=== PATIENT | female | born 1940 | race Caucasian/White ===

== ENCOUNTER 2018-03-18 11:59 | Inpatient (IN) | payer OTHER, SELFPAY ==
[2018-03-18 12:07] VITALS: BP 179/89; PULSE 86; RESP 21; TEMP 36.9; O2SAT 98; BMI 36.8
--- NOTE | 2018-03-18 12:38 | DI.RAD.S_ITS ---
PROCEDURE: XR KNEE RT 3V INDICATIONS: fall TECHNIQUE: 3 views of the knee were acquired. COMPARISON: [facility], XR KNEE ARTHRITIC SERIES , 01/22/2018, 8:28. [facility], XR KNEE ARTHRITIC SERIES , 02/25/2018, 8:23. FINDINGS: Bones: Previously seen patellar fracture now demonstrates increased, severe displacement, measuring roughly 25 mm craniocaudal. No suspicious bony lesions. Right knee arthroplasty. Soft tissues: No joint effusion. No suspicious soft tissue calcifications. IMPRESSION: 1. Increased displacement of patellar fracture as described above. 2. Knee arthroplasty. Dictated by: Cristian Hartman M.D. on 03/18/2018 at 13:07 Approved by: Cristian Hartman M.D. on 03/18/2018 at 13:08
[2018-03-18 13:00] VITALS: BP 159/111; PULSE 82; RESP 16; O2SAT 100
[2018-03-18 14:30] VITALS: BP 143/69; PULSE 80; O2SAT 99
--- NOTE | 2018-03-18 14:34 | ED_ITS ---
HPI - Extremity Injury (Lower) <Christal Fierro PA-C - Last Filed: 03/18/18 21:59> General Chief Complaint: Extremity Injury, Lower Stated Complaint: Fall, dislocated R knee Time Seen by Provider: 03/18/18 14:33 Source: EMS Mode of arrival: EMS Limitations: no limitations History of Present Illness HPI Narrative: This 77-year-old female who has a history of R. patellar fx last November returns due to fall today. She got her foot caught on the metal edge of a cement step and fell onto the sidewalk. She states she actually fell onto her left elbow and bumped her left hip, both of which feel fine, but the impact rolled her onto her right knee, which she had on the sidewalk. She was unable to get up due to pain in the knee and EMS was called. She states that she did not hit her head, no LOC, no neck pain. She denies any other injury, states she knew exactly what had happened at the time, now concerned about her previous fracture. Related Data Home Medications Medication Instructions Recorded Confirmed No Known Home Medications 03/18/18 03/18/18 Allergies Allergy/AdvReac Type Severity Reaction Status Date / Time Sulfa (Sulfonamide AdvReac Nausea Verified 03/18/18 12:12 Antibiotics) Review of Systems <Christal Fierro PA-C - Last Filed: 03/18/18 21:59> Review of Systems All systems reviewed & are unremarkable except as noted in HPI and below Exam <Christal Fierro PA-C - Last Filed: 03/18/18 21:59> Narrative Exam Narrative: GENERAL APPEARANCE: Patient sitting comfortably, in no distress. LUNGS: Clear to auscultation bilaterally. HEART: Rate and rhythm regular without murmur, normal S1 and S2, no S3 or S4. DERMATOLOGIC: Ecchymoses over the right patella, faint ecchymoses and very superficial abrasions over the left elbow. MUSCULOSKELETAL: No tenderness to palpation over the left hip. No tenderness over the left elbow or forearm, full range of motion. There is right knee effusion, tender throughout the patella, unable to fully extend and can flex to less than 45? secondary to tenderness. EXTREMITIES: No cyanosis or edema NEUROVASCULAR: Left lower extremity pedal pulses 2+, sensation grossly intact Initial Vital Signs Initial Vital Signs: Vital Signs Temperature 98.5 F 03/18/18 12:07 Pulse Rate 86 03/18/18 12:07 Respiratory Rate 21 03/18/18 12:07 Blood Pressure 179/89 H 03/18/18 12:07 Pulse Oximetry 98 03/18/18 12:07 <Rosalee Burch DO - Last Filed: 03/19/18 08:20> Initial Vital Signs Initial Vital Signs: Vital Signs Temperature 98.5 F 03/18/18 12:07 Pulse Rate 86 03/18/18 12:07 Respiratory Rate 21 03/18/18 12:07 Blood Pressure 179/89 H 03/18/18 12:07 Pulse Oximetry 98 03/18/18 12:07 Course <Christal Fierro PA-C - Last Filed: 03/18/18 21:59> Additional Information: I have spoken with patient's Orthopod, Dr. Bellamy, who reviewed xrays and plans repair for tomorrow. Patient will be admitted. Orders Ordered: Vancomycin HCl/Dextrose (Vancomycin) 1,000 mg in 200 mls @ 200 mls/hr IV NOW ONE Stop: 03/19/18 14:57 Lactated Ringer's (Lactated Ringers) 1,000 mls @ 75 mls/hr IV CONT WALI Morphine Sulfate (Morphine) 2 mg IV Q2HR PRN PRN Reason: Pain, Moderate (4-6) Last Admin: 03/19/18 07:48 Dose: 2 mg Admin: 03/19/18 04:44 Dose: 2 mg Admin: 03/19/18 01:00 Dose: 2 mg Admin: 03/18/18 21:58 Dose: 2 mg Admin: 03/18/18 20:19 Dose: 2 mg Morphine Sulfate (Morphine) 4 mg IV Q2HR PRN PRN Reason: Pain, Severe (7-10) Sodium Chloride (Normal Saline 0.9% Flush) 10 ml IV PRN PRN PRN Reason: Flush Sodium Chloride (Normal Saline 0.9% Flush) 10 ml IV BID WALI Last Admin: 03/19/18 07:49 Dose: 10 ml Admin: 03/18/18 20:19 Dose: 10 ml Discontinued Medications Morphine Sulfate (Morphine) 1 mg IV Q2HR PRN PRN Reason: Pain, Moderate (4-6) Vital Signs - 8 hr 03/19/18 00:35 03/19/18 05:30 Temperature 98.2 F 97.9 F Pulse Rate 93 H 93 H Respiratory Rate 18 18 Blood Pressure 126/58 L 130/64 Pulse Oximetry 100 99 <Rosalee Burch DO - Last Filed: 03/19/18 08:20> Orders Ordered: Vancomycin HCl/Dextrose (Vancomycin) 1,000 mg in 200 mls @ 200 mls/hr IV NOW ONE Stop: 03/19/18 14:57 Lactated Ringer's (Lactated Ringers) 1,000 mls @ 75 mls/hr IV CONT WALI Morphine Sulfate (Morphine) 2 mg IV Q2HR PRN PRN Reason: Pain, Moderate (4-6) Last Admin: 03/19/18 07:48 Dose: 2 mg Admin: 03/19/18 04:44 Dose: 2 mg Admin: 03/19/18 01:00 Dose: 2 mg Admin: 03/18/18 21:58 Dose: 2 mg Admin: 03/18/18 20:19 Dose: 2 mg Morphine Sulfate (Morphine) 4 mg IV Q2HR PRN PRN Reason: Pain, Severe (7-10) Sodium Chloride (Normal Saline 0.9% Flush) 10 ml IV PRN PRN PRN Reason: Flush Sodium Chloride (Normal Saline 0.9% Flush) 10 ml IV BID WALI Last Admin: 03/19/18 07:49 Dose: 10 ml Admin: 03/18/18 20:19 Dose: 10 ml Discontinued Medications Morphine Sulfate (Morphine) 1 mg IV Q2HR PRN PRN Reason: Pain, Moderate (4-6) Vital Signs - 8 hr 03/19/18 00:35 03/19/18 05:30 Temperature 98.2 F 97.9 F Pulse Rate 93 H 93 H Respiratory Rate 18 18 Blood Pressure 126/58 L 130/64 Pulse Oximetry 100 99 MDM - Extremity Injury (Lower) <Christal Fierro PA-C - Last Filed: 03/18/18 21:59> Lab Data Result diagrams: 03/18/18 16:08 03/18/18 16:08 Lab Results 03/18/18 03/18/18 03/18/18 Range/Units 16:08 16:08 Unknown WBC 6.4 (4.5-11.0) X10^3/uL RBC 4.25 (4.0-5.2) X10^6/uL Hgb 12.1 (12.0-16.0) g/dL Hct 36.3 (36-46) % MCV 85.4 (80-100) fL MCH 28.6 (26-34) PG MCHC 33.4 (30-36) % RDW 14.5 (11.6-14.8) % Plt Count 267 (150-400) X10^3/uL Neut % (Auto) 70.6 (50-75) % Lymph % (Auto) 16.3 L (25-40) % [place] % (Auto) 8.9 (3-14) % Eos % (Auto) 3.2 (2-4) % Baso % (Auto) 1.0 (0-2) % Neut # (Auto) 4500 (4414-7699) /uL PT 10.6 (10.1-12.7) SECONDS INR 0.9 (0.9-1.3) APTT 35 (26.4-36.2) SECONDS Sodium 140 (137-145) mmol/L Potassium 4.2 (3.4-5.1) mmol/L Chloride 105 (98-107) mmol/L Carbon Dioxide 28 (22-32) mmol/L BUN 24 H (7-17) mg/dL Creatinine 1.00 (0.52-1.04) mg/dL Estimated GFR 53.8 L (>60) mL/min BUN/Creatinine Ratio 24.0 H (6-22) Glucose 90 (80-110) mg/dL Calcium 9.4 (8.4-10.2) mg/dL Labs pending Imaging Data knee: Radiologist's impression: [address] [address] XRay Report Signed Patient: Catrachita Bellamy MR#: [id number] : 1940 Acct:[id number] Age/Sex: 77 / F Date of Service: 03/18/18 Loc: ED Accession Number: [id number] Procedure: XR knee RT 3V Ordering Provider: Rosalee Burch D.O. PROCEDURE: XR KNEE RT 3V INDICATIONS: fall TECHNIQUE: 3 views of the knee were acquired. COMPARISON: [facility] [place], CR, XR KNEE ARTHRITIC SERIES BI, 01/22/2018, 8:28. [facility] [place], CR, XR KNEE ARTHRITIC SERIES BI, 02/25/2018, 8:23. FINDINGS: Bones: Previously seen patellar fracture now demonstrates increased, severe displacement, measuring roughly 25 mm craniocaudal. No suspicious bony lesions. Right knee arthroplasty. Soft tissues: No joint effusion. No suspicious soft tissue calcifications. IMPRESSION: 1. Increased displacement of patellar fracture as described above. 2. Knee arthroplasty. Dictated by: Cristian Hartman M.D. on 03/18/2018 at 13:07 Approved by: Cristian Hartman M.D. on 03/18/2018 at 13:08 ECG Data Attestation: I personally reviewed and interpreted this ECG as follows: (Normal sinus rhythm, rate 82) Prior ECG tracings: not available for review <Rosalee Burch, DO - Last Filed: 03/19/18 08:20> Lab Data Lab Results 03/18/18 03/18/18 03/18/18 Range/Units 16:08 16:08 Unknown WBC 6.4 (4.5-11.0) X10^3/uL RBC 4.25 (4.0-5.2) X10^6/uL Hgb 12.1 (12.0-16.0) g/dL Hct 36.3 (36-46) % MCV 85.4 (80-100) fL MCH 28.6 (26-34) PG MCHC 33.4 (30-36) % RDW 14.5 (11.6-14.8) % Plt Count 267 (150-400) X10^3/uL Neut % (Auto) 70.6 (50-75) % Lymph % (Auto) 16.3 L (25-40) % [place] % (Auto) 8.9 (3-14) % Eos % (Auto) 3.2 (2-4) % Baso % (Auto) 1.0 (0-2) % Neut # (Auto) 4500 (0029-6861) /uL PT 10.6 (10.1-12.7) SECONDS INR 0.9 (0.9-1.3) APTT 35 (26.4-36.2) SECONDS Sodium 140 (137-145) mmol/L Potassium 4.2 (3.4-5.1) mmol/L Chloride 105 (98-107) mmol/L Carbon Dioxide 28 (22-32) mmol/L BUN 24 H (7-17) mg/dL Creatinine 1.00 (0.52-1.04) mg/dL Estimated GFR 53.8 L (>60) mL/min BUN/Creatinine Ratio 24.0 H (6-22) Glucose 90 (80-110) mg/dL Calcium 9.4 (8.4-10.2) mg/dL Discharge Plan Departure Patient Disposition: Admitted As Inpatient Clinical Impression: Patellar fracture Discharge Date/Time: 03/18/18 17:04 Interventions: ED Discharge Assessment Last Done: 03/18/18 17:04 Admit Date/Time: 03/18/18 15:58 Admit Provider: Doris Bellamy <Rosalee Burch DO - Last Filed: 03/19/18 08:20> Cosign ED Attending Cosignature Attestation: I was immediately available in the department for consultation. This documentation has been reviewed and I agree with assessment and plan. Supervised by Rosalee Burch DO
[2018-03-18 16:12] LABS: INR 0.9 (0.9-1.3); Prothrombin Time 10.6 SECONDS (10.1-12.7)
[2018-03-18 16:14] LABS: PTT Partial Thromboplastin Tim 35 SECONDS (26.4-36.2)
[2018-03-18 16:16] LABS: Add Manual Diff / Slide Review NO; Eosinophils Percent Auto 3.2 % (2-4); Hematocrit 36.3 % (36-46); Hemoglobin 12.1 g/dL (12.0-16.0); Lymphocytes Percent Auto 16.3 % (25-40); Mean Corpuscular HGB Conc 33.4 % (30-36); Mean Corpuscular Hemoglobin 28.6 PG (26-34); Mean Corpuscular Volume 85.4 fL (80-100); Monocytes Percent Auto 8.9 % (3-14); Neutrophils Absolute Auto 4500 /uL (1500-7000); Neutrophils Percent Auto 70.6 % (50-75); Platelet Count 267 X10^3/uL (150-400); Red Blood Cell Count 4.25 X10^6/uL (4.0-5.2); Red Cell Distribution Width 14.5 % (11.6-14.8); White Blood Cell Count 6.4 X10^3/uL (4.5-11.0)
[2018-03-18 16:29] LABS: Blood Urea Nitrogen 24 mg/dL (7-17); Calcium 9.4 mg/dL (8.4-10.2); Carbon Dioxide 28 mmol/L (22-32); Chloride 105 mmol/L (98-107); Estimated Glomerular Filt Rate 53.8 mL/min (>60); Glucose 90 mg/dL (80-110); HEMOLYSIS < 15 (0-50); Potassium 4.2 mmol/L (3.4-5.1); Sodium 140 mmol/L (137-145)
[2018-03-18 16:30] VITALS: BP 162/77; PULSE 87; O2SAT 99
[2018-03-18 17:10] VITALS: BP 146/76; PULSE 83; RESP 18; TEMP 36.7; O2SAT 99
[2018-03-18 17:20] VITALS: BMI 36.8
--- NOTE | 2018-03-18 19:42 | PM.HP.1 ---
History of Present Illness Date Patient Seen: 03/18/18 Time Patient Seen: 18:01 Chief complaint: Fall, dislocated R knee Narrative: Natalie is a pleasant 77-year-old female with a history of a right total knee arthroplasty in 2008. She was doing reasonably well until October of this year when she fell and landed on her right knee and then had increased right knee pain and a popping sensation. X-rays showed evidence of minor probable patella fracture without disruption of her patellar component. She was treated conservatively and went on to have radiographic evidence of a probable union of her right patella. Her pain markedly decreased and she had resumed her activities including volunteering at the local [employer]. She was coming out of the middle school today when she caught her foot and fell directly on her right leg and noted the acute onset of fairly severe right knee pain. She had difficulty with weight-bearing and ongoing pain. She came to [facility] for evaluation and was noted to have a displaced right patella fracture. Patient History Medical History Hammer toes, bilateral (Acute) Bilateral primary osteoarthritis of knee (Chronic) Surgical History Status post bilateral knee replacements (Resolved) Status post hysterectomy (Resolved) Family & Social History Family History: Reviewed 03/18/18 by Doris Bellamy MD Social History: household members family Prior Living Arrangements Mobile home Safety & Behavioral: Feels Safe in Current Yes Environment Been Physically Hurt or No Threatened By a Person Suicidal Ideation Description None Tobacco & Substance use: Smoking Status Never smoker alcohol intake never alcohol intake frequency 0-2 drinks per day Substance Use Type does not use Meds Home Medications Medication Instructions Recorded Confirmed Type No Known Home Medications 03/18/18 03/18/18 History Allergies Allergy/AdvReac Type Severity Reaction Status Date / Time Sulfa (Sulfonamide AdvReac Nausea Verified 03/18/18 12:12 Antibiotics) Review of Systems Review of Systems She denies fevers or chills, she notes that she is trying to be fairly physically active and does not have severe balance problems although she does have a history of multiple falls. She lives independently and is mobile. She did not have any chest pain dizziness or shortness of breath prior to her fall. Exam Vital Signs (past 8 hours): - 03/18/18 12:07 03/18/18 13:00 03/18/18 14:30 Temperature 98.5 F Pulse Rate 86 82 80 Respiratory Rate 21 16 Blood Pressure 179/89 H Blood Pressure [Left Arm] 159/111 H 143/69 H Pulse Oximetry 98 100 99 03/18/18 16:30 03/18/18 17:10 Temperature 98.0 F Pulse Rate 87 83 Respiratory Rate 18 Blood Pressure 146/76 H Blood Pressure [Left Arm] 162/77 H Pulse Oximetry 99 99 Oxygen Delivery Method Room Air Narrative Exam Narrative: HEENT is benign, neck is supple, cor regular rate and rhythm, lungs clear, abdomen benign, right lower extremity is remarkable for well-healed midline incision over the knee she has an obvious extensor lag her range of motion is 30? with pain with any attempted additional flexion, her skin is intact, she is neurologically intact distally and is able to fire toe flexors and extensors Objective Labs Result Diagrams: 03/18/18 16:08 03/18/18 16:08 Labs: Laboratory Results - last 24 hr 03/18/18 03/18/18 03/18/18 16:08 16:08 Unknown WBC 6.4 RBC 4.25 Hgb 12.1 Hct 36.3 MCV 85.4 MCH 28.6 MCHC 33.4 RDW 14.5 Plt Count 267 Neut % (Auto) 70.6 Lymph % (Auto) 16.3 L [place] % (Auto) 8.9 Eos % (Auto) 3.2 Baso % (Auto) 1.0 Neut # (Auto) 4500 PT 10.6 INR 0.9 APTT 35 Sodium 140 Potassium 4.2 Chloride 105 Carbon Dioxide 28 BUN 24 H Creatinine 1.00 Estimated GFR 53.8 L BUN/Creatinine Ratio 24.0 H Glucose 90 Calcium 9.4 Assessment & Plan Plan: Assessment/Plan Narrative: Variance x-rays show a displaced right patella fracture which is transverse. She has a patellar component which is difficult to visualize on the plain x-rays but is likely loose. She has a history of a prior patella injury with a fall back in October. I have recommended right patella repair with probable revision of her right patellar component with a trabecular metal augmentation patellar component. I explained to her that her for patellar fracture is too comminuted and is not reconstructible we may need to do a patellectomy. I think it is unlikely I can fix her with a simple open reduction internal fixation but will be prepared to fix her extensor mechanism with open reduction internal fixation if indicated. Risks benefits complications and concerns regarding long-term extensor function loss and persistent disability after this injury were discussed in detail. She will likely require bracing postoperatively in order to protect the repair. Medical complications including but not limited to bleeding, anesthetic complications, infection or persistent problems with her knee arthroplasty were also discussed in detail. She understands the severity of the injury and is anxious to proceed with surgery. Quality VTE Deep Vein Thrombosis/Pulmonary Embolism Present on Admission: No
[2018-03-18] MEDS: MORPHINE 2 MG/ML INJ IV ×2 (20:19→21:58)
[2018-03-18] MEDS: SODIUM CHLORIDE 0.9% FLUSH 10 ML IV (20:19)
[2018-03-18 20:37] VITALS: BP 117/58; PULSE 97; RESP 16; TEMP 36.8; O2SAT 100
--- NOTE | 2018-03-18 22:53 | PC.NURSE ---
choco 03/18 849: pt arrived from ED via stretcher stated pain to be controlled at rest without pain medications, VSS on RA, CMS intact. Later in shift pain stated to be untolerable and pt requesting something for pain. MD contacted as no holding orders were entered for patient. call or contact centre operator MD approved some prn analgesics to which were administered per order with no stated relief. MD contacted again (this time through pager and not call service as call service kept this staff member on hold for over 30mins) and received larger doses of prn pain medications to better control pain. Pain finally under control with PRN medications, NPO after midnight for anticipated surgery.
[2018-03-19] VITALS (14 sets, daily range): BP systolic 101–157; BP diastolic 56–80; PULSE 79–101; RESP 10–18; TEMP 36.5–37.4; O2SAT 95–100; BMI 36.8
--- NOTE | 2018-03-19 | DI.RAD.S_ITS ---
PROCEDURE: XR KNEE RT 1TO2V INDICATIONS: PATELLA REPLACEMENT TECHNIQUE: 2 postoperative view(s) of the knee acquired. COMPARISON: [facility], CR, XR KNEE RT 3V, 03/18/2018, 12:45. FINDINGS: Bones: Patient is status post artificial patellar replacement. Hardware components are in expected positions. Visualized bony structures are intact. Soft tissues: Overlying postoperative changes are noted. IMPRESSION: Postoperative changes both. Dictated by: Claudia Mcdonald M.D. on 03/19/2018 at 19:23 Approved by: Claudia Mcdonald M.D. on 03/19/2018 at 19:24
[2018-03-19] MEDS: MORPHINE 2 MG/ML INJ IV ×4 (01:00→11:09)
[2018-03-19] MEDS: SODIUM CHLORIDE 0.9% FLUSH 10 ML IV (07:49)
--- NOTE | 2018-03-19 08:12 | PM.PN.1 ---
Subjective Date Patient Seen: 03/19/18 Time Patient Seen: 08:12 Interval history: Natalie is a pleasant 77-year-old female with a history of a right total knee arthroplasty in 2008. She was doing reasonably well until October of this year when she fell and landed on her right knee and then had increased right knee pain and a popping sensation. X-rays showed evidence of minor probable patella fracture without disruption of her patellar component. She was treated conservatively and went on to have radiographic evidence of a probable union of her right patella. Her pain markedly decreased and she had resumed her activities. She had caught her foot and fell directly on her right leg yesterday, and noted the acute onset of fairly severe right knee pain. She had difficulty with weight-bearing and ongoing pain. She was evaluated by Dr. Bellamy and will have surgery this afternoon. She has been NPO last night. Exam Vital Signs (past 8 hours): - 03/19/18 00:35 03/19/18 05:30 Temperature 98.2 F 97.9 F Pulse Rate 93 H 93 H Respiratory Rate 18 18 Blood Pressure 126/58 L 130/64 Pulse Oximetry 100 99 Oxygen Delivery Method Room Air Oxygen Flow Rate 0 Narrative Exam Narrative: Patient lying in bed in NAD. She is alert and oriented X3. Calves are soft, compressible, and nontender bilaterally. No open wounds or lesions on right leg. Objective Labs Result Diagrams: 03/18/18 16:08 03/18/18 16:08 Labs: Laboratory Results - last 24 hr 03/18/18 03/18/18 03/18/18 16:08 16:08 Unknown WBC 6.4 RBC 4.25 Hgb 12.1 Hct 36.3 MCV 85.4 MCH 28.6 MCHC 33.4 RDW 14.5 Plt Count 267 Neut % (Auto) 70.6 Lymph % (Auto) 16.3 L [place] % (Auto) 8.9 Eos % (Auto) 3.2 Baso % (Auto) 1.0 Neut # (Auto) 4500 PT 10.6 INR 0.9 APTT 35 Sodium 140 Potassium 4.2 Chloride 105 Carbon Dioxide 28 BUN 24 H Creatinine 1.00 Estimated GFR 53.8 L BUN/Creatinine Ratio 24.0 H Glucose 90 Calcium 9.4 Assessment & Plan (1) Patellar fracture: Problem details: She will have surgery today to fix her extensor mechanism with open reduction internal fixation. Continue NPO status. She will need a ROM brace after surgery. Qualifiers: Encounter type: initial encounter Fracture alignment: displaced Fracture healing: Fracture morphology: unspecified fracture morphology Fracture type: closed Laterality: right Open fracture type: Qualified Code(s): S82.001A - Unspecified fracture of right patella, initial encounter for closed fracture Current visit: Yes Status: Acute Quality VTE Deep Vein Thrombosis/Pulmonary Embolism Present on Admission: No
[2018-03-19] MEDS: LACTATED RINGERS 1,000 ML 75 ML IV (08:26)
--- NOTE | 2018-03-19 08:45 | CM.DANOTE ---
DCP:Case received, EMR reviewed and met with patient. Introduced self and role. DCP template completed with information currently available. Patient is a 77 year old female who admitted yesterday afternoon to the care of the hospitalist team. PCP: Dr. Carrera. [place] [facility] [place] came to hospital due to increased knee pain after falling. Patient is noted to have a displaced right patella fracture. Patient has had a fracture of this knee before. Met with patient briefly. She is to be having surgery today at approximately 1400. She stated that she lives with her sister Deanne, in [place]. Stated that she uses a cane, but also has a walker and crutches at home. P: DCP to continue to follow. Patient most likely will be working with physical therapy after surgery. Will continue to offer resources that patient may need, if this includes home health as well. Odessa Lynn RN/Ccna
--- NOTE | 2018-03-19 09:06 | PC.NURSE ---
Addendum entered by Jaimie Powell R.N. 03/19/18 13:45: pt to OR Original Note: pt alert and oriented. right leg up on pillow with ice bag. knee cap swollen and bruised. leg repositioned. clear liquid breakfast than NPO. Morphine 2mg IV given with minimal pain relief. IVF started. room air sat 100%
--- NOTE | 2018-03-19 11:40 | PT.IPTN ---
Current Diagnoses Unspecified fracture of right patella, initial encounter for closed fracture (03/18/18) Surgery Performed Operation Date: 03/19/18 14:30 <No data on this case meets the specified criteria> Physical Therapy Treatment Note M3 PT-IP Subjective Start: 03/19/18 11:04 Freq: NEEDED Status: Active Protocol: Document 03/19/18 11:15 HH (Rec: 03/19/18 11:40 HH [id number]) Subjective Physical Therapy Visit Type Type Treatment Note Visit Start Time 11:15 Visit Stop Time 11:30 Total Visit Minutes 15 Notes Surgeon requested measurement for new hinged knee brace for post op. Pt is given a size XL brace mid thigh 20' top of patella 18' tib plateau 14' mid key 13'
[2018-03-19] MEDS: VANCOMYCIN 1,000 MG/200 ML FROZ.PIGGY 200 MG IV (13:55)
--- NOTE | 2018-03-19 14:08 | SUR.HOLD ---
RIGHT KNEE IS SWOLLEN AND ELEVATED ON PILLOW, 2 + PEDAL PULSE (DP) PALPATED.
[2018-03-19] MEDS: fentaNYL 100 MCG/2 ML INJ 50 MCG IV ×2 (14:56→15:01)
[2018-03-19] MEDS: MIDAZOLAM 2 MG/2 ML VIAL IV ×2 (14:56→15:00)
--- NOTE | 2018-03-19 15:23 | SUR.HOLD ---
Femoral block done under ultrasound guidance by Dr. Kimani Araiza between 1453 and 1505. Patient medicated with Fentanyl and Midazolam for comfort/sedation and tolerated the procedure well.
--- NOTE | 2018-03-19 16:12 | SUR.OPER ---
Supine on padded OR bed, head on pillow, arms secured on padded arm boards at <90 degrees abduction, legs uncrossed, safety belt at thigh, tape over blanket over lower legs.
[2018-03-19] MEDS: BUPIVACAINE 0.25% W/ EPI VIAL 50 ML INJ (16:23)
[2018-03-19] MEDS: BUPIVACAINE LIPOSOME 266 MG/20 ML VIAL INJ (16:24)
[2018-03-19] MEDS: LACTATED RINGERS 1,000 ML 42 ML IV (16:55)
--- NOTE | 2018-03-19 18:43 | PM.OP.1 ---
Operative Date/Time/Diagnoses Date of procedure: 03/19/18 Time of procedure: 18:43 Pre-op diagnosis: Markedly displaced right patella fracture, history of right total knee arthroplasty, failed patellar component Post-op diagnosis: same Procedure & Clinicians Procedure: right knee open reduction internal fixation of the patella, revision patellar component right total knee arthroplasty Same procedure as scheduled: Yes Indications: This is a 77-year-old female who is about 10 years status post a right total knee arthroplasty. She fell in October and landed on her right patella did have a problem which looked like a nondisplaced fracture which subsequently appeared to be healing reasonably well. She then fell again 2 days ago and noted severe right knee pain and had a grossly displaced right patella fracture. There did appear to be probable evidence of patellar component loosening. Surgeon: Doris Bellamy Carton Forming Machine Operator: Desmond Davis Anesthesia Type: General and Peripheral nerve block Operative Notes Findings: Grossly displaced right patella fracture, evidence of loosening of the right patellar component, no evidence of injury to the femoral or tibial component or significant polyethylene wear. Adequate but soft bone. Closure Type: primary Specimen(s): none sent Implants & Drains: 1 CC osteocel, Radha size medium 19.5 mm thickness tantalum patellar augmentation component Estimated Blood Loss (mL): 100 Blood products transfused: none Tourniquet time (min): 135 Procedure in detail: Patient was brought to the operating room. A preoperative femoral nerve block was done for pain control. She underwent induction of anesthesia. Her right lower extremity prepped draped standard sterile fashion. High thigh tourniquet was applied and elevated to 250 mm of mercury. Patient's previous midline incision was made dissection was carried out through skin and subcutaneous tissues. Previous suture line was identified and a medial parapatellar arthrotomy was performed. There was a fracture of the patella with gross displacement. There was a large hematoma which was carefully evacuated. There is moderate tearing of the retinaculum both medially and laterally. The patella was meticulously mobilized. The component was noted to be loose. It did have some residual stability. Oscillating saw was used to removed the patellar component. The patellar pegs were then carefully removed. Bony cement was removed from the undersurface of the patella. The residual patella was noted to be 12 mm. One of the parts of the fracture extended into 1 of the peg holes. The bone was meticulously mobilized. Used a combination of clamps in addition to sewing the patella back together with FiberWire to reduce the fracture. The fracture edge was meticulously mobilized cleaned and reduced in order to allow potential for bony healing. There was some bone loss and 1 cc of osteocel was ultimately packed around the patellar fracture size and previous peg holes. A Reamer was then used to ream the patella in preparation for the tantalum patellar component. Small amount of bone was carefully removed in order to thin the residual patellar shell to allow implantation of the component. Multiple fiber wires were placed through the underlying bone sewing the metal base Coats plate into the bone both the superior fragment as well as the inferior pole fragment which was held reduced. Drill holes were placed through the residual bone in order to attach the FiberWire to the component and further reduce the fracture. Once the base plate had been completely stabilized trial reduction was done showed acceptable tracking of the patella without overstuffing of the joint. I placed her through a gentle range of motion but did not do hyperflexion because of the fracture. The polyethylene component was then cemented into place without difficulty. Free cement was carefully cleared. The component stability was once again checked. Knee was meticulously irrigated with normal saline. Pulse lavage was used. Additional sutures were used to provide additional stability to the fracture for the open reduction and fixation. The retinaculum was closed in order to additionally support the repair with interrupted FiberWire. The medial parapatellar arthrotomy was closed with Vicryl and supplemented with a few nonabsorbable sutures. Exparel and Marcaine were injected. The wound was closed with running maryan stitches and skin wiley. Heather dressing was placed. Complications: none Condition: stable Disposition: PACU Plan for aftercare: Weightbearing as tolerated right lower extremity, knee brace range of motion 0-30 degrees, radio time salesperson brace use for at least 6 weeks postoperatively. Home when safe.
[2018-03-19] MEDS: LACTATED RINGERS 1,000 ML 125 ML IV ×2 (20:01→23:51)
[2018-03-19] MEDS: OXYCODONE IR 5 MG TABLET PO ×2 (20:03→23:49)
[2018-03-19] MEDS: ACETAMINOPHEN 325 MG TABLET 975 MG PO (20:03)
[2018-03-19] MEDS: DOCUSATE 100 MG CAPSULE PO (20:04)
[2018-03-19] MEDS: ASPIRIN EC 81 MG TABLET PO (20:04)
--- NOTE | 2018-03-19 20:48 | PC.NURSE ---
Returned to room from PACu @ 1925. Alert/oriented. IVF infusing via pump as per orders into left hand w/o incidense. Paolo wrap to right knee CDI, brace in place. Call light w/in reach, bed alarm on for pt safety. Stable post op course. Continue w/plan of care.
[2018-03-20] MEDS: CEFAZOLIN 2 GM/100 ML FROZ.PIGGY IV ×2 (02:01→09:40)
[2018-03-20] MEDS: OXYCODONE IR 5 MG TABLET PO ×3 (02:57→08:34)
[2018-03-20 04:49] VITALS: BP 120/61; PULSE 87; RESP 15; TEMP 36.9; O2SAT 95
[2018-03-20 05:48] LABS: Hematocrit 30.6 % (36-46); Hemoglobin 10.5 g/dL (12.0-16.0)
--- NOTE | 2018-03-20 07:55 | PM.PNPO.1 ---
Subjective Date Patient Seen: 03/20/18 Time Patient Seen: 07:55 Interval history: Hospital day 2, postop day 1 following right patellar fracture ORIF. She has not been out of bed since surgery. Having moderate pain. Oxycodone 5 mg lasting only about 2-3 hours. Does have a knee brace in place. She was having some numbness and tingling to her lower leg. This straps for the thigh part of the brace or loosen and this seemed to help her symptoms. Exam Vital Signs (past 8 hours): - 03/20/18 04:49 Temperature 98.4 F Pulse Rate 87 Respiratory Rate 15 Blood Pressure 120/61 Pulse Oximetry 95 Oxygen Delivery Method Room Air Oxygen Flow Rate 0 Narrative Exam Narrative: Alert, in no acute distress lying in bed. The right leg. Paolo wrap and jose francisco dressing in place with good vacuum. Mild swelling to knee and lower leg. Good pulses and sensation to feet. Alesia knee brace in place. Hemovac in place with decreased drainage. Objective Labs Result Diagrams: 03/20/18 05:25 03/18/18 16:08 Labs: Laboratory Results - last 24 hr 03/20/18 05:25 Hgb 10.5 L Hct 30.6 L Assessment & Plan Post-op Postoperative Procedures Operation Date: 03/19/18 14:30 Actual Procedures Side Surgeon p ORIF Patella fx w/Patella replacement component Right Doris Evelin Bellamy MD Will increase oxycodone 5 mg 2 tablets q.3h for more severe pain. Patient will work with physical therapy today. Anticipate DC Hemovac if drainage decreased. Patient does have help at home. Will consider discharge home later today if stable or possibly tomorrow. Quality VTE Deep Vein Thrombosis/Pulmonary Embolism Present on Admission: No
[2018-03-20 07:58] VITALS: BP 139/74; PULSE 97; RESP 18; TEMP 37.3; O2SAT 100
--- NOTE | 2018-03-20 08:03 | PC.NURSE ---
Patient did well with percolone when given Q 3. Did have increase in pain when over the 3 hr timeframe. Brace intact, vazquez wrap intact, picco drain intact.
[2018-03-20] MEDS: ACETAMINOPHEN 325 MG TABLET 975 MG PO ×3 (08:34→21:26)
[2018-03-20] MEDS: ASPIRIN EC 81 MG TABLET PO ×2 (08:35→21:26)
[2018-03-20] MEDS: DOCUSATE 100 MG CAPSULE PO ×2 (08:35→21:26)
[2018-03-20] MEDS: OXYCODONE IR 5 MG TABLET 10 MG PO ×4 (11:07→21:27)
--- NOTE | 2018-03-20 11:23 | PT.IIE ---
Current Diagnoses Unspecified fracture of right patella, initial encounter for closed fracture (03/18/18) Surgery Performed Operation Date: 03/19/18 14:30 Actual Procedures p ORIF Patella fx w/Patella replacement component(Right) - Doris Bellamy MD Surgical History (Last Reviewed 03/18/18 @ 19:48 by Doris Bellamy MD) Status post bilateral knee replacements (Resolved) Status post hysterectomy (Resolved) Medical History (Last Reviewed 03/18/18 @ 19:48 by Doris Bellamy MD) Hammer toes, bilateral (Acute) Bilateral primary osteoarthritis of knee (Chronic) Physical Therapy Inpatient Evaluation/Re-Eval M1 PT/OT-IP Prior Functional Status Start: 03/19/18 11:04 Freq: NEEDED Status: Active Protocol: Document 03/20/18 10:15 (Rec: 03/20/18 11:23 [email or web address]) Medical Review Prior Functional Status Medical History Reviewed Yes Communication No deficits noted Mobility and Gait Pt is an independent amubulator at home and community with a SPC as needed . Pt also has 4ww and crutches but have not used for years. Activities of Daily Living and IADL's Pt is independent for all ADLs and IADLs with a SPC as needed. Social History Household Members family Living Arrangements Mobile home Number of Floors (Floors) One Floor Number of Stairs To Enter/Railing? 5 STAIRS with B handrailsTO GET INto THE HOUSE Home Environment Standard Height Toilet Walk in Shower Tub/Shower Tub/Shower Doors Home Equipment Four Wheel Walker Straight Cane Crutches Manual Wheelchair Shower Seat with Backrest Grab Bars Near Toilet Grab Bars In Shower Employment Status Retired Additional Social History Comment Pt lives with his sister in a mobile home with 5 MARY. Pt's home has 2 bedroom, one with a bath tub and grab bar in the tub and next to the tolilet, the other one has a walk in shower with shower chair and grab bars. Pt also has a 4WW, SPC, WC and crutches from previous surgeries at home but pt does not need to use it prior this surgery. Pt's sister is PRN RN who usually works 1-2 times a week who will be able to be pt's primary CG if needed. Pt's daughter also lives close by who will also be able to assist pt if needed. Pt's PMH includes B TKA and multiple falls. M2 PT-IP Current Condition Start: 03/19/18 11:04 Freq: NEEDED Status: Active Protocol: Document 03/20/18 10:15 (Rec: 03/20/18 11:23 [email or web address]) Physical Therapy Current Condition Current Condition Evaluation Date 03/20/18 Treatment Diagnosis ORIF R patella fx, difficulty in walking, generalized muscle weakness Onset Date 03/19/18 Precautions Brace Pt is given a hinge knee brace yesterday. Other Precautions MD's prescription : signal timer with brace for 6 weeks; knee flexion lock at 0-30 degrees Weight Bearing Status Weight Bearing Status Weight Bear as Tolerated M3 PT-IP Subjective Start: 03/19/18 11:04 Freq: NEEDED Status: Active Protocol: Document 03/20/18 10:15 HH (Rec: 03/20/18 11:23 [email or web address]) Subjective Physical Therapy Visit Type Type Initial Evaluation Visit Start Time 10:15 Visit Stop Time 10:45 Total Visit Minutes 30 Notes Pt agreeable to mobilize with PT. RN reports pt has not been getting OOB and c/o pain 7/10 Number of MANAGER MINING Visits 0 Physical Therapy Visit Comments Patient Comments Pt reports she has numbness and tingling at the bottom of her right foot since surgery. c/o pain 7-8/10 Patient Goals to return home to live with his sister to amb with front wheeled walker as tolerated Therapy Pain Assessment Pain When Pain Assessed During Mobility Pain Present Pain Present Pain Reported Location Right Knee Intensity 7 Scale Used Numeric (1 - 10) Description Aching Acute Pain Management Techniques Apply Cold Timing of Activity with Medications M4 PT-IP Mobility and Gait Start: 03/19/18 11:04 Freq: NEEDED Status: Active Protocol: Document 03/20/18 10:15 HH (Rec: 03/20/18 11:23 [email or web address]) PT-Bed Mobility Assessment Rolling Level of Assist Minimal Assistance 1 Person Assistance Supine to Sit Supine to Sit Moderate Assistance 1 Person Assistance Head of Bed Elevated Bedrails Sit to Supine Sit to Supine Moderate Assistance 1 Person Assistance Head of Bed Elevated Bedrails Scooting Scooting to Edge of Bed Moderate Assistance Scooting Up and Down in Bed Moderate Assistance PT-Transfer Assessment Sit to and From Stand Sit to and from Stand Moderate Assistance 2 Person Assistance Use of Upper Extremities Equipment Transfer Assistive Device Bed Rail Gait Belt Front Wheeled Walker Orthotic/Prosthetic Devices or Brace: Yes Transfers Transfer Destination Bed Chair Transfer Technique Stand Pivot Transfer Ability Level of Assist Moderate Assistance 2 Person Assistance Comments Mobility Comments supine BP 136/88 HR 90 post transfer 150/88 HR 92 Pt requires overall mod A x 1 pa for bed mobility and mod A x 2 pa for transfer activities . Pt requires max cues to use stagger stance for sit to stand and stand to sit to prevent excessive knee flexion . Pt also needs max cue for lateral weight during scooting EOB. Pt performed stand pivot transfer from EOB to bedside chair with step to pattern and excessive lean towards L LE. Pt requested to sit due to give out sensation. pt also appears SOB and fatigue. Pt was then instructed to place her hand on armrest to safely transfer back to chair. Chair in reclined position. call light within reach Gait Assessment Comments Gait Comments did not attempt due to fatigue Stair Climbing Assessment Comments Stair Climbing Comments did not attempt due to fatigue PT-Balance Assessment Sitting Balance and Reactions Static Sitting Balance Ability Good Dynamic Sitting Balance Ability Good Standing Balance and Reactions Static Standing Balance Ability Fair Dynamic Standing Balance Ability Poor M5 PT-IP Objective Assessments Start: 03/19/18 11:04 Freq: NEEDED Status: Active Protocol: Document 03/20/18 10:15 (Rec: 03/20/18 11:23 [email or web address]) Orientation Orientation/Cognition Level of Alertness Alert Orientation Name Age Birthday Month Date Year Day of Week Place Situation Language Function Ability No Deficits Noted Safety Awareness Understands Safety Issues Memory Description No Deficits Noted Gross Range of Motion Upper Extremity ROM Assessment Within Functional Limits Lower Extremity ROM Assessment Right Impaired Impairments to knee flexion 30 degrees Strength Upper Extremity Strength Assessment Within Functional Limits Lower Extremity Strength Assessment Right Impaired Comments Strength Comments 2/5 knee flexion and extension Coordination Assessment Gross Coordination Gross Coordination WNL Sensation Assessment Sensation Gross Sensation Right LE Impaired Light Touch Impaired Proprioception (Position) Impaired Sensation Description Numbness Tingling Comments Sensation Comments at bottom of the right foot M6 PT-IP Treatment Start: 03/19/18 11:04 Freq: NEEDED Status: Active Protocol: Document 03/20/18 10:15 (Rec: 03/20/18 11:23 [email or web address]) Physical Therapy Treatment Exercises Exercises Ankle Pumps Gluteal Sets Quad Sets Heel Slides Straight Leg Raises Education Education Provided Precautions Weight Bearing Status Post-Op Packet Safety M7 PT-IP Assessment and Plan Start: 03/19/18 11:04 Freq: NEEDED Status: Active Protocol: Document 03/20/18 10:15 HH (Rec: 03/20/18 11:23 [email or web address]) PT Summary Assessment and Plan Potential Rehabilitation Potential Good Status of Condition at Evaluation Evolving Summary Impairments Pain ROM Strength Balance Sensation Bed Mobility Transfers Gait Activity Tolerance Assessment Summary Pt is a pleasant 77 yo female s/p ORIF for R patella fx s/p GLF. Pt presents significant difficulty in walking and generalized muscle weakness. Pt requires mod A x 2 for overall mobility and c/o her knee is giving out after standing for 2 minutes. Pt requires max cues for hand placements on walker and chair during transfer and foot placement during sit <---> to prevent excessive knee flexion . Recommended nursing staff to use BSC with stand pivot transfer with 2pa mod A. In my professional opinion, Recommend d/c to SNF at this point due to her extensive needs for assistance for overall functional mobility unless Pt is able to reach her rehab goals prior to d/c to home who also has 5 MARY to her mobile home. Goals Bed Mobility Goal Independent Transfer Goal Independent Gait Goal Independent Gait Distance 30 Other Goals stair climbing x 10 steps with B rails Days to Meet Goals 10 Frequency of Treatment Frequency Of Treatment Twice a Day Treatment Plan Physical Therapy Treatment Plan Bed Mobility Training Transfer Training Gait Training Therapeutic Exercise Balance Retraining Post Op Education Discharge Planning Hot or Cold Pack Other Recommendations and Next Treatment education on stagger stance Focus for STS scooting in bed transfer and gait training as tolerated with 2 person Recommendations To Nursing Amount of Assist Needed 2 Person Assist Discharge Recommendations PT Discharge Recommendations SNF Rehab Other Discharge Recommendations Recommend d/c to SNF at this point due to her extensive needs for assistance for overall functional mobility unless Pt is able to reach her rehab goals prior to d/c to home who also has 5 MARY to her mobile home.
[2018-03-20 11:57] VITALS: BP 140/65; PULSE 93; RESP 18; TEMP 36.7; O2SAT 99
--- NOTE | 2018-03-20 12:38 | PT.IPTN ---
Current Diagnoses Unspecified fracture of right patella, initial encounter for closed fracture (03/18/18) Surgery Performed Operation Date: 03/19/18 14:30 Actual Procedures p ORIF Patella fx w/Patella replacement component(Right) - Doris Bellamy MD Physical Therapy Treatment Note M2 PT-IP Current Condition Start: 03/19/18 11:04 Freq: NEEDED Status: Active Protocol: Document 03/20/18 10:15 HH (Rec: 03/20/18 11:23 [email or web address]) Physical Therapy Current Condition Current Condition Evaluation Date 03/20/18 Treatment Diagnosis ORIF R patella fx, difficulty in walking, generalized muscle weakness Onset Date 03/19/18 Precautions Brace Pt is given a hinge knee brace yesterday. Other Precautions MD's prescription : manager maritime with brace for 6 weeks; knee flexion lock at 0-30 degrees Weight Bearing Status Weight Bearing Status Weight Bear as Tolerated M3 PT-IP Subjective Start: 03/19/18 11:04 Freq: NEEDED Status: Active Protocol: Document 03/20/18 11:45 HH (Rec: 03/20/18 12:38 [email or web address]) Subjective Physical Therapy Visit Type Type Treatment Note Visit Start Time 11:45 Visit Stop Time 12:05 Total Visit Minutes 20 Notes Pt requested to use commode for toileting. Number of RADIATION CONTROL TECHNICIAN Visits 0 Physical Therapy Visit Comments Patient Comments Pt states her pain went down a little bit and numbness and tingling at the bottom of the right foot start to go away. Therapy Pain Assessment Pain When Pain Assessed During Mobility Pain Present Pain Present Pain Reported Location Right Knee Intensity 5 Scale Used Numeric (1 - 10) Description Aching Acute Pain Management Techniques Apply Cold Modification of Treatment Re-positioning Timing of Activity with Medications M4 PT-IP Mobility and Gait Start: 03/19/18 11:04 Freq: NEEDED Status: Active Protocol: Document 03/20/18 11:45 HH (Rec: 03/20/18 12:38 [email or web address]) PT-Bed Mobility Assessment Scooting Scooting to Edge of Bed Minimal Assistance Scooting Up and Down in Bed Minimal Assistance PT-Transfer Assessment Sit to and From Stand Sit to and from Stand Moderate Assistance 2 Person Assistance Equipment Transfer Assistive Device Gait Belt Front Wheeled Walker Orthotic/Prosthetic Devices or Brace: Yes Transfers Transfer Destination Chair Bedside Commode Transfer Technique Stand Step Pivot Transfer Ability Level of Assist Moderate Assistance 2 Person Assistance Comments Mobility Comments Pt was seen on her bedside chair and requested to use BSC for toileting. Pt performed sit to stand with mod A x 2pa and FWW. Pt began to understand to use stagger stance for sit <----> stand to avoid excessive stress on patella. Pt then performed stand step pivot transfer to BSC and able to demonstrates a safe stand to sit with one hand reach back for armrest. Gait Assessment Gait Gait Assistance Required: Moderate Assistance 2 Person Assist Distance (Feet) 2 Able to Maintain Weight Bearing Status Yes During Gait Assistive Devices Assistive Device Gait Belt Front Wheeled Walker Orthotic/Prosthetic Devices or Brace: Yes Gait Deviations General Gait Pattern Antalgic Decreased Stride Length Decreased Feet Clearance Step-to Gait Factors Limiting Gait Function Factors Limiting Gait Function Decreased Activity Tolerance Decreased Strength Limited Range of Motion Pain Poor Balance Poor Safety Awareness Comments Gait Comments Pt amb side steps from bedside chair to BSC and back to chair after toileting. Pt demonstrates increased weight bearing and step to antalgic gait due to pain and fear of give out episode. However, pt states her numbness and tingling went away during mobility and feel more stable compaerd to the first PT session an hour ago. PT-Balance Assessment Sitting Balance and Reactions Static Sitting Balance Ability Good Dynamic Sitting Balance Ability Good Standing Balance and Reactions Static Standing Balance Ability Fair Dynamic Standing Balance Ability Poor M5 PT-IP Objective Assessments Start: 03/19/18 11:04 Freq: NEEDED Status: Active Protocol: Document 03/20/18 10:15 (Rec: 03/20/18 11:23 [email or web address]) Orientation Orientation/Cognition Level of Alertness Alert Orientation Name Age Birthday Month Date Year Day of Week Place Situation Language Function Ability No Deficits Noted Safety Awareness Understands Safety Issues Memory Description No Deficits Noted Gross Range of Motion Upper Extremity ROM Assessment Within Functional Limits Lower Extremity ROM Assessment Right Impaired Impairments to knee flexion 30 degrees Strength Upper Extremity Strength Assessment Within Functional Limits Lower Extremity Strength Assessment Right Impaired Comments Strength Comments 2/5 knee flexion and extension Coordination Assessment Gross Coordination Gross Coordination WNL Sensation Assessment Sensation Gross Sensation Right LE Impaired Light Touch Impaired Proprioception (Position) Impaired Sensation Description Numbness Tingling Comments Sensation Comments at bottom of the right foot M6 PT-IP Treatment Start: 03/19/18 11:04 Freq: NEEDED Status: Active Protocol: Document 03/20/18 11:45 HH (Rec: 03/20/18 12:38 [email or web address]) Physical Therapy Treatment Exercises Exercises Ankle Pumps Gluteal Sets Quad Sets Heel Slides Straight Leg Raises Education Education Provided Precautions Weight Bearing Status Post-Op Packet Safety M7 PT-IP Assessment and Plan Start: 03/19/18 11:04 Freq: NEEDED Status: Active Protocol: Document 03/20/18 11:45 HH (Rec: 03/20/18 12:38 [email or web address]) PT Summary Assessment and Plan Summary Assessment Summary Pt presents slight improvement compared to first PT session early this morning. Pt is able to increase weight bearing on R LE and used stagger stance during sit <---> stand activities to avoid excessive stress on patellafemoral joint . Cont recommend to have 2pa for mobility with walker. Goals Bed Mobility Goal Contact Guard Assistance Transfer Goal Contact Guard Assistance Front Wheeled Walker Gait Goal Contact Guard Assistance Front Wheel Walker Gait Distance 50 Other Goals steps x 10 B rails Days to Meet Goals 5 Frequency of Treatment Frequency Of Treatment Twice a Day Treatment Plan Other Recommendations and Next Treatment bed mob, transfer, gait Focus training as amaris Recommendations To Nursing Amount of Assist Needed 2 Person Assist Discharge Recommendations PT Discharge Recommendations Home with 24/7 Assist Home Health SNF Rehab Other Discharge Recommendations Home with 24/7 and would be an ideal option for her depends on her rehab progress.
[2018-03-20 15:32] VITALS: BP 126/71; PULSE 90; RESP 18; TEMP 37.3; O2SAT 99
[2018-03-20 21:30] VITALS: BP 146/68; PULSE 92; RESP 18; TEMP 37.3; O2SAT 99
[2018-03-21 00:07] VITALS: BP 129/62; PULSE 89; RESP 16; TEMP 37.1; O2SAT 95
[2018-03-21] MEDS: OXYCODONE IR 5 MG TABLET 10 MG PO ×4 (00:42→12:21)
[2018-03-21 06:08] VITALS: BP 124/65; PULSE 83; RESP 16; TEMP 36.9; O2SAT 100
[2018-03-21 08:00] VITALS: BP 135/65; PULSE 88; RESP 18; TEMP 37.3; O2SAT 97
[2018-03-21] MEDS: ACETAMINOPHEN 325 MG TABLET 975 MG PO (08:06)
[2018-03-21] MEDS: ASPIRIN EC 81 MG TABLET PO (08:06)
[2018-03-21] MEDS: DOCUSATE 100 MG CAPSULE PO (08:06)
--- NOTE | 2018-03-21 08:06 | PM.DS.1 ---
History of Present Illness Date Patient Seen: 03/21/18 Time Patient Seen: 08:07 Chief complaint: Fall, dislocated R knee Narrative: Hospital day 3, postop day 2 following right patellar fracture ORIF by Dr. Bellmay. Patient remained stable postoperatively. Pain is improving with oxycodone 10 mg. Patient did work with PT yesterday and able to do transfers and some ambulation. Right knee brace at 0-30 degrees. Discharge Providers Date of admission: 03/19/18 19:26 Primary care physician: Pati Carrera DO Consults: 03/19/18 19:26 Consult to Discharge Planning Routine Comment: Consult to Physical Therapy Evaluate & Treat Comment: Physician Instructions: time cycle operator brace, 0-30, WBAT, no right LE strengthe Consult to Respiratory Therapy Evaluate & Treat Comment: Physician Instructions: Evaluate and treat Discharge provider: Slim Herring PA-C Discharge Date: 03/21/18 Summary Discharge Diagnosis: Status post right patellar fracture ORIF, periprosthetic Hospital Course: Patient brought to hospital on 10/27/2018 for above-noted surgery. Remained stable postoperatively. Initially had some difficulty with pain control but gradually improved. She is able to ambulate with brace on. Patient ready for discharge home on postop day 2. Status at Discharge Cognitive/behavioral status at discharge: Alert oriented no acute distress. Functional status at discharge: uses cane/walker Overall status at discharge: patient is progressing back to baseline Time Spent with Patient Less than 30 minutes Exam Vital Signs (past 8 hours): - 03/21/18 00:07 03/21/18 06:08 Temperature 98.8 F 98.4 F Pulse Rate 89 83 Respiratory Rate 16 16 Blood Pressure 129/62 124/65 Pulse Oximetry 95 100 Oxygen Delivery Method Room Air Oxygen Flow Rate 0 Narrative Exam Narrative: Right leg. Knee brace in place. Paolo wrap and jose francisco dressing in place without drainage or inflammation. No calf pain or swelling. Pulses symmetrical. Objective Labs Result Diagrams: 03/20/18 05:25 03/18/18 16:08 Discharge Plan Discharge Plan Discharge Problem: Patellar fracture Patient Disposition: Home Discharge comment: Patient will be discharged home after cleared by PT. She will wear hinged knee brace 0-30 degrees continuously but may take it off for bathing with keeping her leg straight. Discharge Med Rec/Prescriptions Prescriptions: New acetaminophen 325 mg Tablet 975 mg PO TID Qty: 30 RF: 0 aspirin 81 mg Tablet,Delayed Release (Dr/Ec) 81 mg PO BID Qty: 60 RF: 0 docusate sodium 100 mg Capsule 100 mg PO BID Qty: 30 RF: 0 oxycodone 5 mg Tablet 10 mg PO Q3HR PRN (Reason: Pain, Severe (7-10)) Qty: 40 RF: 0 Provider Discharge Instructions Diet: Diet as Tolerated Activity: Ambulate as tolerated with a knee brace on continuously except to take it off for bathing. Cold/Heat Therapy: Cold pack to knee as needed. Skin/Wound/Dressing Care Report to your healthcare provider any signs of infection, such as:: chills, fever, night sweats, increased pain, unusual drainage and unusual redness Dressing: Keep jose francisco dressing in place until office visit. Discharge Data Primary Care Provider: Pati Carrera Attending Provider: Doris Bellamy Admit Date/Time: 03/19/18 19:26 Quality VTE Deep Vein Thrombosis/Pulmonary Embolism Present on Admission: No
--- NOTE | 2018-03-21 09:30 | PT.IPTN ---
Current Diagnoses Unspecified fracture of right patella, initial encounter for closed fracture (03/19/18) Surgery Performed Operation Date: 03/19/18 14:30 Actual Procedures p ORIF Patella fx w/Patella replacement component(Right) - Doris Bellamy MD Physical Therapy Treatment Note M2 PT-IP Current Condition Start: 03/19/18 11:04 Freq: NEEDED Status: Active Protocol: Document 03/20/18 10:15 HH (Rec: 03/20/18 11:23 [email or web address]) Physical Therapy Current Condition Current Condition Evaluation Date 03/20/18 Treatment Diagnosis ORIF R patella fx, difficulty in walking, generalized muscle weakness Onset Date 03/19/18 Precautions Brace Pt is given a hinge knee brace yesterday. 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 Therapy Pain Assessment Pain When Pain Assessed During Mobility Pain Present Pain Present Pain Reported M4 PT-IP Mobility and Gait Start: 03/19/18 11:04 Freq: NEEDED Status: Active Protocol: Document 03/21/18 09:30 GGD (Rec: 03/21/18 11:49 GGD [email or web address]) PT-Bed Mobility Assessment Supine to Sit Supine to Sit Minimal Assistance 1 Person Assistance Scooting Scooting to Edge of Bed Minimal Assistance PT-Transfer Assessment Sit to and From Stand Sit to and from Stand Contact Guard Assistance Minimal Assistance 1 Person Assistance Use of Upper Extremities Equipment Transfer Assistive Device Gait Belt Front Wheeled Walker Orthotic/Prosthetic Devices or Brace: Yes Transfers Transfer Destination Chair Wheelchair Transfer Ability Level of Assist Contact Guard Assistance Use of Upper Extremities Comments Mobility Comments Pt needed min A for sit to stand from lower w/c, and CGA from higher bed. Min A with bed mobility for right LE support. Gait Assessment Gait Gait Assistance Required: Contact Guard Assist 1 Person Assist Distance (Feet) 25 Able to Maintain Weight Bearing Status Yes During Gait Assistive Devices Assistive Device Gait Belt Front Wheeled Walker Orthotic/Prosthetic Devices or Brace: Yes Gait Deviations General Gait Pattern Antalgic Decreased Stride Length Decreased Feet Clearance Step-to Gait Factors Limiting Gait Function Factors Limiting Gait Function Decreased Activity Tolerance Decreased Strength Limited Range of Motion Pain Poor Balance Poor Safety Awareness Stair Climbing Assessment Evaluation Level of Assist On Stairs Contact Guard Assistance Devices Stair Climbing Assistive Devices Left Railing Right Railing Technique/Endurance Stair Climbing Direction Ascend and Descend Stair Climbing Technique Step to Step Number of Steps Climbed 3 Query Text: Stair Climbing Set # Repetitions (reps) 1 M5 PT-IP Objective Assessments Start: 03/19/18 11:04 Freq: NEEDED Status: Active Protocol: Document 03/20/18 10:15 (Rec: 03/20/18 11:23 [email or web address]) Orientation Orientation/Cognition Level of Alertness Alert Orientation Name Age Birthday Month Date Year Day of Week Place Situation Language Function Ability No Deficits Noted Safety Awareness Understands Safety Issues Memory Description No Deficits Noted Gross Range of Motion Upper Extremity ROM Assessment Within Functional Limits Lower Extremity ROM Assessment Right Impaired Impairments to knee flexion 30 degrees Strength Upper Extremity Strength Assessment Within Functional Limits Lower Extremity Strength Assessment Right Impaired Comments Strength Comments 2/5 knee flexion and extension Coordination Assessment Gross Coordination Gross Coordination WNL Sensation Assessment Sensation Gross Sensation Right LE Impaired Light Touch Impaired Proprioception (Position) Impaired Sensation Description Numbness Tingling Comments Sensation Comments at bottom of the right foot M6 PT-IP Treatment Start: 03/19/18 11:04 Freq: NEEDED Status: Active Protocol: Document 03/21/18 09:30 GGD (Rec: 03/21/18 11:49 GGD [email or web address]) Physical Therapy Treatment Exercises Exercises Ankle Pumps Gluteal Sets Quad Sets M7 PT-IP Assessment and Plan Start: 03/19/18 11:04 Freq: NEEDED Status: Active Protocol: Document 03/21/18 09:30 GGD (Rec: 03/21/18 11:49 GGD [email or web address]) PT Summary Assessment and Plan Summary Assessment Summary Pt improving with mobility. She was able to progress gait. She was safe with stair mobility. She was slow moving with bed mobility, but only needed assist with right LE. Pt safe for home D/C when medically stable. Frequency of Treatment Frequency Of Treatment Twice a Day Treatment Plan Other Recommendations and Next Treatment bed mob, transfer, gait Focus training as amaris Recommendations To Nursing Amount of Assist Needed 1 Person Assist Discharge Recommendations PT Discharge Recommendations Home with Assistance Home Health
--- NOTE | 2018-03-21 11:47 | CM.DPC ---
Addendum entered by LEDA Carter 03/21/18 13:58: Call from [facility]: They are roughly 2-3 weeks out on HH/PT and are not able to accept patient. Faxed referral to [facility]. Original Note: Discharge Planning/Care Management Document 03/21/18 11:36 (Rec: 03/21/18 11:47 [email or web address]) Discharge Planning Assessment Assigned Form Worker ELDA Weaver Advance Directives? Yes History Provided By Patient Family Member Medical Record Prior Living Arrangements Mobile home Household Members family Type of transporation used prior to Drives own vehicle admit Independent with ADL's Yes Is patient alert and oriented? Yes Community Services used prior to Physical Therapy admission: DME Already Rented / Owned Wheelchair Cane Crutches Patient/Family Preference Home with Home Health Discharge Plan Home with Home Health Community Services Physical Therapy Transportation Arrangement Sister Referrals Initiated Home Health If patient plan is home with home health Yes : Has signed face to face form been completed? Comment Patient to discharge home today with HH/PT. Met with patient and sister: both in agreement to discharge home today with HH. Provided patient with Medicare choice list and patient selected [facility] since she had used them previously. Patient has no preference towards a secondary choice. F2F completed. Faxed HH/PT referral to [facility]. Sister to provide transportation home. Medicare Choice List Provided Yes SNF/HH Preference 1. [facility] 2. No preference Whiteboard Updated in Patient Room with Yes name and ext. # of Form Worker Review Status In Process
--- NOTE | 2018-03-21 13:16 | PC.NURSE ---
Day Shift-Pt states is ready for discharge to home. Pt's sister present to drive pt home and provide care as well. Right knee JESSIE dressing intact, vazquez wrap around. Knee brace on and pt aware to keep on except for when showering and to keep her knee straight. Reviewed discharge summary info from printed discharge packet. Follow up appointment made for Dr. Collins office in [place]. No further voiced concerns by pt or her sister. Reviewed medications, prescription, S/S of infection, mobility, JESSIE dressing care, diet, and when to call physician. Pt left unit at 1314 via wheelchair with INSIDE METER TESTER. Pt had all belongings. Pt left unit in no distress.
== END 2018-03-21 13:15 | disposition home health service (06) | DRG 464 ==
LOC: ED 15:44 → AC 03-19 06:40
PROVIDERS: Admitting Provider Orthopaedic Surgery; Emergency Provider Internal Medicine; Family Provider Orthopaedic Surgery; PCP Family Medicine; Visit Provider Orthopaedic Surgery
PROC: 0SRC0JZ Replacement of Right Knee Joint with Synthetic Substitute, Open Approach (ICD-10-PCS; CPT 27447; principal; 2018-03-19 14:30)
DX: S82.091A Other fracture of right patella, initial encounter for closed fracture (principal); T84.032A Mechanical loosening of internal right knee prosthetic joint, initial encounter; M97.11XA Periprosthetic fracture around internal prosthetic right knee joint, initial encounter; E66.9 Obesity, unspecified; Z68.36 Body mass index [BMI] 36.0-36.9, adult; W18.31XA Fall on same level due to stepping on an object, initial encounter; Y92.480 Sidewalk as the place of occurrence of the external cause
CPT/HCPCS: 36415; 36591; 64450; 73560; 73562; 80048; 85014; 85018; 85025; 85610; 85730; 93005; 97116; 97162; 97530; 99283; 99284; C1776; G0378; C9290; J0690; J2250; J2270; J2704; J3010; J3370

== ENCOUNTER 2018-04-02 21:15 | Inpatient (IN) | payer OTHER, SELFPAY ==
[2018-04-01 15:15] VITALS: BMI 36.2
[2018-04-02] VITALS (14 sets, daily range): BP systolic 121–150; BP diastolic 60–85; PULSE 80–107; RESP 13–24; TEMP 36.8–37.5; O2SAT 96–100; BMI 36.2
--- NOTE | 2018-04-02 | DI.RAD.S_ITS ---
PROCEDURE: XR KNEE RT 1TO2V INDICATIONS: POST OP TECHNIQUE: 2 view(s) of the knee acquired. COMPARISON: [facility], CR, XR KNEE RT 1TO2V, 04/02/2018, 17:05. [facility] [place], CR, XR KNEE 1 OR 2 VIEWS RIGHT, 04/01/2018, 8:44. FINDINGS: Bones: Patient is status post knee joint arthroplasty. The previously seen patellar fracture has been reduced. Hardware components are in expected positions. Visualized bony structures are intact. Soft tissues: Overlying postoperative changes are noted. IMPRESSION: Reduction of patellar fracture. Near the plastic. Dictated by: Cristian Hartman M.D. on 04/02/2018 at 20:11 Approved by: Cristian Hartman M.D. on 04/02/2018 at 20:12
--- NOTE | 2018-04-02 | DI.RAD.S_ITS ---
PROCEDURE: XR KNEE RT 1TO2V INDICATIONS: RIGHT PATELLAR ORIF TECHNIQUE: 2 intraoperative view(s) of the knee acquired. COMPARISON: [facility] [place], CR, XR KNEE 1 OR 2 VIEWS RIGHT, 04/01/2018, 8:44. FINDINGS: Bones: Patient is status post knee joint arthroplasty. Hardware components are in expected positions. Intraoperative imaging obtained during patellar ORIF. Soft tissues: Overlying postoperative changes are noted. IMPRESSION: Intraoperative imaging obtained during patellar ORIF. Dictated by: Cristian Hartman M.D. on 04/02/2018 at 19:49 Approved by: Cristian Hartman M.D. on 04/02/2018 at 19:49
[2018-04-02] MEDS: LACTATED RINGERS 1,000 ML 42 ML IV ×2 (15:30→18:48)
[2018-04-02] MEDS: VANCOMYCIN 1,000 MG/200 ML FROZ.PIGGY 200 MG IV (15:34)
[2018-04-02] MEDS: MIDAZOLAM 2 MG/2 ML VIAL IV (15:53)
--- NOTE | 2018-04-02 16:05 | PM.PREOP ---
Pre-operative Note Interval Note History & Physical reviewed/Exam performed by Physician: Yes Changes to H&P: No H&P completed within 30 days and has changed as indicated here:: right knee wound benign, x ray show patellar fragment is displaced
--- NOTE | 2018-04-02 16:09 | P.OP_ITS ---
Operative Date/Time/Diagnoses Date of procedure: 04/02/18 Time of procedure: 16:20 Pre-op diagnosis: failed patellar ORIF and patellar tendon tear Post-op diagnosis: same Procedure & Clinicians Procedure: Reconstruction right knee patella fracture and patellar tendon tear with repair and Achilles allograft Same procedure as scheduled: Yes Indications: This is an unfortunate 77-year-old female with a remote history of a right total knee arthroplasty was a history of multiple falls who initially sustained a crack in her right patella and subsequently fell and had a displaced right patellar fracture. She is status post a revision of her right knee patellar component and repair of her patellar fracture unfortunately she had failure of the repair. She is brought the operating room for secondary reconstruction with repair and allograft. Surgeon: Doris Bellamy [employer] Teacher'S Aide: Desmond Davis Anesthesia Type: General and Peripheral nerve block Operative Notes Findings: Patellar component appeared to be stable in the proximal fragment of patella, failure of the patellar tendon and the patella fracture through the inferior pole with patella Luna. Adequate reconstruction with suture anchors with fiber tape into the proximal tibia which were used as cerclage wires around the superior pole of the patella multiple sutures and an Achilles tendon autograft reconstruction Closure Type: primary Specimen(s): none sent Implants & Drains: Arthrex suture anchors, Achilles tendon allograft Estimated Blood Loss (mL): 100 Blood products transfused: none Tourniquet time (min): 120 Procedure in detail: The patient was brought to the operating room. Her right lower extremity was prepped and draped in standard sterile fashion. A time-out was performed and antibiotics were given. Patient's right lower extremity was prepped draped standard sterile fashion. High thigh tourniquet was applied and elevated for approximately 2 hr. Patient's midline incision was used. Dissection was carried out through skin and subcutaneous tissues. Previous surgical incision actually was quite well-healed. Sutures were removed. Medial lateral flaps were raised in order to give good visualization of the entire quadriceps mechanism patellar tendon and patella. Patella was carefully mobilized and drawn distally. I did consider excising the bony fragment off of the patellar tendon insertion but did not feel that it would improve the overall reconstruction to remove the bony fragment. I checked the patellar implant it appeared to be stable. The knee was meticulously irrigated with normal saline. Fluoroscopy was brought in for planning for suture anchor repair. We visualize the tibial component joint line and the cement mantle in order to allow insertion of a suture anchor. Multiple sutures were passed through the patellar tendon and the bony fragment inferiorly and then for the FiberWire was used to pull the bony fragment into the patella residual fragment and then sutures were also woven around the top of the patella. Fragment was thin and I did not think it was appropriate to attempt to put a Beath needle through the patella as it was felt that it would likely destabilize the patellar component. Clamp was used to reduce the patellar fracture. A suture anchor with a total of 4 fiber tapes was placed in the proximal lateral tibia. The tapes were then carefully wall then 2 with the tapes were woven around the patella as a cerclage wire in order to allow the patella to be pole distally and take tension off of the patellar tendon repair. Sec tape was woven through the patellar tendon and into the patella around the top of the patella and then back down through the patellar tendon and a 3rd tape was woven through the patellar tendon and more into the medial tissues along the medial aspect of the patella in order to adequately secure the vastus medialis. Multiple sutures of FiberWire and Vicryl used to repair the retinaculum both medially and laterally. Fluoroscopy was used to confirm the reduction of the fragment. Patellar heights was carefully checked. Next a 2nd suture anchor was placed in the medial proximal medial tibia incorporating the 4 FiberWire tapes. The additional FiberWire stitches were then used to secure an Achilles tendon allograft. The soft tissue from the Achilles tendon allograft was used it was meticulously. Sewn as a sleeve over the patellar tendon repaired to the retinaculum both medially and laterally carefully tensioned and then repaired to the proximal quad in order to provide additional mechanical support. Multiple of fairly extensive stitches were used. The sutures were also that had been placed previously through the patellar fragment and around the patella were meticulously tied. Fluoroscopy showed acceptable positioning of the fragment and normal patellar height. The edge of the allograft was carefully trimmed. The knee was meticulously irrigated with normal saline. Pulse lavage was used. Patient's knee was held in extension. Wound was closed with maryan stitches interrupted Vicryl and skin wiley. A jose francisco dressing was placed. Wound was dressed sterilely. Patient was held in extension and a locked brace was applied Complications: none Condition: stable Disposition: Acute Care Plan for aftercare: case checker brace use, locked at 0 degrees. Partial weight- bearing right lower extremity, home when safe. Full-time walker use. She has problems with instability and a history of multiple falls I anticipate she will require a 2 day stay to adequately mobilize and become safe for hopefully eventually was discharged to home. Would also recommend antibiotics for at least 24 hr postoperatively
--- NOTE | 2018-04-02 16:23 | SUR.PREOP ---
Block start time [1556] . Monitoring initiated and maintained throughout procedure. Oxygen and medications given per anesthesiologist instructions. Patient remained stable throughout procedure, no adverse reactions noted. Block end time [1602 ].
[2018-04-02] MEDS: CEFAZOLIN 2 GM/100 ML FROZ.PIGGY IV ×2 (16:26→23:36)
--- NOTE | 2018-04-02 16:38 | SUR.OPER ---
Supine on padded OR bed, head on pillow, arms secured on padded arm boards at <90 degrees abduction, legs uncrossed, safety belt at abdomen, tape over blanket over left lower leg. Right leg under control of surgeon
[2018-04-02] MEDS: BUPIVACAINE 0.5% W/ EPI (PF) VIAL 30 ML INJ (18:21)
--- NOTE | 2018-04-02 19:42 | PM.PROC.1 ---
Procedures Date/Time Date of procedure: 04/02/18 Time of procedure: 16:02 Nerve Block Time out performed: Yes Local anesthetic used: lidocaine 1% (w/ epi 5mL + 15mL 0.5pivacaine) Location of anesthetic used: femoral nerve Amount of anesthesia used (mL): 20 Nerve blocks: femoral Procedure successful: Yes Patient tolerated procedure: well Complications: none Additional comments: Femoral nerve block for post operative pain management. R/B discussed. Site marked. Consent verified/signed. Standard ASA monitors. NC O2. Chloroprep. Sterile technique. Femoral A/V/N identified Right inguinal crease with US. Lidocaine skin wheal. 100mm x 21g Pajunk needle advanced with in-plane US guidance. Negative aspiration. LA injected lateral to femoral artery. Negative aspiration throughout. No pain, no paresthesia with injection. VSS. Tolerated well. To OR.
[2018-04-02] MEDS: HYDROMORPHONE 2 MG INJ 0.5 MG IV (19:45)
--- NOTE | 2018-04-02 19:45 | P.PCN_ITS ---
Procedures Date/Time Date of procedure: 04/02/18 Time of procedure: 16:02 Nerve Block Time out performed: Yes Local anesthetic used: lidocaine 1% (w/ epi 5mL + 15mL 0.5 opivacaine) Location of anesthetic used: femoral nerve Amount of anesthesia used (mL): 20 Nerve blocks: femoral Procedure successful: Yes Patient tolerated procedure: well Complications: none Additional comments: Femoral nerve block for post operative pain management. R/ B discussed. Site marked. Consent verified/signed. Standard ASA monitors. NC O2. Chloroprep. Sterile technique. Femoral A/V/N identified Right inguinal crease with US. Lidocaine skin wheal. 100mm x 21g Pajunk needle advanced with in-plane US guidance. Negative aspiration. LA injected lateral to femoral artery. Negative aspiration throughout. No pain, no paresthesia with injection. VSS. Tolerated well. To OR.
[2018-04-02] MEDS: HYDROMORPHONE 2 MG INJ 0.25 MG IV (20:05)
[2018-04-02] MEDS: LACTATED RINGERS 1,000 ML 125 ML IV (21:42)
--- NOTE | 2018-04-02 21:42 | PC.NURSE ---
Pt arrived at 2039 from PACU. Drowsy, but arouses easily. SpO2 97% 2L, on continuous pulse for noc. IVF started as per orders. Brace on right leg intact, pulses ++. JESSIE dsg CDI, Pt oriented to room and call system. Call light w/in reach, bed alarm on for pt safety. Continnue w/plan of care.
[2018-04-02] MEDS: ACETAMINOPHEN 325 MG TABLET 975 MG PO (21:55)
[2018-04-02] MEDS: ASPIRIN EC 81 MG TABLET PO (21:55)
[2018-04-02] MEDS: OXYCODONE IR 5 MG TABLET 10 MG PO (21:56)
[2018-04-03] VITALS (8 sets, daily range): BP systolic 112–154; BP diastolic 55–72; PULSE 84–100; RESP 16–18; TEMP 36.7–37.1; O2SAT 98–100
[2018-04-03] MEDS: OXYCODONE IR 5 MG TABLET 10 MG PO ×3 (03:36→10:03)
[2018-04-03] MEDS: ACETAMINOPHEN 325 MG TABLET 975 MG PO (05:58)
[2018-04-03] MEDS: LACTATED RINGERS 1,000 ML 125 ML IV (06:08)
[2018-04-03 06:49] LABS: Hematocrit 29.6 % (36-46); Hemoglobin 10.2 g/dL (12.0-16.0); Mean Corpuscular HGB Conc 34.4 % (30-36); Mean Corpuscular Hemoglobin 29.2 PG (26-34); Mean Corpuscular Volume 84.9 fL (80-100); Platelet Count 451 X10^3/uL (150-400); Red Blood Cell Count 3.49 X10^6/uL (4.0-5.2); Red Cell Distribution Width 14.5 % (11.6-14.8); White Blood Cell Count 9.2 X10^3/uL (4.5-11.0)
--- NOTE | 2018-04-03 08:22 | P.PN_ITS ---
Subjective Date Patient Seen: 04/03/18 Time Patient Seen: 08:18 Interval history: Hospital day 2, postop day 1 following right patellar fracture and patellar tendon repair by Dr. Bellamy. Patient has been resting in bed. She has hinged knee brace on full-time locked at 0? extension. She may do partial weight-bearing on the right leg using a walker full-time. She does have a jose francisco dressing to the right knee. Taking oxycodone 10 mg for pain. She has not had any physical therapy yet. Exam Vital Signs (past 8 hours): - 04/03/18 01:15 04/03/18 05:18 04/03/18 06:16 Temperature 98.4 F 98.0 F Pulse Rate 94 H 84 Respiratory Rate 16 16 Blood Pressure 115/62 126/62 Pulse Oximetry 99 100 100 Oxygen Delivery Method Nasal Cannula Oxygen Flow Rate 0.5 Narrative Exam Narrative: Alert, oriented no acute distress resting in bed. Right leg. Paolo wrap and jose francisco dressing to right knee dry without drainage or inflammation. Knee brace in place locked at 0? extension. Good pulses and sensation to distal leg. Mild edema noted. Objective Labs Result Diagrams: 04/03/18 06:30 Labs: Laboratory Results - last 24 hr 04/03/18 06:30 WBC 9.2 RBC 3.49 L Hgb 10.2 L Hct 29.6 L MCV 84.9 MCH 29.2 MCHC 34.4 RDW 14.5 Plt Count 451 H Assessment & Plan Post-op Postoperative Procedures Operation Date: 04/02/18 16:15 Actual Procedures Side Surgeon p Repair,tendon,patellar fracture,2ndry w/reconstruction using achilles tendon allograft Right Doris A MD Dr. Josesito Bellamy saw patient her this morning. She wants to continue her on another day of [facility]. Will add Vistaril to help with pain and muscle spasms. Patient will work with physical therapy. Anticipate discharge home tomorrow if she is stable.
[2018-04-03] MEDS: CEFAZOLIN 2 GM/100 ML FROZ.PIGGY IV ×2 (08:25→17:03)
[2018-04-03] MEDS: ASPIRIN EC 81 MG TABLET PO ×2 (08:26→21:20)
[2018-04-03] MEDS: hydrOXYzine pamoate 25 MG CAPSULE PO ×2 (08:26→13:47)
[2018-04-03] MEDS: POLYETHYLENE GLYCOL 3350 17 GM POWD.PACK PO (08:26)
[2018-04-03] MEDS: DOCUSATE 100 MG CAPSULE PO ×2 (08:26→21:20)
--- NOTE | 2018-04-03 08:33 | CM.IDA ---
Addendum entered by ELDA Daniel 04/03/18 15:27: According to PT Brianna, pt has HH and would like this resumed. Met w/pt to confirm; she has [facility] and would like to continue w/them upon DC here. LM w/Michelle at [facility] confirming pt here, likely DC home Saturday, need resume orders or new ? Following closely. MAKAYLA Original Note: Addendum entered by ELDA Daniel 04/03/18 09:33: Met w/pt this morning, introduced role. Pt expects to DC home w/no barriers. Pt understands SW team will follow closely in case any DC needs or concerns arise. MAKAYLA Original Note: Discharge Planning/Care Management CM Discharge Assessment Start: 04/03/18 08:15 Freq: Status: Active Protocol: Document 04/03/18 08:15 MAKAYLA (Rec: 04/03/18 08:33 MAKAYLA [id number]) Discharge Planning Assessment Assigned Manager Enterprise ELDA Jamison DPOA/Assigned Designee Name sister Fischer Contact Information [phone] Advance Directives? Yes: polst History Provided By Patient Medical Record Has Patient been admitted in last 30 Yes days? Comment March 19-2018, total right knee by Dr Bellamy Prior Living Arrangements Mobile home Household Members family Type of transporation used prior to Drives own vehicle admit Independent with ADL's Yes Is patient alert and oriented? Yes DME Already Rented / Owned Wheelchair Cane Crutches Patient/Family Preference Home with Home Health Comment Pt DC home w/sister and [facility] on Mar 21. There is a possibility pt will require PT again to assist until pt can make it into outpt appts. Discharge Plan Likely Home with Home Health, PT Pending Transportation Arrangement Sister Referrals Initiated Home Health Review Status In Process
--- NOTE | 2018-04-03 11:07 | PT.IIE ---
Current Diagnoses Displaced transverse fracture of right patella, subsequent encounter for closed fracture with delayed healing (04/02/18) Surgery Performed Operation Date: 04/02/18 16:15 Actual Procedures p Repair,tendon,patellar fracture,2ndry w/reconstruction using achilles tendon allograft(Right) - Doris Bellamy MD Surgical History (Last Reviewed 03/18/18 @ 19:48 by Doris Bellamy MD) Status post bilateral knee replacements (Resolved) Status post hysterectomy (Resolved) Medical History (Last Reviewed 03/18/18 @ 19:48 by Doris Bellamy MD) Hammer toes, bilateral (Acute) Bilateral primary osteoarthritis of knee (Chronic) Physical Therapy Inpatient Evaluation/Re-Eval M1 PT/OT-IP Prior Functional Status Start: 04/03/18 12:05 Freq: NEEDED Status: Active Protocol: Document 04/03/18 11:07 AB (Rec: 04/03/18 12:32 AB [id number]) Medical Review Prior Functional Status Medical History Reviewed Yes Communication able to make needs known Mobility and Gait pt stated that she is modified independent with all mobilities and ambulation using SPC Social History Household Members family Number of Floors (Floors) One Floor Number of Stairs To Enter/Railing? 5 steps to enter with bilateral rails Home Environment Standard Height Toilet Walk in Shower Home Equipment Four Wheel Walker Straight Cane Crutches Raised Toilet Seat w/Armrests Shower Seat with Backrest Hand Held Shower Grab Bars In Shower Employment Status Retired Additional Social History Comment pt lives with her sister has homehealth PT at home M2 PT-IP Current Condition Start: 04/03/18 12:05 Freq: NEEDED Status: Active Protocol: Document 04/03/18 11:07 AB (Rec: 04/03/18 12:32 AB [id number]) Physical Therapy Current Condition Current Condition Evaluation Date 04/03/18 Treatment Diagnosis R knee patellar recontruction and patellar tendon tear repair; diff in walk Onset Date 04/02/18 Precautions Brace R knee hinge brace lock in extension Weight Bearing Status Weight Bearing Status Partial Weight Bearing Allowed Weight Bearing Amount (enter % RLE 50% PWB or #) (%) M3 PT-IP Subjective Start: 04/03/18 12:05 Freq: NEEDED Status: Active Protocol: Document 04/03/18 11:07 AB (Rec: 04/03/18 12:32 AB [id number]) Subjective Physical Therapy Visit Type Type Initial Evaluation Visit Start Time 11:07 Visit Stop Time 12:00 Total Visit Minutes 53 Number of RATE AND COST ANALYST Visits 0 Physical Therapy Visit Comments Patient Comments pt agreeable to get up Therapy Pain Assessment Pain When Pain Assessed At Rest Pain Present Pain Present Pain Reported Location Right Knee Intensity 8 Scale Used Numeric (1 - 10) Pain Management Techniques Apply Cold Re-positioning Timing of Activity with Medications M4 PT-IP Mobility and Gait Start: 04/03/18 12:05 Freq: NEEDED Status: Active Protocol: Document 04/03/18 11:07 AB (Rec: 04/03/18 12:32 AB [id number]) PT-Bed Mobility Assessment Supine to Sit Supine to Sit Moderate Assistance Bedrails Sit to Supine Sit to Supine Maximum Assistance PT-Transfer Assessment Sit to and From Stand Sit to and from Stand Maximum Assistance 1 Person Assistance Use of Upper Extremities Equipment Transfer Assistive Device Gait Belt Front Wheeled Walker Orthotic/Prosthetic Devices or Brace: Yes Transfers Transfer Destination Chair Transfer Technique Stand Step Pivot Transfer Ability Level of Assist Moderate Assistance Maximum Assistance 1 Person Assistance Use of Upper Extremities Comments Mobility Comments pt required mod A for supine to sit and has to use bedrail/ chair to assist. pt required max A for sit to stand from the bed. able to maintain weight bearing restriction of 50% PWB RLE. pt completed pivot transfer to the chair max A and max cues using FWW. completed sit to stand from the chair max A and max cues. completed ~ 3-4 small steps forward and then backwards max A using FWW and max cues. attempted to use bilateral crutches due to pt stating that she prefers the crutches and has used crutches prior to recent surgery. pt unable to take steps with crutches and now prefers the FWW. pt agreed to stay up on chair. call light and table placed within reach. Gait Assessment Gait Gait Assistance Required: Maximum Assistance 1 Person Assist Distance (Feet) 2 Assistive Devices Assistive Device Gait Belt Front Wheeled Walker Orthotic/Prosthetic Devices or Brace: Yes Gait Deviations General Gait Pattern Decreased Stride Length Decreased Feet Clearance Step-to Gait Factors Limiting Gait Function Factors Limiting Gait Function Decreased Activity Tolerance Decreased Strength Limited Range of Motion Pain Poor Balance PT-Balance Assessment Sitting Balance and Reactions Static Sitting Balance Ability Good Dynamic Sitting Balance Ability Good Standing Balance and Reactions Static Standing Balance Ability Poor Dynamic Standing Balance Ability Poor Device Used FWW M5 PT-IP Objective Assessments Start: 04/03/18 12:05 Freq: NEEDED Status: Active Protocol: Document 04/03/18 11:07 AB (Rec: 04/03/18 12:32 AB [id number]) Orientation Orientation/Cognition Level of Alertness Alert Orientation Name Age Birthday Month Date Year Day of Week Place Situation Safety Awareness Understands Safety Issues Memory Description No Deficits Noted Gross Range of Motion Lower Extremity ROM Assessment Right Impaired Impairments R knee lock in extension with hinge knee brace Strength Lower Extremity Strength Assessment Right Impaired Comments Strength Comments RLE 3-/5 Sensation Assessment Sensation Gross Sensation WNL Muscle Tone Muscle Tone WNL Yes M6 PT-IP Treatment Start: 04/03/18 12:05 Freq: NEEDED Status: Active Protocol: Document 04/03/18 11:07 AB (Rec: 04/03/18 12:32 AB [id number]) Physical Therapy Treatment Education Education Provided Precautions Weight Bearing Status Safety Other Treatments Other Treatment Performed informed pt regarding equipement needs: FWW, w/c, shower chair M7 PT-IP Assessment and Plan Start: 04/03/18 12:05 Freq: NEEDED Status: Active Protocol: Document 04/03/18 11:07 AB (Rec: 04/03/18 12:32 AB [id number]) PT Summary Assessment and Plan Potential Rehabilitation Potential Fair Status of Condition at Evaluation Evolving Summary Impairments Pain ROM Strength Balance Coordination Bed Mobility Transfers Gait Activity Tolerance Assessment Summary pt requiriing max A and max cues with mobility and was only able to take ~ 3-4 steps using FWW. pt is PWB of 50% on RLE with knee brace on at 0 deg flexion. recommending SNF rehab at this time but pt does not want to go to one. stated that she has people that can assist her. informed pt regarding concerns with going into the house with 5 steps to enter. pt stated that she has 2-3 people that can help her and even pick her up into the house. will continue to assess to determine safest d/c plan for pt. Goals Bed Mobility Goal Standby Assistance Transfer Goal Standby Assistance Front Wheeled Walker Gait Goal Standby Assistance Front Wheel Walker Gait Distance 50 Other Goals up/down 5 steps bilateral rails mod A Days to Meet Goals 5 Frequency of Treatment Frequency Of Treatment Twice a Day Treatment Plan Physical Therapy Treatment Plan Bed Mobility Training Transfer Training Gait Training Therapeutic Exercise Balance Retraining Post Op Education Discharge Planning Hot or Cold Pack Neuromuscular Re-ed Coordination Retraining Manual Therapy Recommendations To Nursing Amount of Assist Needed 2 Person Assist Discharge Recommendations PT Discharge Recommendations SNF Rehab Equipment Needed for Home Before FWW, w/c Discharge
[2018-04-03] MEDS: HYDROMORPHONE 2 MG TABLET PO (11:27)
--- NOTE | 2018-04-03 13:45 | PT.IPTN ---
Current Diagnoses Displaced transverse fracture of right patella, subsequent encounter for closed fracture with delayed healing (04/02/18) Surgery Performed Operation Date: 04/02/18 16:15 Actual Procedures p Repair,tendon,patellar fracture,2ndry w/reconstruction using achilles tendon allograft(Right) - Doris Bellamy MD Physical Therapy Treatment Note M2 PT-IP Current Condition Start: 04/03/18 12:05 Freq: NEEDED Status: Active Protocol: Document 04/03/18 11:07 AB (Rec: 04/03/18 12:32 AB [id number]) Physical Therapy Current Condition Current Condition Evaluation Date 04/03/18 Treatment Diagnosis R knee patellar recontruction and patellar tendon tear repair; diff in walk Onset Date 04/02/18 Precautions Brace R knee hinge brace lock in extension Weight Bearing Status Weight Bearing Status Partial Weight Bearing Allowed Weight Bearing Amount (enter % RLE 50% PWB or #) (%) M3 PT-IP Subjective Start: 04/03/18 12:05 Freq: NEEDED Status: Active Protocol: Document 04/03/18 13:45 GGD (Rec: 04/03/18 14:44 GGD [email or web address]) Subjective Physical Therapy Visit Type Type Treatment Note Visit Start Time 15:15 Visit Stop Time 15:45 Total Visit Minutes 30 Number of PROOFSHEET CORRECTOR Visits 1 Physical Therapy Visit Comments Patient Comments Pt states she hopes to go home tomorrow. Therapy Pain Assessment Pain When Pain Assessed At Rest Pain Present Pain Present Pain Reported Location Right Knee Intensity 6 Scale Used Numeric (1 - 10) M4 PT-IP Mobility and Gait Start: 04/03/18 12:05 Freq: NEEDED Status: Active Protocol: Document 04/03/18 13:45 GGD (Rec: 04/03/18 14:44 GGD [id number]) PT-Bed Mobility Assessment Sit to Supine Sit to Supine Contact Guard Assistance Scooting Scooting to Edge of Bed Contact Guard Assistance PT-Transfer Assessment Sit to and From Stand Sit to and from Stand Moderate Assistance 1 Person Assistance Use of Upper Extremities Equipment Transfer Assistive Device Gait Belt Front Wheeled Walker Orthotic/Prosthetic Devices or Brace: Yes Transfers Transfer Destination Bed Bedside Commode Transfer Technique Stand Step Pivot Transfer Ability Level of Assist Moderate Assistance Use of Upper Extremities Comments Mobility Comments Pt needed mod a for sit to stand. She was able to to maintain 50% PWB on RLE with transfers. She used leg parts order and stock clerk for bed mobility., M5 PT-IP Objective Assessments Start: 04/03/18 12:05 Freq: NEEDED Status: Active Protocol: Document 04/03/18 11:07 AB (Rec: 04/03/18 12:32 AB [id number]) Orientation Orientation/Cognition Level of Alertness Alert Orientation Name Age Birthday Month Date Year Day of Week Place Situation Safety Awareness Understands Safety Issues Memory Description No Deficits Noted Gross Range of Motion Lower Extremity ROM Assessment Right Impaired Impairments R knee lock in extension with hinge knee brace Strength Lower Extremity Strength Assessment Right Impaired Comments Strength Comments RLE 3-/5 Sensation Assessment Sensation Gross Sensation WNL Muscle Tone Muscle Tone WNL Yes M6 PT-IP Treatment Start: 04/03/18 12:05 Freq: NEEDED Status: Active Protocol: Document 04/03/18 13:45 GGD (Rec: 04/03/18 14:44 GGD [id number]) Physical Therapy Treatment Education Education Provided Precautions Weight Bearing Status Safety M7 PT-IP Assessment and Plan Start: 04/03/18 12:05 Freq: NEEDED Status: Active Protocol: Document 04/03/18 13:45 GGD (Rec: 04/03/18 14:44 GGD [email or web address]) PT Summary Assessment and Plan Summary Assessment Summary Pt needed mod A for sit to stand. She was able to take small steps with PWB, but no functional gait. SHe did improve with bed mobility. Pt wants to go home, but does have 5 stairs to enter home. Treatment Plan Physical Therapy Treatment Plan Bed Mobility Training Transfer Training Gait Training Therapeutic Exercise Balance Retraining Post Op Education Discharge Planning Hot or Cold Pack Neuromuscular Re-ed Coordination Retraining Manual Therapy Other Recommendations and Next Treatment stair training if able. Focus Recommendations To Nursing Amount of Assist Needed 1 Person Assist Discharge Recommendations PT Discharge Recommendations SNF Rehab
[2018-04-03] MEDS: ACETAMINOPHEN 325 MG TABLET 650 MG PO (13:47)
[2018-04-03] MEDS: HYDROMORPHONE 4 MG TABLET PO ×2 (15:48→20:24)
[2018-04-03] MEDS: SODIUM CHLORIDE 0.9% FLUSH 10 ML IV (21:20)
[2018-04-03] MEDS: MAGNESIUM HYDROXIDE 30 ML UDC PO (21:20)
[2018-04-04 01:00] VITALS: BP 130/73; PULSE 91; RESP 18; TEMP 37.3; O2SAT 94
[2018-04-04] MEDS: HYDROMORPHONE 4 MG TABLET PO ×4 (01:02→14:45)
[2018-04-04] MEDS: ACETAMINOPHEN 325 MG TABLET 650 MG PO ×2 (01:03→05:49)
[2018-04-04] MEDS: CEFAZOLIN 2 GM/100 ML FROZ.PIGGY IV ×2 (01:03→09:19)
[2018-04-04] MEDS: hydrOXYzine pamoate 25 MG CAPSULE PO (03:14)
[2018-04-04 05:41] VITALS: BP 124/65; PULSE 87; RESP 18; TEMP 37.2; O2SAT 96
[2018-04-04 08:00] VITALS: BP 137/67; PULSE 86; RESP 16; TEMP 36.4; O2SAT 97
--- NOTE | 2018-04-04 09:15 | PM.DS.1 ---
History of Present Illness Date Patient Seen: 04/04/18 Time Patient Seen: 09:16 Chief complaint: [id number] Narrative: Hospital day 3, postop day 2 following right patella fracture ORIF and patellar tendon repair by Dr. Bellamy. Patient has remained stable postoperatively. Pain controlled with Dilaudid 2-4 mg. Has a knee brace locked at 0? extension. 50% weight-bearing to right leg. She has worked with PT and slowly progressing. Patient desiring to go home today. Discharge Providers Date of admission: 04/02/18 21:15 Primary care physician: Pati Carrera DO Consults: 04/02/18 21:05 Consult to Discharge Planning Routine Comment: Consult to Physical Therapy Evaluate & Treat Comment: AUTOMOBILE MECHANIC BRACE USE Physician Instructions: Evaluate and Treat Consult to Respiratory Therapy Evaluate & Treat Comment: Physician Instructions: Evaluate and treat 04/03/18 08:49 Consult to Physical Therapy Evaluate & Treat Comment: 50%WB right leg in brace with walker. Physician Instructions: Can take brace off for shower keeping leg straight Discharge provider: Slim Herring PA-C Discharge Date: 04/04/18 Summary Discharge Diagnosis: Status post right patella fracture ORIF, patellar tendon repair Hospital Course: Patient brought to hospital on 04/02/2018 for above noted surgery. She remained stable postoperatively. She was on IV Ancef for 2 days postop. Progress slow with the physical therapy doing 50% weight-bearing on the right leg. Hinged knee brace locked at 0?. Patient progressed well on postop day 2 and ready for discharge home. Status at Discharge Cognitive/behavioral status at discharge: Alert, oriented no acute distress. Functional status at discharge: uses cane/walker Overall status at discharge: patient is progressing back to baseline Time Spent with Patient Less than 30 minutes Exam Vital Signs (past 8 hours): - 04/04/18 05:41 Temperature 99.0 F Pulse Rate 87 Respiratory Rate 18 Blood Pressure 124/65 Pulse Oximetry 96 Oxygen Delivery Method Nasal Cannula Oxygen Flow Rate 0 Narrative Exam Narrative: Right leg. Paolo wrap and jose francisco dressing in place without drainage or inflammation. Hinged knee brace in position locked at 0?. No calf pain or swelling. Pulses symmetrical. Objective Labs Result Diagrams: 04/03/18 06:30 Discharge Plan Discharge Plan Patient Disposition: Home Discharge comment: Patient to leave a jose francisco dressing in place. Use knee brace continuously locked in 0 extension. 50% weight-bearing to right leg using walker at all times. Follow up in office in 10 days for dressing change and knee x-ray. 1. Postop total hip arthroplasty 2. Postoperative anemia In 10 days Discharge Med Rec/Prescriptions Prescriptions: New hydromorphone 4 mg Tablet 4 mg PO Q4HR PRN (Reason: Pain, Moderate (4-6)) Qty: 30 RF: 0 Continue acetaminophen 325 mg Tablet 975 mg PO TID Qty: 30 RF: 0 aspirin 81 mg Tablet,Delayed Release (Dr/Ec) 81 mg PO BID Qty: 60 RF: 0 docusate sodium 100 mg Capsule 100 mg PO BID Qty: 30 RF: 0 Discontinued oxycodone 5 mg Tablet 10 mg PO Q3HR PRN (Reason: Pain, Severe (7-10)) Qty: 40 RF: 0 Follow up/Referrals: Pati Carrera DO [Primary Care Provider] - Provider Discharge Instructions Diet: Diet as Tolerated Activity: Ambulate with 50% weight-bearing right leg using the brace museum exhibit technician and walker. Cold/Heat Therapy: Cold pack to knee as needed. Skin/Wound/Dressing Care Report to your healthcare provider any signs of infection, such as:: chills, fever, night sweats, increased pain, unusual drainage and unusual redness Dressing: Keep jose francisco dressing in place until postop visit Visit Report/Discharge Packet Instructions: DI for Constipation, DI for Patella Fracture, How to Use a Knee Immobilizer Discharge Data Primary Care Provider: Pati Carrera Attending Provider: Doris Bellamy Admit Date/Time: 04/02/18 21:15
[2018-04-04] MEDS: DOCUSATE 100 MG CAPSULE PO (09:20)
[2018-04-04] MEDS: SODIUM CHLORIDE 0.9% FLUSH 10 ML IV (09:20)
[2018-04-04] MEDS: ASPIRIN EC 81 MG TABLET PO (09:20)
[2018-04-04] MEDS: POLYETHYLENE GLYCOL 3350 17 GM POWD.PACK PO (09:20)
--- NOTE | 2018-04-04 09:20 | P.DS_ITS ---
History of Present Illness Date Patient Seen: 04/04/18 Time Patient Seen: 09:16 Chief complaint: [id number] Narrative: Hospital day 3, postop day 2 following right patella fracture ORIF and patellar tendon repair by Dr. Bellamy. Patient has remained stable postoperatively. Pain controlled with Dilaudid 2-4 mg. Has a knee brace locked at 0? extension. 50% weight-bearing to right leg. She has worked with PT and slowly progressing. Patient desiring to go home today. Discharge Providers Date of admission: 04/02/18 21:15 Primary care physician: Pati Carrera DO Consults: 04/02/18 21:05 Consult to Discharge Planning Routine Comment: Consult to Physical Therapy Evaluate & Treat Comment: ENGRAVER WOOD BRACE USE Physician Instructions: Evaluate and Treat Consult to Respiratory Therapy Evaluate & Treat Comment: Physician Instructions: Evaluate and treat 04/03/18 08:49 Consult to Physical Therapy Evaluate & Treat Comment: 50%WB right leg in brace with walker. Physician Instructions: Can take brace off for shower keeping leg straight Discharge provider: Slim Herring PA-C Discharge Date: 04/04/18 Summary Discharge Diagnosis: Status post right patella fracture ORIF, patellar tendon repair Hospital Course: Patient brought to hospital on 04/02/2018 for above noted surgery. She remained stable postoperatively. She was on IV Ancef for 2 days postop. Progress slow with the physical therapy doing 50% weight-bearing on the right leg. Hinged knee brace locked at 0?. Patient progressed well on postop day 2 and ready for discharge home. Status at Discharge Cognitive/behavioral status at discharge: Alert, oriented no acute distress. Functional status at discharge: uses cane/walker Overall status at discharge: patient is progressing back to baseline Time Spent with Patient Less than 30 minutes Exam Vital Signs (past 8 hours): - 04/04/18 05:41 Temperature 99.0 F Pulse Rate 87 Respiratory Rate 18 Blood Pressure 124/65 Pulse Oximetry 96 Oxygen Delivery Method Nasal Cannula Oxygen Flow Rate 0 Narrative Exam Narrative: Right leg. Paolo wrap and jose francisco dressing in place without drainage or inflammation. Hinged knee brace in position locked at 0?. No calf pain or swelling. Pulses symmetrical. Objective Labs Result Diagrams: 04/03/18 06:30 Discharge Plan Discharge Plan Patient Disposition: Home Discharge comment: Patient to leave a jose francisco dressing in place. Use knee brace continuously locked in 0 extension. 50% weight-bearing to right leg using walker at all times. Follow up in office in 10 days for dressing change and knee x-ray. 1. Postop total hip arthroplasty 2. Postoperative anemia In 10 days Discharge Med Rec/Prescriptions Prescriptions: New hydromorphone 4 mg Tablet 4 mg PO Q4HR PRN (Reason: Pain, Moderate (4-6)) Qty: 30 RF: 0 Continue acetaminophen 325 mg Tablet 975 mg PO TID Qty: 30 RF: 0 aspirin 81 mg Tablet,Delayed Release (Dr/Ec) 81 mg PO BID Qty: 60 RF: 0 docusate sodium 100 mg Capsule 100 mg PO BID Qty: 30 RF: 0 Discontinued oxycodone 5 mg Tablet 10 mg PO Q3HR PRN (Reason: Pain, Severe (7-10)) Qty: 40 RF: 0 Follow up/Referrals: Pati Carrera DO [Primary Care Provider] - Provider Discharge Instructions Diet: Diet as Tolerated Activity: Ambulate with 50% weight-bearing right leg using the brace time clock inspector and walker. Cold/Heat Therapy: Cold pack to knee as needed. Skin/Wound/Dressing Care Report to your healthcare provider any signs of infection, such as:: chills, fever, night sweats, increased pain, unusual drainage and unusual redness Dressing: Keep jose francisco dressing in place until postop visit Visit Report/Discharge Packet Instructions: DI for Constipation, DI for Patella Fracture, How to Use a Knee Immobilizer Discharge Data Primary Care Provider: Pati Carrera Attending Provider: Doris Bellamy Admit Date/Time: 04/02/18 21:15
--- NOTE | 2018-04-04 10:35 | CM.DPC ---
DCP Discharge Home Per Ortho PA and , pt medically stable to d/c home with Resume today. Per PT, some concerns about pt managing the 5 steps to enter the home safely but pt states she has some strong friends that can help assist her to get into the house. SW met bedside with pt and friend and explained role and pt confirmed that she is agreeable with d/c home today with [facility] and does not have concerns with getting in her home safely and has supports to get inside her house. She states that once inside she does not have plans to leave for a while and has supports to help her with groceries, etc.. Patient has transport home today. SW confirmed with [facility] that they are open to services with the pt and are requesting H&P, Resume Orders, and d/c summ faxed and they will continue working with the pt. [facility] faxed the requested documents to [facility] . Plan: Patient to d/c home via friend POV and friends to assist with stairs into the home and [facility] today. ELDA Molina
--- NOTE | 2018-04-04 12:09 | PT.IPTN ---
Current Diagnoses Displaced transverse fracture of right patella, subsequent encounter for closed fracture with delayed healing (04/02/18) Surgery Performed Operation Date: 04/02/18 16:15 Actual Procedures p Repair,tendon,patellar fracture,2ndry w/reconstruction using achilles tendon allograft(Right) - Doris Bellamy MD Physical Therapy Treatment Note M2 PT-IP Current Condition Start: 04/03/18 12:05 Freq: NEEDED Status: Active Protocol: Document 04/03/18 11:07 AB (Rec: 04/03/18 12:32 AB [id number]) Physical Therapy Current Condition Current Condition Evaluation Date 04/03/18 Treatment Diagnosis R knee patellar recontruction and patellar tendon tear repair; diff in walk Onset Date 04/02/18 Precautions Brace R knee hinge brace lock in extension Weight Bearing Status Weight Bearing Status Partial Weight Bearing Allowed Weight Bearing Amount (enter % RLE 50% PWB or #) (%) M3 PT-IP Subjective Start: 04/03/18 12:05 Freq: NEEDED Status: Active Protocol: Document 04/04/18 10:45 HH (Rec: 04/04/18 12:08 [email or web address]) Subjective Physical Therapy Visit Type Type Treatment Note Visit Start Time 10:45 Visit Stop Time 11:30 Total Visit Minutes 45 Number of TWO NEEDLE MACHINE OPERATOR Visits 0 Physical Therapy Visit Comments Patient Comments Im going home today. And my sister will be able to help me to get through those steps at the entrance. Therapy Pain Assessment Pain When Pain Assessed At Rest Pain Present Pain Present Pain Reported Location Right Knee Intensity 4 Scale Used Numeric (1 - 10) Pain Management Techniques Apply Cold Re-positioning Timing of Activity with Medications M4 PT-IP Mobility and Gait Start: 04/03/18 12:05 Freq: NEEDED Status: Active Protocol: Document 04/04/18 10:45 HH (Rec: 04/04/18 12:08 [email or web address]) PT-Bed Mobility Assessment Supine to Sit Supine to Sit Standby Assistance Bedrails Sit to Supine Sit to Supine Standby Assistance Scooting Scooting to Edge of Bed Standby Assistance PT-Transfer Assessment Sit to and From Stand Sit to and from Stand Standby Assistance Use of Upper Extremities Equipment Transfer Assistive Device Gait Belt Front Wheeled Walker Orthotic/Prosthetic Devices or Brace: Yes Transfers Transfer Destination Bed Bedside Commode Transfer Technique Stand Step Pivot Transfer Ability Level of Assist Standby Assistance Use of Upper Extremities Comments Mobility Comments Pt was able to perform supine to sit by lifting her R LE with the knee brace to EOB independently today. She was able to stand step pivot transfer to bedside commode and sit <> stand multiple times today with SBA. Pt did require min A to slide her R LE out during stand to sit due to her friction socks. Gait Assessment Gait Gait Assistance Required: Contact Guard Assist 1 Person Assist Distance (Feet) 10 Assistive Devices Assistive Device Gait Belt Front Wheeled Walker Orthotic/Prosthetic Devices or Brace: Yes Gait Deviations General Gait Pattern Decreased Stride Length Decreased Feet Clearance Step-to Gait Factors Limiting Gait Function Factors Limiting Gait Function Decreased Activity Tolerance Decreased Strength Limited Range of Motion Pain Poor Balance Comments Gait Comments pt showed good understanding of using forefoot WB and hopping for amb with FWW. Pt did not show LOB and acute distress but she did show SOB for every trials. Stair Climbing Assessment Evaluation Level of Assist On Stairs Contact Guard Assistance 1 Person Assistance Devices Stair Climbing Assistive Devices Left Railing Right Railing Technique/Endurance Stair Climbing Direction Ascend and Descend Stair Climbing Technique Step to Step Number of Steps Climbed 3 Query Text: Stair Climbing Set # Repetitions (reps) 2 Comments Stair Climbing Comments Pt showed good understanding with step to techniques using B UEs and WB on LLE primarily. She was able to maintain forefoot WB during ascending but tend to increase WB on R LE during descending. Pt states her sis and niece will be able to help unweight for stair climbing. PT-Balance Assessment Sitting Balance and Reactions Static Sitting Balance Ability Good Dynamic Sitting Balance Ability Good Standing Balance and Reactions Static Standing Balance Ability Fair Dynamic Standing Balance Ability Fair Device Used FWW M5 PT-IP Objective Assessments Start: 04/03/18 12:05 Freq: NEEDED Status: Active Protocol: Document 04/03/18 11:07 AB (Rec: 04/03/18 12:32 AB [id number]) Orientation Orientation/Cognition Level of Alertness Alert Orientation Name Age Birthday Month Date Year Day of Week Place Situation Safety Awareness Understands Safety Issues Memory Description No Deficits Noted Gross Range of Motion Lower Extremity ROM Assessment Right Impaired Impairments R knee lock in extension with hinge knee brace Strength Lower Extremity Strength Assessment Right Impaired Comments Strength Comments RLE 3-/5 Sensation Assessment Sensation Gross Sensation WNL Muscle Tone Muscle Tone WNL Yes M6 PT-IP Treatment Start: 04/03/18 12:05 Freq: NEEDED Status: Active Protocol: Document 04/03/18 13:45 GGD (Rec: 04/03/18 14:44 GGD [email or web address]) Physical Therapy Treatment Education Education Provided Precautions Weight Bearing Status Safety M7 PT-IP Assessment and Plan Start: 04/03/18 12:05 Freq: NEEDED Status: Active Protocol: Document 04/04/18 10:45 HH (Rec: 04/04/18 12:08 HH [email or web address]) PT Summary Assessment and Plan Summary Assessment Summary Pt demonstrates significant improvements today for overall mobility with SBA/CGA 1p. However, pt did need min A for stand to sit and stair climbing to unweight her R LE. Pt states her sister and niece will be available to assist her for stair climbing. Pt achieved rehab goals today and ready to d/c home and [facility]. Frequency of Treatment Frequency Of Treatment Discharge Recommendations To Nursing Amount of Assist Needed 1 Person Assist Discharge Recommendations PT Discharge Recommendations Home with Assistance Home Health
[2018-04-04 13:00] VITALS: BP 120/68; PULSE 94; RESP 16; TEMP 36.7; O2SAT 99
--- NOTE | 2018-04-04 15:42 | PC.NURSE ---
Discharge: Feels ready to d/c home. Reviewed instructions for JESSIE dressing. Seen by PT and given their final instructions. Seen by MD Bellamy and she also gave instructions. Pt sister is an RN and she will be staying with her for now. Has all her assistive devices and is following her restrictions as far as weight bearing goes. Rx given. D/c instructions reviewed and understood from the nursing perspective. Pt d/c home via auto w/sister.
== END 2018-04-04 14:30 | disposition home or self-care (01) | DRG 501 ==
PROVIDERS: Admitting Provider Orthopaedic Surgery; Family Provider Orthopaedic Surgery; PCP Family Medicine; Visit Provider Orthopaedic Surgery
PROC: 0QSD04Z Reposition Right Patella with Internal Fixation Device, Open Approach (ICD-10-PCS; principal; 2018-04-02 16:15)
DX: S82.001K Unspecified fracture of right patella, subsequent encounter for closed fracture with nonunion (principal); M96.89 Other intraoperative and postprocedural complications and disorders of the musculoskeletal system; Z96.653 Presence of artificial knee joint, bilateral; W19.XXXA Unspecified fall, initial encounter; S76.111D Strain of right quadriceps muscle, fascia and tendon, subsequent encounter
CPT/HCPCS: 36415; 73560; 76000; 85027; 97116; 97162; 97530; J0690; J1100; J1170; J2250; J2405; J2704; J3010; J3370

== ENCOUNTER → 2019-12-16 08:21 | Outpatient (CLI) | payer OTHER, SELFPAY ==
[2018-04-02 21:47] VITALS: BMI 36.2
[2019-12-17 09:21] LABS: COVID19 Sendout Not Detected (Not Detect)
== END ==
PROVIDERS: Family Provider Orthopaedic Surgery; PCP Family Medicine; Visit Provider Physician Assistant
DX: Z03.818 Encounter for observation for suspected exposure to other biological agents ruled out (principal)
CPT/HCPCS: 87635

== ENCOUNTER 2020-10-22 16:14 | Inpatient (IN) | payer OTHER, SELFPAY ==
[2018-04-02 21:47] VITALS: BMI 36.2
[2020-10-22] VITALS (16 sets, daily range): BP systolic 123–154; BP diastolic 71–91; PULSE 64–86; RESP 19–36; TEMP 35.5–36.8; O2SAT 77–95; BMI 31.9; BMI 33.0
--- NOTE | 2020-10-22 16:26 | DI.RAD.S_ITS ---
PROCEDURE: XR CHEST 1V INDICATIONS: shortness of breath TECHNIQUE: One view of the chest was acquired. COMPARISON: None. FINDINGS: Heart size, mediastinum and pulmonary vascular normal there is diffuse chronic interstitial changes present. Minimal patchy atelectasis and infiltrate noted at both lung bases. Pleural spaces clear. Osseous structures demineralized. IMPRESSION: Nonspecific patchy bibasilar pulmonary atelectasis and infiltrate. Underlying chronic interstitial changes. Osteopenia Approved by: Homer Alford M.D. on 10/22/2020 at 16:24
[2020-10-22 16:57] LABS: COVID19 -Nasal RAPID POSITIVE (Negative)
[2020-10-22 17:13] LABS: Add Manual Diff / Slide Review NO; Basophils Absolute Auto 0 /uL (0-100); Basophils Percent Auto 0.3 % (0-2); Eosinophils Absolute Auto 0 /uL (0-450); Hemoglobin 11.6 g/dL (12.0-16.0); Lymphocytes Absolute Auto 400 /uL (1100-4500); Lymphocytes Percent Auto 5.3 % (25-40); Mean Corpuscular Hemoglobin 28.3 PG (26-34); Mean Corpuscular Volume 83.1 fL (80-100); Monocytes Absolute Auto 300 /uL (0-900); Monocytes Percent Auto 4.1 % (3-14); Neutrophils Absolute Auto 7600 /uL (1500-7000); Neutrophils Percent Auto 90.3 % (50-75); Platelet Count 251 X10^3/uL (150-400); Red Cell Distribution Width 14.2 % (11.6-14.8); White Blood Cell Count 8.4 X10^3/uL (4.5-11.0)
[2020-10-22 17:29] LABS: Lactate (Lactic Acid) 1.1 mmol/L (0.7-2.1)
[2020-10-22 17:30] LABS: Alanine Aminotransferase 58 IU/L (<35); Albumin 3.6 g/dL (3.5-5.0); Albumin Globulin Ratio 1.1 (1.0-2.8); Alkaline Phosphatase 108 U/L (38-126); Aspartate Aminotransferase 87 IU/L (14-36); BUN Creatinine Ratio 19.4 (6-22); Bilirubin Total 0.9 mg/dL (0.2-1.3); Blood Urea Nitrogen 25 mg/dL (7-17); Carbon Dioxide 23 mmol/L (22-32); Chloride 98 mmol/L (98-107); Estimated Glomerular Filt Rate 39.8 mL/min (>60); Globulin 3.4 g/dL (1.7-4.1); Glucose 129 mg/dL (80-110); HEMOLYSIS < 15 (0-50); Potassium 3.7 mmol/L (3.4-5.1); Sodium 130 mmol/L (137-145)
--- NOTE | 2020-10-22 17:30 | PC.NURSE ---
Pt noted to be 82% on RA with exertion. Placed on 2L NC, sats now WNL. Provider aware.
--- NOTE | 2020-10-22 18:36 | ED.SOB ---
HPI - SOB/Dyspnea General Chief Complaint: Shortness of Breath/Dyspnea Stated Complaint: hard to breath, shallow breathing, cough, Time Seen by Provider: 10/22/20 17:00 Source: patient Mode of arrival: Family Vehicle Limitations: no limitations History of Present Illness HPI Narrative: Patient is an 80-year-old female who states that she has no past medical history presenting with COVID symptoms. She states that she was in congregation which is were she thinks she was exposed, she was not wearing a mask and someone there was diagnosed with COVID. She started having symptoms 10 days ago. She initially had head cold congestion but has progressed into difficulty breathing. She has never had fever. Today she is having increasing shortness of breath. She is hypoxic on room air which worsens with exertion. Resting on 1-2 L she overall appears comfortable. He denies any chest pain nausea vomiting diarrhea abdominal pain Related Data Home Medications Medication Instructions Recorded Confirmed acetaminophen 325 mg tablet 650 mg PO BEDTIME tab 05/06/19 ibuprofen 200 mg capsule 600 mg PO .AM cap 05/06/19 05/06/19 Allergies Allergy/AdvReac Type Severity Reaction Status Date / Time Sulfa (Sulfonamide AdvReac Nausea Verified 10/22/20 16:25 Antibiotics) Review of Systems Review of Systems Narrative: GENERAL: + body aches see HPI HEENT: Denies sinus pain, ear pain, sore throat, difficulty swallowing, neck pain RESPIRATORY: See HPI CARDIOVASCULAR: Denies chest pain, palpitations, orthopnea, edema GASTROINTESTINAL: Denies nausea, vomiting, abdominal pain, diarrhea, constipation, melena. : Denies dysuria, frequency, incontinence, hematuria, urinary retention, flank pain. MUSCULOSKELETAL: Denies weakness, joint pain, or bony pain SKIN: No rash, no erythema, no pruritus NEUROLOGIC: Denies weakness, dizziness, headache, numbness, change in speech, confusion PSYCHIATRIC: No concerning psychosocial issues. 12 point review of systems is negative except for those stated above and HPI Patient History Medical History Bilateral primary osteoarthritis of knee Establishing care with new doctor, encounter for Hammer toes, bilateral Intermittent diarrhea Restless leg syndrome Skin tag Wears glasses Surgical History Anesthesia Patellar fracture Status post bilateral knee replacements Status post hysterectomy (~1972) Family History Father Cancer Sister Diabetes mellitus Overweight Sister Diabetes mellitus Sister Arthritis Incontinence Other Family history non-contributory Social History household members: family Smoking Status: Never smoker alcohol intake: never Smoking Status: Never smoker alcohol intake frequency: 0-2 drinks per day Substance Use Type: does not use Exam Initial Vital Signs Initial Vital Signs: Vital Signs Temperature 95.9 F L 10/22/20 16:26 Pulse Rate 76 10/22/20 16:26 Respiratory Rate 32 H 10/22/20 16:26 Blood Pressure 133/73 10/22/20 16:26 Pulse Oximetry 90 L 10/22/20 16:26 GENERAL: Alert 80-year-old female and in no acute distress currently on 2 L of oxygen HEENT: Head atraumatic,EOMI, pupils reactive, face symmetric, moist mucous membranes CARDIOVASCULAR: Regular rate and rhythm without murmurs, rubs or gallops. RESPIRATORY: Crackles at bases right greater than left, speaks in full sentences without difficulty ABDOMEN: Soft, nontender. Normoactive bowel sounds all 4 quadrants. No guarding or rebound. EXTREMITIES: Normal range of motion, no clubbing or edema. Neurovascularly intact NEUROLOGICAL: Alert and oriented x4.Normal gait and speech. SKIN: Warm, dry, no laceration, no petechiae, no rashes or lesions. Course Orders Ordered: Acetaminophen (Acetaminophen 325 Mg Tablet) 650 mg PO Q6HR PRN PRN Reason: Fever/Mild Pain (1-3) Hydrocodone Bitart/Acetaminophen (Hydrocodone/Acet 5/325 Tablet) 2 tab PO Q4HR PRN PRN Reason: Pain, Severe (7-10) Al Hydrox/Mg Hydrox/Simethicone (Mag Hydrox/Alum/Simeth 30 Ml Udc) 30 ml PO Q6HR PRN PRN Reason: Dyspepsia Albuterol (Albuterol 2.5 Mg/3 Ml Neb (Adult)) 2.5 mg INH RTQ4HR PRN PRN Reason: Shortness Of Breath Dexamethasone (Dexamethasone 10 Mg/Ml Vial) 6 mg IV DAILY@2000 [facility] Heparin Sodium (Porcine) (Heparin 5,000 Unit/Ml Vial) 5,000 unit SUBCUT BID [facility] Last Admin: 10/22/20 21:20 Dose: 5,000 unit Documented by: CHIN Remdesivir 100 mg/ Sodium (Chloride) 250 mls @ 250 mls/hr IV Q24H [facility] Sodium Chloride (Normal Saline 0.9%) 1,000 mls @ 60 mls/hr IV CONT [facility] Stop: 10/23/20 09:00 Last Admin: 10/22/20 21:31 Dose: 60 mls/hr Documented by: Infusion: 10/22/20 21:31 Dose: 60 mls/hr Documented by: Admin: 10/22/20 21:21 Dose: 60 mls/hr Documented by: CHIN Lorazepam (Lorazepam 0.5 Mg Tablet) 0.5 mg PO Q4HR PRN PRN Reason: Anxiety Magnesium Hydroxide (Magnesium Hydroxide 30 Ml Udc) 30 ml PO DAILY PRN PRN Reason: Constipation Naloxone HCl (Naloxone 0.4 Mg/Ml Vial) 0.2 mg IV Q2MIN PRN PRN Reason: Opiate Reversal Ondansetron HCl (Ondansetron 4 Mg Odt) 4 mg PO Q8HR PRN PRN Reason: Nausea And Vomiting Sennosides (Sennosides 8.6 Mg Tablet) 17.2 mg PO BEDTIME [facility] Last Admin: 10/22/20 21:20 Dose: 17.2 mg Documented by: CHIN Discontinued Medications Albuterol (Albuterol Hfa Mdi 60 Puff/8 Gm Inhaler) 2 puff INH RTQ4HR PRN PRN Reason: Shortness Of Breath Dexamethasone (Dexamethasone 10 Mg/Ml Vial) 6 mg IV NOW ONE Stop: 10/22/20 18:36 Last Admin: 10/22/20 19:37 Dose: 6 mg Documented by: STACI Dexamethasone (Dexamethasone 10 Mg/Ml Vial) 6 mg PO DAILY [facility] Stop: 11/02/20 08:59 Remdesivir 200 mg/ Sodium (Chloride) 250 mls @ 250 mls/hr IV NOW ONE Stop: 10/22/20 18:36 Last Infusion: 10/22/20 20:51 Dose: 0 mls/hr Documented by: Admin: 10/22/20 19:38 Dose: 250 mls/hr Documented by: STACI Remdesivir 200 mg/ Sodium (Chloride) 250 mls @ 250 mls/hr IV NOW ONE Stop: 10/22/20 20:59 Last Admin: 10/22/20 20:05 Dose: Not Given Documented by: STACI Vital Signs Vital signs: Vital Signs - 8 hr 10/22/20 16:26 10/22/20 16:53 10/22/20 17:00 Temperature 95.9 F L Pulse Rate 76 74 69 Respiratory Rate 32 H 32 H 28 H Blood Pressure 133/73 123/71 Pulse Oximetry 90 L 92 90 L 10/22/20 17:18 10/22/20 17:20 10/22/20 17:30 Temperature Pulse Rate 69 67 Respiratory Rate 31 H 32 H Blood Pressure 154/91 H Pulse Oximetry 95 86 L 82 L 10/22/20 18:00 10/22/20 18:30 10/22/20 19:00 Temperature Pulse Rate 64 71 67 Respiratory Rate 26 H 33 H 24 Blood Pressure Pulse Oximetry 95 94 94 10/22/20 19:31 10/22/20 19:32 10/22/20 19:35 Temperature Pulse Rate 86 Respiratory Rate 36 H Blood Pressure Pulse Oximetry 77 L 78 L 92 MDM - SOB/Dyspnea Lab Data Result diagrams: 10/22/20 17:00 10/22/20 17:00 Labs: Lab Results 10/22/20 10/22/20 10/22/20 Range/Units 16:30 17:00 17:00 WBC 8.4 (4.5-11.0) X10^3/uL RBC 4.10 (4.0-5.2) X10^6/uL Hgb 11.6 L (12.0-16.0) g/dL Hct 34.0 L (36-46) % MCV 83.1 (80-100) fL MCH 28.3 (26-34) PG MCHC 34.0 (30-36) % RDW 14.2 (11.6-14.8) % Plt Count 251 (150-400) X10^3/uL Neut % (Auto) 90.3 H (50-75) % Lymph % (Auto) 5.3 L (25-40) % [place] % (Auto) 4.1 (3-14) % Eos % (Auto) 0.0 L (2-4) % Baso % (Auto) 0.3 (0-2) % Neut # (Auto) 7600 H (0518-2959) /uL Lymph # (Auto) 400 L (2125-8498) /uL [place] # (Auto) 300 (0-900) /uL Eos # (Auto) 0 (0-450) /uL Baso # (Auto) 0 (0-100) /uL Sodium 130 L (137-145) mmol/L Potassium 3.7 (3.4-5.1) mmol/L Chloride 98 (98-107) mmol/L Carbon Dioxide 23 (22-32) mmol/L BUN 25 H (7-17) mg/dL Creatinine 1.29 H (0.52-1.04) mg/dL Estimated GFR 39.8 L (>60) mL/min BUN/Creatinine Ratio 19.4 (6-22) Glucose 129 H (80-110) mg/dL Lactate (0.7-2.1) mmol/L Calcium 9.0 (8.4-10.2) mg/dL Magnesium (1.6-2.3) mg/dL Total Bilirubin 0.9 (0.2-1.3) mg/dL AST 87 H (14-36) IU/L ALT 58 H (<35) IU/L Alkaline Phosphatase 108 (38-126) U/L Troponin I (0.01-0.034) ng/mL C-Reactive Protein (<1.0) mg/dL Total Protein 7.0 (6.3-8.2) g/dL Albumin 3.6 (3.5-5.0) g/dL Globulin 3.4 (1.7-4.1) g/dL Albumin/Globulin Ratio 1.1 (1.0-2.8) SARS-CoV-2 (PCR) Positive H (Negative) 10/22/20 10/22/20 10/22/20 Range/Units 17:00 17:00 17:00 WBC (4.5-11.0) X10^3/uL RBC (4.0-5.2) X10^6/uL Hgb (12.0-16.0) g/dL Hct (36-46) % MCV (80-100) fL MCH (26-34) PG MCHC (30-36) % RDW (11.6-14.8) % Plt Count (150-400) X10^3/uL Neut % (Auto) (50-75) % Lymph % (Auto) (25-40) % [place] % (Auto) (3-14) % Eos % (Auto) (2-4) % Baso % (Auto) (0-2) % Neut # (Auto) (9224-9261) /uL Lymph # (Auto) (8303-4014) /uL [place] # (Auto) (0-900) /uL Eos # (Auto) (0-450) /uL Baso # (Auto) (0-100) /uL Sodium (137-145) mmol/L Potassium (3.4-5.1) mmol/L Chloride (98-107) mmol/L Carbon Dioxide (22-32) mmol/L BUN (7-17) mg/dL Creatinine (0.52-1.04) mg/dL Estimated GFR (>60) mL/min BUN/Creatinine Ratio (6-22) Glucose (80-110) mg/dL Lactate 1.1 (0.7-2.1) mmol/L Calcium (8.4-10.2) mg/dL Magnesium 2.3 (1.6-2.3) mg/dL Total Bilirubin (0.2-1.3) mg/dL AST (14-36) IU/L ALT (<35) IU/L Alkaline Phosphatase (38-126) U/L Troponin I (0.01-0.034) ng/mL C-Reactive Protein 20.2 H (<1.0) mg/dL Total Protein (6.3-8.2) g/dL Albumin (3.5-5.0) g/dL Globulin (1.7-4.1) g/dL Albumin/Globulin Ratio (1.0-2.8) SARS-CoV-2 (PCR) (Negative) 10/22/20 Range/Units 17:00 WBC (4.5-11.0) X10^3/uL RBC (4.0-5.2) X10^6/uL Hgb (12.0-16.0) g/dL Hct (36-46) % MCV (80-100) fL MCH (26-34) PG MCHC (30-36) % RDW (11.6-14.8) % Plt Count (150-400) X10^3/uL Neut % (Auto) (50-75) % Lymph % (Auto) (25-40) % [place] % (Auto) (3-14) % Eos % (Auto) (2-4) % Baso % (Auto) (0-2) % Neut # (Auto) (5447-1882) /uL Lymph # (Auto) (3504-5560) /uL [place] # (Auto) (0-900) /uL Eos # (Auto) (0-450) /uL Baso # (Auto) (0-100) /uL Sodium (137-145) mmol/L Potassium (3.4-5.1) mmol/L Chloride (98-107) mmol/L Carbon Dioxide (22-32) mmol/L BUN (7-17) mg/dL Creatinine (0.52-1.04) mg/dL Estimated GFR (>60) mL/min BUN/Creatinine Ratio (6-22) Glucose (80-110) mg/dL Lactate (0.7-2.1) mmol/L Calcium (8.4-10.2) mg/dL Magnesium (1.6-2.3) mg/dL Total Bilirubin (0.2-1.3) mg/dL AST (14-36) IU/L ALT (<35) IU/L Alkaline Phosphatase (38-126) U/L Troponin I < 0.012 (0.01-0.034) ng/mL C-Reactive Protein (<1.0) mg/dL Total Protein (6.3-8.2) g/dL Albumin (3.5-5.0) g/dL Globulin (1.7-4.1) g/dL Albumin/Globulin Ratio (1.0-2.8) SARS-CoV-2 (PCR) (Negative) Imaging Data Chest x-ray: Radiologist's Impression: PROCEDURE: XR CHEST 1V INDICATIONS: shortness of breath TECHNIQUE: One view of the chest was acquired. COMPARISON: None. FINDINGS: Heart size, mediastinum and pulmonary vascular normal there is diffuse chronic interstitial changes present. Minimal patchy atelectasis and infiltrate noted at both lung bases. Pleural spaces clear. Osseous structures demineralized. IMPRESSION: Nonspecific patchy bibasilar pulmonary atelectasis and infiltrate. Underlying chronic interstitial changes. Osteopenia Approved by: Homer Alford M.D. on 10/22/2020 at 16:24 MDM Narrative Medical decision making narrative: Patient is an unvaccinated COVID positive patient hypoxic requiring 1-2 L. She is given dexamethasone and rhythm does severe. She overall appears well on oxygen. She certainly has crackles bilaterally. She does not have any significant risk factors or comorbidities however due to need for oxygenation she will need admission to hospital. Discussed case with hospitalist Joann LEMOS who agrees to admission. Discharge Plan Departure Patient Disposition: Admitted As Inpatient Clinical Impression: COVID-19 Admit Date/Time: 10/22/20 19:41 Admit Provider: Joann Casas
[2020-10-22] MEDS: DEXAMETHASONE 10 MG/ML VIAL 6 MG IV (19:37)
[2020-10-22] MEDS: REMDESIVIR 200 MG in SODIUM CHLORIDE 0.9% 210 ML 250 ML IV (19:38)
--- NOTE | 2020-10-22 20:10 | PM.HP.1 ---
History of Present Illness History of Present Illness Date Patient Seen: 10/22/20 Time Patient Seen: 20:10 Chief complaint: hard to breath, shallow breathing, cough, Narrative: Patient is an 80-year-old female Catrachita Bellamy who presented to the ED today with 10 days of COVID symptoms. She states that she was [place] is were she thinks she was exposed she was not wearing a mask and someone there was diagnosed with COVID. She started having symptoms 10 days ago. She initially had a head cold, congestion, nasal drainage but has progressed into difficulty breathing. Patient denies chest pain, fever, body aches, chills, nausea, vomiting, abdominal pain, numbness, tingling, recent injury, illness, or trauma. Patient states that she has no medical history and takes no medications. Upon admit patient remains on O2 with states she has continued shortness of breath but improved from ED, no other complaints at this time. Patient's vitals were stable on admit with the exception of respiratory, temp 95.9?, BP 154/91, HR 67, slightly tachypneic RR 24, O2 saturation 78% on room air. Patient placed on O2, O2 saturation 93% on 2 L. Patient's CBC demonstrated mild anemia with no white count HGB 11.6, HCT 34, neutrophils 7600. Patient has mild hyponatremia Na 130, with LAURIE BUN 25, creatinine 1.29, GFR 39.8, glucose 129, lactate is negative, sofa score 3, creatinine clearance calculated 48. Patient's chest x-ray demonstrates nonspecific patchy bibasilar pulmonary atelectasis and infiltrates with underlying chronic interstitial changes. Patient admitted for acute respiratory failure with hypoxia due to COVID pneumonia, sepsis with LAURIE and mild hyponatremia. Patient History Medical History Bilateral primary osteoarthritis of knee Establishing care with new doctor, encounter for Hammer toes, bilateral Intermittent diarrhea Restless leg syndrome Skin tag Wears glasses Surgical History Anesthesia Patellar fracture Status post bilateral knee replacements Status post hysterectomy (~1972) Family & Social History Family History Father Cancer Sister Diabetes mellitus Overweight Sister Diabetes mellitus Sister Arthritis Incontinence Other Family history non-contributory Social History: household members family Safety & Behavioral: Feels Safe in Current Yes Environment Been Physically Hurt or No Threatened By a Person Tobacco & Substance use: Smoking Status Never smoker alcohol intake never alcohol intake frequency 0-2 drinks per day Substance Use Type does not use Meds Home Medications and Allergies Home Medications Medication Instructions Recorded Confirmed Type acetaminophen 325 mg tablet 650 mg PO BEDTIME tab 05/06/19 History ibuprofen 200 mg capsule 600 mg PO .AM cap 05/06/19 05/06/19 History Allergies Allergy/AdvReac Type Severity Reaction Status Date / Time Sulfa (Sulfonamide AdvReac Nausea Verified 10/22/20 16:25 Antibiotics) Review of Systems Review of Systems Narrative: All 12 point systems reviewed with the patient and are negative except otherwise documented. Exam Vital Signs (past 8 hours): - 10/22/20 16:26 10/22/20 16:53 10/22/20 17:00 Temperature 95.9 F L Pulse Rate 76 74 69 Respiratory Rate 32 H 32 H 28 H Blood Pressure 133/73 123/71 Pulse Oximetry 90 L 92 90 L 10/22/20 17:18 10/22/20 17:20 10/22/20 17:30 Temperature Pulse Rate 69 67 Respiratory Rate 31 H 32 H Blood Pressure 154/91 H Pulse Oximetry 95 86 L 82 L 10/22/20 18:00 10/22/20 18:30 10/22/20 19:00 Temperature Pulse Rate 64 71 67 Respiratory Rate 26 H 33 H 24 Blood Pressure Pulse Oximetry 95 94 94 10/22/20 19:32 Temperature Pulse Rate Respiratory Rate Blood Pressure Pulse Oximetry 78 L Oxygen Delivery Method Room Air Narrative Exam Narrative: General: Patient is a well-developed, well-nourished in no distress at this time. HEENT: Normocephalic, atraumatic, extraocular muscles intact, oral pharynx is clear and mucous membranes are dry. Neck is supple and symmetric, trachea is midline, no adenopathy, no thyroid enlargement, nontender, no masses palpated. Negative for JVD Chest: Normal AP diameter and contour without kyphoscoliosis, no nasal flaring, retractions, or tachypneic labored Lungs: Auscultation of all lung rodriguez: occansional mild bibasilar crackles right greater than left Cardio: S1 & S2 with regular rate and rhythm without murmur, rubs, or gallops, no carotid bruit, no cardiac pulsations present. Abdomen: Soft nontender, negative for organomegaly, or masses. Bowel sounds are present in all 4 quadrants without guarding or rebound, no CVA tenderness. Musculoskeletal: Muscle strength and tone are equal within normal limits, no deformity, crepitus, effusions, cyanosis, clubbing or edema present. Full range of motion intact radial and pedal pulses are normal. Skin: Warm dry and intact without rashes, ulcerations or petechiae. Neuro: Alert and orientated x3, strength is +5/5 in all extremities, sensation to touch intact, no gross deficits noted of cranial nerves. Psych: Patient has a well-kept appearance, appropriate affect, mental status attitude thought context and judgment are appropriate for age. Objective Labs Result Diagrams: 10/22/20 17:00 10/22/20 17:00 Labs: Laboratory Results - last 24 hr 10/22/20 10/22/20 10/22/20 16:30 17:00 17:00 WBC 8.4 RBC 4.10 Hgb 11.6 L Hct 34.0 L MCV 83.1 MCH 28.3 MCHC 34.0 RDW 14.2 Plt Count 251 Neut % (Auto) 90.3 H Lymph % (Auto) 5.3 L [place] % (Auto) 4.1 Eos % (Auto) 0.0 L Baso % (Auto) 0.3 Neut # (Auto) 7600 H Lymph # (Auto) 400 L [place] # (Auto) 300 Eos # (Auto) 0 Baso # (Auto) 0 Sodium 130 L Potassium 3.7 Chloride 98 Carbon Dioxide 23 BUN 25 H Creatinine 1.29 H Estimated GFR 39.8 L BUN/Creatinine Ratio 19.4 Glucose 129 H Lactate Calcium 9.0 Total Bilirubin 0.9 AST 87 H ALT 58 H Alkaline Phosphatase 108 Total Protein 7.0 Albumin 3.6 Globulin 3.4 Albumin/Globulin Ratio 1.1 SARS-CoV-2 (PCR) Positive H 10/22/20 17:00 WBC RBC Hgb Hct MCV MCH MCHC RDW Plt Count Neut % (Auto) Lymph % (Auto) [place] % (Auto) Eos % (Auto) Baso % (Auto) Neut # (Auto) Lymph # (Auto) [place] # (Auto) Eos # (Auto) Baso # (Auto) Sodium Potassium Chloride Carbon Dioxide BUN Creatinine Estimated GFR BUN/Creatinine Ratio Glucose Lactate 1.1 Calcium Total Bilirubin AST ALT Alkaline Phosphatase Total Protein Albumin Globulin Albumin/Globulin Ratio SARS-CoV-2 (PCR) Assessment & Plan Assessment & Plan narrative: Patient is an 80-year-old female with no medical history, and takes no medications, unvaccinated and was exposed to positive COVID at her [place]. Patient is admitted with acute respiratory failure with hypoxia due to COVID pneumonia, Sepsis with LAURIE and mild hyponatremia. 1. Acute respiratory failure with hypoxia, secondary to COVID pneumonia, Sepsis, acute, present on admission - temp 95.9?, BP 154/91, HR 67, RR 24, O2 saturation 78% on room air. 94% on 2L/NC, no white count HGB 11.6, HCT 34, neutrophils# 7600. Chest x-ray demonstrates nonspecific patchy bibasilar pulmonary atelectasis and infiltrates with underlying chronic interstitial changes. -patient to be monitored on tele medicine, vital signs q.4 hours, intake and output monitored Q shift, weight measure daily, diet: Regular -Supplemental NC -maintain SaO2 >92-88%, check peak flow expiratory flow q.day 1-2 days. - Resp Consult-O2 saturation drops below 90%, Max 6L/Min NC -medications ordered: Remdesivir 100 mg p.o. q.day & dexamethasone 6 mg QD x 10 days or until D/C per coronavirus infectious disease is modify February 2020 treatment guidelines per up-to-date. Patient to start Baricitinib 4mg QD if patient placed on High Flow 02. [place] frequent PRONING, provided pain medication to ease discomfort for prolonged proning. -On admit SOFA score of 3, Optical Instrument Assembly Supervisor Cl: 48, dimer 1009-ordered CTA r/o PE -albuterol HFA inhaler 2 puffs every 4-6 hours as needed cough or shortness of breath, LMW heparin 5000 units q.day -labs ordered PT/PTT every other day, troponin 48 hour repeat, D-dimer and lactate repeat in a.m., CBC and CMP daily, sputum culture . -avoiding nebulizer aerosol treatments, if signs and symptoms are worsening order chest x-ray and echo -monitor patient for acute AR, ischemic stroke, PE, DVT, venous thrombosis, hyperglycemia an increased risk of bacterial infections, fungal and strongyloides -consults ordered: respiratory therapy. -if liver enzymes begin to increase stop remdesivir. Upon admit AST 87, ALT 58, alk-phos and bilirubin WNL -prevention vaccine: Recommend yearly flu, shingles, pneumonia, COVID vaccines. 2. Acute kidney injury with mild hyponatremia, acute, present on admission -Na 130, with LAURIE BUN 25, creatinine 1.29, GFR 39.8, glucose 129, lactate is negative, sofa score 3, creatinine clearance calculated 48 -bed rest/ bed side commode, if patient has sustained O2 sats below 80 with activity, will consider Barillas placement, strict I&O, daily weights, call for urinary output less than 350cc/per 8hr shift -mildly hydration normal saline at 60 cc/hour -monitor chemistry daily Code status:DNR Surrogate decision maker: Deanne Layton Sister COVID PCR: Positive COVID vaccine: Unvaccinated VTE/DVT prophylaxis: LMW heparin 5000 units BID, and SCDs Estimated length of stay: Greater than 2 midnights I have utilized all available immediate resources to obtain, update, or review the patient's current medications.. I confirmed that the patient's advanced care plan is present, Code status is documented and/or surrogate decision maker is listed in the patient's medical record. Scores GCS Condon coma scale eye opening: Spontaneous Stella coma scale verbal response: Orientated Condon coma scale motor response: Obey commands Condon coma scale total score: 15 SOFA PaO2/FIO2: < 300 mmHg Platelets: >= 150 Bilirubin: < 1.2 mg/dL Hypotension: MAP >= 70 mmHg Condon Coma Scale: 15 Renal: Creatinine 1.2-1.9 mg/dL SOFA Score: 3 Wells' Criteria for PE Clinical signs and symptoms of DVT: No PE is #1 Dx or equally likely: No Heart rate > 100: No Immobilization at least 3 days or surg in previous 4 weeks: Yes History of PE or DVT: No Hemoptysis: No Malignancy w/Treatment within 6 months or palliative: No Wells' PE Score total: 1.5
[2020-10-22 20:32] LABS: Magnesium 2.3 mg/dL (1.6-2.3)
[2020-10-22 20:51] LABS: Troponin I < 0.012 ng/mL (0.01-0.034)
[2020-10-22 20:52] LABS: C-Reactive Protein Quant 20.2 mg/dL (<1.0)
[2020-10-22 21:19] LABS: D Dimer 1009 ng/mL (<230)
[2020-10-22] MEDS: HEPARIN 5,000 UNIT/ML VIAL 5000 UNIT SUBCUT (21:20)
[2020-10-22] MEDS: SODIUM CHLORIDE 0.9% 1,000 ML 60 ML IV ×2 (21:21→21:31)
[2020-10-22 21:45] LABS: Fractionated Inspired Oxygen 28; HCO3 ABG 23 mmol/L (22-26); Oxygen Saturation ABG 94 % (95-100); PCO2 ABG 34.4 mmHg (35-45); PO2 ABG 68 mmHg (80-100); TCO2 ABG 24 mmol/L (21-31); pH ABG 7.44 (7.35-7.45)
--- NOTE | 2020-10-22 22:41 | DI.CT.S_ITS ---
PROCEDURE: CT ANGIO CHEST PE PROTOCOL INDICATIONS: R/O PE COVID +, elevated dimer TECHNIQUE: After the administration of intravenous contrast, 2 mm thick sections acquired from the pulmonary apices to the posterior costophrenic angles. 3-dimensional maximum intensity projection (MIP) coronal and sagittal reformats were then acquired through the thorax. For radiation dose reduction, the following was used: automated exposure control, adjustment of mA and/or kV according to patient size. COMPARISON: None. FINDINGS: Image quality: Excellent. Pulmonary arteries: Pulmonary arteries are normal in size, and demonstrate no intraluminal filling defects to suggest central pulmonary embolism. Lungs and pleura: Extensive bilateral patchy ground-glass pulmonary infiltrates are predominantly peripheral, consistent a viral pneumonia. Mediastinum: Heart size is normal, without pericardial effusion. Prominent mediastinal adenopathy measures up to 1 cm in short axis. Thoracic aorta is normal in caliber and enhancement. Moderate hiatal hernia noted. Bones and chest wall: No suspicious bony lesions. Ribs and thoracic spine appear intact throughout. Thyroid gland unremarkable. No axillary or supraclavicular adenopathy. Abdomen: Visualized upper abdominal solid organs appear normal in the early arterial phase of enhancement. IMPRESSION: 1. No evidence of pulmonary embolism, aortic dissection or aneurysm. 2. Patchy bilateral peripheral pulmonary ground-glass densities consistent with viral or communicate higher pneumonia. 3. Reactive appearing mediastinal adenopathy. 4. Moderate to large hiatal hernia Approved by: Homer Alford M.D. on 10/23/2020 at 6:30
--- NOTE | 2020-10-22 23:20 | PC.NURSE ---
Admit/Evening Shift Note- Patient arrived to room via stretcher from ER. Patient alert and oriented and able to make needs known to staff. Admit nancy mdone, physical assessment done, meds reviewed, and skin check completed. Patient oriented to bed and bed controls, room, bathroom, lights, phone, menu, and call delvalle/tv remote. safety measures in place. Patient agrees to call for assistance. call delvalle and phone within reach. will continue to monitor.
[2020-10-23] VITALS (13 sets, daily range): BP systolic 110–138; BP diastolic 54–79; PULSE 65–98; RESP 16–20; TEMP 36.1–36.6; O2SAT 87–97
[2020-10-23] MEDS: ACETAMINOPHEN 325 MG TABLET 650 MG PO ×2 (04:21→22:38)
[2020-10-23 05:36] LABS: Add Manual Diff / Slide Review NO; Basophils Absolute Auto 0 /uL (0-100); Basophils Percent Auto 0.3 % (0-2); Eosinophils Absolute Auto 0 /uL (0-450); Hematocrit 34.6 % (36-46); Hemoglobin 11.7 g/dL (12.0-16.0); Lymphocytes Absolute Auto 400 /uL (1100-4500); Lymphocytes Percent Auto 6.6 % (25-40); Mean Corpuscular HGB Conc 33.7 % (30-36); Mean Corpuscular Hemoglobin 28.1 PG (26-34); Mean Corpuscular Volume 83.3 fL (80-100); Monocytes Absolute Auto 100 /uL (0-900); Monocytes Percent Auto 2.7 % (3-14); Neutrophils Absolute Auto 4900 /uL (1500-7000); Neutrophils Percent Auto 90.4 % (50-75); Platelet Count 283 X10^3/uL (150-400); Red Blood Cell Count 4.16 X10^6/uL (4.0-5.2); Red Cell Distribution Width 14.2 % (11.6-14.8); White Blood Cell Count 5.4 X10^3/uL (4.5-11.0)
[2020-10-23 05:42] LABS: INR 1.3 (0.9-1.3); Prothrombin Time 14.3 SECONDS (10.1-12.7)
[2020-10-23 05:50] LABS: Alanine Aminotransferase 54 IU/L (<35); Albumin 3.4 g/dL (3.5-5.0); Albumin Globulin Ratio 1.1 (1.0-2.8); Alkaline Phosphatase 105 U/L (38-126); Aspartate Aminotransferase 71 IU/L (14-36); BUN Creatinine Ratio 22.9 (6-22); Bilirubin Total 0.6 mg/dL (0.2-1.3); Blood Urea Nitrogen 22 mg/dL (7-17); Calcium 8.7 mg/dL (8.4-10.2); Carbon Dioxide 24 mmol/L (22-32); Chloride 104 mmol/L (98-107); Estimated Glomerular Filt Rate 55.9 mL/min (>60); Globulin 3.2 g/dL (1.7-4.1); Glucose 137 mg/dL (80-110); HEMOLYSIS < 15 (0-50); Potassium 3.8 mmol/L (3.4-5.1); Sodium 136 mmol/L (137-145); Total Protein 6.6 g/dL (6.3-8.2)
[2020-10-23 05:57] LABS: NT-proBNP (BNP-Adult 18+) 597 pg/mL (<450)
[2020-10-23 06:05] LABS: Procalcitonin 0.42 ng/mL (<0.5)
--- NOTE | 2020-10-23 07:39 | PM.PN.1 ---
Subjective Subjective Date Patient Seen: 10/23/20 Interval history: She is seen today to follow-up her COVID pneumonia and hypoxia. Her oxygen need continues to fluctuate between 2 and 4 L nasal cannula. She says she is feeling better. She mentions that her sister, who she lives with is also ill with COVID but had the vaccination and so has not needed to be hospitalized. Her CRP was 20 yesterday with an AST that has dropped from 87-71 and ALT that has dropped from 58 down to 54. The INR was 1.3 and the D-dimer was 1009. The glucose is 137. Exam Vital Signs (past 8 hours): - 10/22/20 23:58 10/23/20 00:38 10/23/20 03:00 Temperature 98 F Pulse Rate 71 Respiratory Rate 18 Blood Pressure 138/74 Pulse Oximetry 93 93 92 10/23/20 04:51 Temperature 97.2 F L Pulse Rate 73 Respiratory Rate 18 Blood Pressure 121/63 Pulse Oximetry 91 Oxygen Delivery Method Nasal Cannula Oxygen Flow Rate 2 Narrative Exam Narrative: She is alert and oriented x3, in no apparent distress. She is in good spirits Heart is regular rate and rhythm without murmur Lungs are clear to auscultation bilaterally Extremities have no ankle edema Objective Labs Result Diagrams: 10/23/20 05:10 10/23/20 05:10 Labs: Laboratory Results - last 24 hr 10/22/20 10/22/20 10/22/20 16:30 17:00 17:00 WBC 8.4 RBC 4.10 Hgb 11.6 L Hct 34.0 L MCV 83.1 MCH 28.3 MCHC 34.0 RDW 14.2 Plt Count 251 Neut % (Auto) 90.3 H Lymph % (Auto) 5.3 L [place] % (Auto) 4.1 Eos % (Auto) 0.0 L Baso % (Auto) 0.3 Neut # (Auto) 7600 H Lymph # (Auto) 400 L [place] # (Auto) 300 Eos # (Auto) 0 Baso # (Auto) 0 PT INR D-Dimer ABG pH ABG pCO2 ABG pO2 ABG HCO3 ABG Total CO2 ABG O2 Saturation ABG Base Excess FiO2 Sodium 130 L Potassium 3.7 Chloride 98 Carbon Dioxide 23 BUN 25 H Creatinine 1.29 H Estimated GFR 39.8 L BUN/Creatinine Ratio 19.4 Glucose 129 H Lactate Calcium 9.0 Magnesium Total Bilirubin 0.9 AST 87 H ALT 58 H Alkaline Phosphatase 108 Troponin I C-Reactive Protein NT-Pro-B Natriuret Pep Total Protein 7.0 Albumin 3.6 Globulin 3.4 Albumin/Globulin Ratio 1.1 Procalcitonin SARS-CoV-2 (PCR) Positive H 10/22/20 10/22/20 10/22/20 17:00 17:00 17:00 WBC RBC Hgb Hct MCV MCH MCHC RDW Plt Count Neut % (Auto) Lymph % (Auto) [place] % (Auto) Eos % (Auto) Baso % (Auto) Neut # (Auto) Lymph # (Auto) [place] # (Auto) Eos # (Auto) Baso # (Auto) PT INR D-Dimer ABG pH ABG pCO2 ABG pO2 ABG HCO3 ABG Total CO2 ABG O2 Saturation ABG Base Excess FiO2 Sodium Potassium Chloride Carbon Dioxide BUN Creatinine Estimated GFR BUN/Creatinine Ratio Glucose Lactate 1.1 Calcium Magnesium 2.3 Total Bilirubin AST ALT Alkaline Phosphatase Troponin I C-Reactive Protein 20.2 H NT-Pro-B Natriuret Pep Total Protein Albumin Globulin Albumin/Globulin Ratio Procalcitonin SARS-CoV-2 (PCR) 10/22/20 10/22/20 10/22/20 17:00 20:50 21:26 WBC RBC Hgb Hct MCV MCH MCHC RDW Plt Count Neut % (Auto) Lymph % (Auto) [place] % (Auto) Eos % (Auto) Baso % (Auto) Neut # (Auto) Lymph # (Auto) [place] # (Auto) Eos # (Auto) Baso # (Auto) PT INR D-Dimer 1009 H ABG pH 7.44 ABG pCO2 34.4 L ABG pO2 68 L ABG HCO3 23 ABG Total CO2 24 ABG O2 Saturation 94 L ABG Base Excess -1.0 FiO2 28 Sodium Potassium Chloride Carbon Dioxide BUN Creatinine Estimated GFR BUN/Creatinine Ratio Glucose Lactate Calcium Magnesium Total Bilirubin AST ALT Alkaline Phosphatase Troponin I < 0.012 C-Reactive Protein NT-Pro-B Natriuret Pep Total Protein Albumin Globulin Albumin/Globulin Ratio Procalcitonin SARS-CoV-2 (PCR) 10/23/20 10/23/20 10/23/20 05:10 05:10 05:10 WBC 5.4 RBC 4.16 Hgb 11.7 L Hct 34.6 L MCV 83.3 MCH 28.1 MCHC 33.7 RDW 14.2 Plt Count 283 Neut % (Auto) 90.4 H Lymph % (Auto) 6.6 L [place] % (Auto) 2.7 L Eos % (Auto) 0.0 L Baso % (Auto) 0.3 Neut # (Auto) 4900 Lymph # (Auto) 400 L [place] # (Auto) 100 Eos # (Auto) 0 Baso # (Auto) 0 PT 14.3 H INR 1.3 D-Dimer ABG pH ABG pCO2 ABG pO2 ABG HCO3 ABG Total CO2 ABG O2 Saturation ABG Base Excess FiO2 Sodium 136 L Potassium 3.8 Chloride 104 Carbon Dioxide 24 BUN 22 H Creatinine 0.96 Estimated GFR 55.9 L BUN/Creatinine Ratio 22.9 H Glucose 137 H Lactate Calcium 8.7 Magnesium Total Bilirubin 0.6 AST 71 H ALT 54 H Alkaline Phosphatase 105 Troponin I C-Reactive Protein NT-Pro-B Natriuret Pep 597 H Total Protein 6.6 Albumin 3.4 L Globulin 3.2 Albumin/Globulin Ratio 1.1 Procalcitonin SARS-CoV-2 (PCR) 10/23/20 05:10 WBC RBC Hgb Hct MCV MCH MCHC RDW Plt Count Neut % (Auto) Lymph % (Auto) [place] % (Auto) Eos % (Auto) Baso % (Auto) Neut # (Auto) Lymph # (Auto) [place] # (Auto) Eos # (Auto) Baso # (Auto) PT INR D-Dimer ABG pH ABG pCO2 ABG pO2 ABG HCO3 ABG Total CO2 ABG O2 Saturation ABG Base Excess FiO2 Sodium Potassium Chloride Carbon Dioxide BUN Creatinine Estimated GFR BUN/Creatinine Ratio Glucose Lactate Calcium Magnesium Total Bilirubin AST ALT Alkaline Phosphatase Troponin I C-Reactive Protein NT-Pro-B Natriuret Pep Total Protein Albumin Globulin Albumin/Globulin Ratio Procalcitonin 0.42 SARS-CoV-2 (PCR) [facility] Medical History Bilateral primary osteoarthritis of knee Establishing care with new doctor, encounter for Hammer toes, bilateral Intermittent diarrhea Restless leg syndrome Skin tag Wears glasses Surgical History Anesthesia Patellar fracture Status post bilateral knee replacements Status post hysterectomy (~1972) Family History Father Cancer Sister Diabetes mellitus Overweight Sister Diabetes mellitus Sister Arthritis Incontinence Other Family history non-contributory Social History household members: family Smoking Status: Never smoker alcohol intake: never Assessment & Plan Assessment & Plan narrative: Patient is an 80-year-old female with no medical history, and takes no medications, unvaccinated and was exposed to positive COVID at her [facility]. Patient was admitted with acute respiratory failure with hypoxia due to COVID pneumonia, Sepsis with LAURIE and mild hyponatremia. 1. Acute respiratory failure with hypoxia, secondary to COVID pneumonia, Sepsis, acute, present on admission - Chest x-ray demonstrates nonspecific patchy bibasilar pulmonary atelectasis and infiltrates with underlying chronic interstitial changes. -Remdesivir 100 mg p.o. q.day & dexamethasone 6 mg QD x 10 days or until D/C. Patient to start Baricitinib 4mg QD if patient placed on High Flow 02. Encourage frequent PRONING, provided pain medication to ease discomfort for prolonged proning. -On admit SOFA score of 3, Thread Separator Cl: 48, dimer 1009 - but CTA on admission is negative for PE -albuterol HFA inhaler and heparin 5000 units q 12 h -monitor patient for acute MO, ischemic stroke, PE, DVT, venous thrombosis, hyperglycemia an increased risk of bacterial infections, fungal and strongyloides -consults ordered: respiratory therapy. -if liver enzymes begin to increase stop remdesivir. Upon admit AST 87, ALT 58, alk-phos and bilirubin WNL 2. Acute kidney injury with mild hyponatremia, acute, present on admission -Na 130, with LAURIE BUN 25, creatinine 1.29, GFR 39.8, glucose 129, lactate is negative, sofa score 3, creatinine clearance calculated 48 -bed rest/ bed side commode, if patient has sustained O2 sats below 80 with activity, will consider Barillas placement, strict I&O, daily weights, call for urinary output less than 350cc/per 8hr shift -normal saline at 60 cc/hour -monitor chemistry daily Code status:DNR Surrogate decision maker: Deanne Layton Sister COVID PCR: Positive COVID vaccine: Unvaccinated VTE/DVT prophylaxis: LMW heparin 5000 units BID, and SCDs . Quality VTE Deep Vein Thrombosis/Pulmonary Embolism Present on Admission: No
[2020-10-23] MEDS: HEPARIN 5,000 UNIT/ML VIAL 5000 UNIT SUBCUT ×2 (09:02→20:40)
--- NOTE | 2020-10-23 12:06 | CM.DANOTE ---
DCP/Brief Assessment: Reviewed chart. Patient is a 80yr old female admitted to [facility] with [facility]. PCP listed is Dr. Dowd. Primary payor is 1)[facility] [employer]. Patient currently COVID positive resting comfortably in bed with minimal 02. At this time it is to early to determine d/c planning needs. Anticipate that patient would benefit from home health (if patient remains stable). Per notes patient has used [facility] in the past (Mar 2020)? CM team will need to confirm with patient prior to d/c. P: CM team to follow closely and call patient in room prior to discharge. MEGAN Discharge Planning/Care Management CM Discharge Assessment Start: 10/23/20 11:57 Freq: Status: Active Protocol: Document 10/23/20 11:58 [facility] (Rec: 10/23/20 12:06 [facility] [id number]) Discharge Planning Assessment Assigned District Agent ELDA Galvan Contact Information Kiki Ecsalantecliff (sister) # [phone] Advance Directives? Yes: polst Advance Directives on File Yes History Provided By Medical Record Prior Living Arrangements House Household Members family Independent with ADL's Yes: Per notes patient is I at baseline Is patient alert and oriented? Yes Patient/Family Preference Home with Home Health Comment Pt DC home w/sister and [facility] on Mar 21. There is a possibility pt will require PT again to assist until pt can make it to outpatient appointments. Discharge Plan Home with Home Health Transportation Arrangement Sister Referrals Initiated Home Health Review Status In Process Next Review Type Continued Stay Review
--- NOTE | 2020-10-23 13:39 | PC.NURSE ---
Addendum entered by Ann Alston R.N. 10/23/20 14:37: Pt had to use bsc at 1410. Up to commode with out problems although she did feel fatigued. However on returning to bed, the exertion of getting into the bed caused her to feel very sob, Her sats dropped to 70% on the 4L NC and she was audibly wheezing, using her accessory muscles to breath, rr 36-40. Coached pt to do slow breathing, purse lip breathing, hob up, positioning. Sats returned to 92% on 4L after 10 mins. Pt is surprised at how quickly she can become fatigued and sob. Original Note: Resp: O2 sat down to 88-90% on 2L. Deep breathing and pt is as high as 94% but then immed drops back down. O2 increased to 4L NC and sats remain at about 92%. With deep breathing will get to 96-97%. Then will drop back down to 92-93% when she is resting. Does have some course sounds in the posterior bases, has a freq loose cough this am. RT and MD Guzman both notified of pt's increasing O2 requirements. This afternoon pt has had better oxygenation. On 4L she is now as high as 98% at times. She reports she is coughing less. She is feeling a little better.
[2020-10-23] MEDS: REMDESIVIR 100 MG in SODIUM CHLORIDE 0.9% 230 ML 250 ML IV (20:40)
[2020-10-23] MEDS: DEXAMETHASONE 10 MG/ML VIAL 6 MG IV (20:40)
[2020-10-24] VITALS (14 sets, daily range): BP systolic 111–126; BP diastolic 65–72; PULSE 62–79; RESP 16–26; TEMP 36.3–36.8; O2SAT 90–98
[2020-10-24 05:00] LABS: Add Manual Diff / Slide Review NO; Basophils Absolute Auto 100 /uL (0-100); Basophils Percent Auto 0.6 % (0-2); Eosinophils Absolute Auto 0 /uL (0-450); Hematocrit 37.3 % (36-46); Hemoglobin 12.3 g/dL (12.0-16.0); Lymphocytes Absolute Auto 800 /uL (1100-4500); Lymphocytes Percent Auto 8.5 % (25-40); Mean Corpuscular HGB Conc 33.1 % (30-36); Mean Corpuscular Volume 84.4 fL (80-100); Monocytes Absolute Auto 300 /uL (0-900); Monocytes Percent Auto 2.9 % (3-14); Neutrophils Absolute Auto 8500 /uL (1500-7000); Platelet Count 392 X10^3/uL (150-400); Red Blood Cell Count 4.41 X10^6/uL (4.0-5.2); Red Cell Distribution Width 14.3 % (11.6-14.8); White Blood Cell Count 9.7 X10^3/uL (4.5-11.0)
[2020-10-24 05:05] LABS: INR 1.2 (0.9-1.3); Prothrombin Time 13.2 SECONDS (10.1-12.7)
[2020-10-24 05:11] LABS: Alanine Aminotransferase 76 IU/L (<35); Albumin 3.6 g/dL (3.5-5.0); Albumin Globulin Ratio 1.1 (1.0-2.8); Alkaline Phosphatase 110 U/L (38-126); Aspartate Aminotransferase 83 IU/L (14-36); BUN Creatinine Ratio 27.2 (6-22); Bilirubin Total 0.4 mg/dL (0.2-1.3); Blood Urea Nitrogen 28 mg/dL (7-17); Carbon Dioxide 24 mmol/L (22-32); Chloride 106 mmol/L (98-107); Estimated Glomerular Filt Rate 51.6 mL/min (>60); Globulin 3.3 g/dL (1.7-4.1); Glucose 141 mg/dL (80-110); HEMOLYSIS < 15 (0-50); Potassium 4.1 mmol/L (3.4-5.1); Sodium 138 mmol/L (137-145); Total Protein 6.9 g/dL (6.3-8.2)
[2020-10-24] MEDS: HEPARIN 5,000 UNIT/ML VIAL 5000 UNIT SUBCUT ×2 (09:12→20:49)
--- NOTE | 2020-10-24 10:42 | CM.DANOTE ---
DCP Assessment: Per MD, pt remains on 3-4L oxygen and not medically stable to d/c yet and per RN pt has been able to get up to BSC but fatigues and de-sats easily. SW called pt via phone due to COVID precautions and pt audibly breathing heavily but able to participate in phone conversation. SW explained role and pt confirms that she lives in [place] with her sister Deanne who pt states is also her DPOA. Pt is active and independent at baseline, drives, and uses a cane for ambulation. Pt used [facility] a couple years ago after knee surgery but denies any hx of SNF. Pt states she is unvaccinated but her sister is COVID vaccinated but also contracted COVID and has been sick but able to remain home without hospitalization and is slowly improving. Pt does not anticipate needs at d/c but pending pt's strength and mobility closer to d/c. Plan: SW to follow closely for pt's oxygen needs and endurance closer to d/c towards determining if pt will be safe for d/c home with sister and any further needs at discharge. ELDA Molina
--- NOTE | 2020-10-24 12:08 | PM.PN.1 ---
Subjective Subjective Date Patient Seen: 10/24/20 Time Patient Seen: 08:30 Interval history: She says she feels slightly better. Less short of breath, but not completely resolved. She has mild coughing. Exam Vital Signs (past 8 hours): - 10/24/20 04:50 10/24/20 05:00 10/24/20 06:45 Temperature 98.3 F Pulse Rate 78 Respiratory Rate 24 Blood Pressure 111/70 Pulse Oximetry 93 92 94 10/24/20 08:45 10/24/20 09:00 10/24/20 11:48 Temperature 98.3 F Pulse Rate 62 Respiratory Rate 22 Blood Pressure 121/66 Pulse Oximetry 90 L 92 92 Oxygen Delivery Method Nasal Cannula Oxygen Flow Rate 2.5 Narrative Exam Narrative: GEN: alert and oriented x3, in no apparent distress CV: regular rate and rhythm without murmur PULM: clear to auscultation bilaterally EXT: no edema Objective Labs Result Diagrams: 10/24/20 04:40 10/24/20 04:40 Labs: Laboratory Results - last 24 hr 10/24/20 10/24/20 10/24/20 04:40 04:40 04:40 WBC 9.7 D RBC 4.41 Hgb 12.3 Hct 37.3 MCV 84.4 MCH 28.0 MCHC 33.1 RDW 14.3 Plt Count 392 Neut % (Auto) 88.0 H Lymph % (Auto) 8.5 L [place] % (Auto) 2.9 L Eos % (Auto) 0.0 L Baso % (Auto) 0.6 Neut # (Auto) 8500 H Lymph # (Auto) 800 L [place] # (Auto) 300 Eos # (Auto) 0 Baso # (Auto) 100 PT 13.2 H INR 1.2 Sodium 138 Potassium 4.1 Chloride 106 Carbon Dioxide 24 BUN 28 H Creatinine 1.03 Estimated GFR 51.6 L BUN/Creatinine Ratio 27.2 H Glucose 141 H Calcium 9.0 Total Bilirubin 0.4 AST 83 H ALT 76 H Alkaline Phosphatase 110 Total Protein 6.9 Albumin 3.6 Globulin 3.3 Albumin/Globulin Ratio 1.1 PFSH Medical History Bilateral primary osteoarthritis of knee Establishing care with new doctor, encounter for Hammer toes, bilateral Intermittent diarrhea Restless leg syndrome Skin tag Wears glasses Surgical History Anesthesia Patellar fracture Status post bilateral knee replacements Status post hysterectomy (~1972) Family History Father Cancer Sister Diabetes mellitus Overweight Sister Diabetes mellitus Sister Arthritis Incontinence Other Family history non-contributory Social History household members: family Smoking Status: Never smoker alcohol intake: never Assessment & Plan Assessment & Plan narrative: Ms. Bellamy is an 80W with no significant PMH, and takes no medications presenting with hypoxemic respiratory failure secondary to COVID pneumonia 1. Acute respiratory failure with hypoxia, secondary to COVID pneumonia, Sepsis, acute, present on admission - Chest x-ray demonstrates nonspecific patchy bibasilar pulmonary atelectasis and infiltrates with underlying chronic interstitial changes. -Remdesivir 100 mg p.o. q.day & dexamethasone 6 mg QD x 10 days or until D/C. Patient to start Baricitinib 4mg QD if patient placed on High Flow 02. Encourage frequent PRONING, provided pain medication to ease discomfort for prolonged proning. -On admit SOFA score of 3, Enlisted Advisor Cl: 48, dimer 1009 - but CTA on admission is negative for PE -albuterol HFA inhaler and heparin 5000 units q 12 h -if liver enzymes begin to increase stop remdesivir. Upon admit AST 87, ALT 58, alk-phos and bilirubin WNL 2. Acute kidney injury with mild hyponatremia, acute, present on admission, resolved -Na 130, with LAURIE BUN 25, creatinine 1.29, GFR 39.8, glucose 129, lactate is negative, sofa score 3, creatinine clearance calculated 48 -normal saline at 60 cc/hour -monitor chemistry daily Code status:DNR Surrogate decision maker: Deanne Layton Sister COVID PCR: Positive COVID vaccine: Unvaccinated VTE/DVT prophylaxis: LMW heparin 5000 units BID, and SCDs Quality VTE Deep Vein Thrombosis/Pulmonary Embolism Present on Admission: No
[2020-10-24] MEDS: REMDESIVIR 100 MG in SODIUM CHLORIDE 0.9% 230 ML 250 ML IV (20:49)
[2020-10-24] MEDS: DEXAMETHASONE 10 MG/ML VIAL 6 MG IV (20:49)
[2020-10-24] MEDS: MAG HYDROX/ALUM/SIMETH 30 ML UDC PO (20:49)
[2020-10-25] VITALS (16 sets, daily range): BP systolic 112–131; BP diastolic 55–77; PULSE 62–75; RESP 16–24; TEMP 36.5–36.9; O2SAT 88–95
[2020-10-25] MEDS: ACETAMINOPHEN 325 MG TABLET 650 MG PO ×2 (00:59→11:45)
[2020-10-25 05:33] LABS: Add Manual Diff / Slide Review NO; Basophils Absolute Auto 0 /uL (0-100); Basophils Percent Auto 0.3 % (0-2); Eosinophils Absolute Auto 0 /uL (0-450); Hematocrit 36.3 % (36-46); Lymphocytes Absolute Auto 900 /uL (1100-4500); Lymphocytes Percent Auto 8.9 % (25-40); Mean Corpuscular Hemoglobin 27.9 PG (26-34); Mean Corpuscular Volume 84.5 fL (80-100); Monocytes Absolute Auto 300 /uL (0-900); Monocytes Percent Auto 2.6 % (3-14); Neutrophils Absolute Auto 9100 /uL (1500-7000); Neutrophils Percent Auto 88.2 % (50-75); Platelet Count 450 X10^3/uL (150-400); Red Blood Cell Count 4.29 X10^6/uL (4.0-5.2); Red Cell Distribution Width 14.7 % (11.6-14.8); White Blood Cell Count 10.4 X10^3/uL (4.5-11.0)
[2020-10-25 05:46] LABS: Alanine Aminotransferase 56 IU/L (<35); Albumin 3.4 g/dL (3.5-5.0); Albumin Globulin Ratio 1.1 (1.0-2.8); Alkaline Phosphatase 96 U/L (38-126); Aspartate Aminotransferase 52 IU/L (14-36); BUN Creatinine Ratio 27.4 (6-22); Bilirubin Total 0.4 mg/dL (0.2-1.3); Blood Urea Nitrogen 29 mg/dL (7-17); Calcium 8.7 mg/dL (8.4-10.2); Carbon Dioxide 23 mmol/L (22-32); Chloride 106 mmol/L (98-107); Estimated Glomerular Filt Rate 49.9 mL/min (>60); Globulin 3.1 g/dL (1.7-4.1); Glucose 129 mg/dL (80-110); HEMOLYSIS < 15 (0-50); Sodium 137 mmol/L (137-145); Total Protein 6.5 g/dL (6.3-8.2)
[2020-10-25 05:50] LABS: INR 1.2 (0.9-1.3); Prothrombin Time 13.4 SECONDS (10.1-12.7)
[2020-10-25] MEDS: HEPARIN 5,000 UNIT/ML VIAL 5000 UNIT SUBCUT ×2 (08:15→20:13)
--- NOTE | 2020-10-25 14:57 | P.PN_ITS ---
Subjective Subjective Date Patient Seen: 10/25/20 Time Patient Seen: 09:00 Interval history: Today she feels similar to yesterday. She has mild shortness of breath at rest. But continues to require 4L o2, and she continues to desaturate with activity to the 70s-80s sp02 Exam Vital Signs (past 8 hours): - 10/25/20 08:35 10/25/20 09:00 10/25/20 11:03 Temperature Pulse Rate 74 Respiratory Rate 22 Blood Pressure 116/55 L Pulse Oximetry 90 L 93 94 10/25/20 11:23 10/25/20 11:24 10/25/20 12:15 Temperature 97.7 F Pulse Rate 64 Respiratory Rate 21 Blood Pressure 128/63 Pulse Oximetry 88 L 92 93 10/25/20 13:00 Temperature Pulse Rate Respiratory Rate Blood Pressure Pulse Oximetry 93 Oxygen Delivery Method Nasal Cannula Oxygen Flow Rate 4 Narrative Exam Narrative: GEN: alert and oriented x3, in no apparent distress CV: regular rate and rhythm without murmur PULM: clear to auscultation bilaterally EXT: no edema Objective Labs Result Diagrams: 10/25/20 05:19 10/25/20 05:19 Labs: Laboratory Results - last 24 hr 10/25/20 10/25/20 10/25/20 05:19 05:19 05:19 WBC 10.4 RBC 4.29 Hgb 12.0 Hct 36.3 MCV 84.5 MCH 27.9 MCHC 33.0 RDW 14.7 Plt Count 450 H Neut % (Auto) 88.2 H Lymph % (Auto) 8.9 L Dillon % (Auto) 2.6 L Eos % (Auto) 0.0 L Baso % (Auto) 0.3 Neut # (Auto) 9100 H Lymph # (Auto) 900 L Dillon # (Auto) 300 Eos # (Auto) 0 Baso # (Auto) 0 PT 13.4 H INR 1.2 Sodium 137 Potassium 4.0 Chloride 106 Carbon Dioxide 23 BUN 29 H Creatinine 1.06 H Estimated GFR 49.9 L BUN/Creatinine Ratio 27.4 H Glucose 129 H Calcium 8.7 Total Bilirubin 0.4 AST 52 H ALT 56 H Alkaline Phosphatase 96 Total Protein 6.5 Albumin 3.4 L Globulin 3.1 Albumin/Globulin Ratio 1.1 [facility] Medical History Bilateral primary osteoarthritis of knee Establishing care with new doctor, encounter for Hammer toes, bilateral Intermittent diarrhea Restless leg syndrome Skin tag Wears glasses Surgical History Anesthesia Patellar fracture Status post bilateral knee replacements Status post hysterectomy (~1972) Family History Father Cancer Sister Diabetes mellitus Overweight Sister Diabetes mellitus Sister Arthritis Incontinence Other Family history non-contributory Social History household members: family Smoking Status: Never smoker alcohol intake: never Assessment & Plan Assessment & Plan narrative: Ms. Bellamy is an 80W with no significant PMH, and takes no medications presenting with hypoxemic respiratory failure secondary to COVID pneumonia 1. Acute respiratory failure with hypoxia, secondary to COVID pneumonia, Sepsis, acute, present on admission -Chest x-ray demonstrates nonspecific patchy bibasilar pulmonary atelectasis and infiltrates with underlying chronic interstitial changes. -Remdesivir 100 mg p.o. q.day & dexamethasone 6 mg QD x 10 days or until D/C. Encourage frequent PRONING, provided pain medication to ease discomfort for prolonged proning. -On admit SOFA score of 3, [employer]st [employer] Cl: 48, dimer 1009 - but CTA on admission is negative for PE -albuterol HFA inhaler and heparin 5000 units q 12 h -if liver enzymes begin to increase stop remdesivir. Upon admit AST 87, ALT 58, alk-phos and bilirubin WNL 2. Acute kidney injury with mild hyponatremia, acute, present on admission, resolved -Na 130, with LAURIE BUN 25, creatinine 1.29, GFR 39.8, glucose 129, lactate is negative, sofa score 3, creatinine clearance calculated 48 -monitor chemistry daily Code status:DNR Surrogate decision maker: Deanne Layton Sister COVID PCR: Positive COVID vaccine: Unvaccinated VTE/DVT prophylaxis: LMW heparin 5000 units BID, and SCDs Quality VTE Deep Vein Thrombosis/Pulmonary Embolism Present on Admission: No
[2020-10-25] MEDS: DEXAMETHASONE 10 MG/ML VIAL 6 MG IV (20:09)
[2020-10-25] MEDS: REMDESIVIR 100 MG in SODIUM CHLORIDE 0.9% 230 ML 250 ML IV (20:11)
[2020-10-25] MEDS: SODIUM CHLORIDE 0.9% FLUSH 10 ML IV (20:32)
[2020-10-26] VITALS (8 sets, daily range): BP systolic 117–133; BP diastolic 57–76; PULSE 66–75; RESP 19–26; TEMP 36.6–36.8; O2SAT 90–95
[2020-10-26] MEDS: ACETAMINOPHEN 325 MG TABLET 650 MG PO (06:18)
[2020-10-26] MEDS: SODIUM CHLORIDE 0.9% FLUSH 10 ML IV ×2 (06:18→09:50)
[2020-10-26 06:49] LABS: Hematocrit 34.4 % (36-46); Hemoglobin 11.6 g/dL (12.0-16.0); Mean Corpuscular HGB Conc 33.6 % (30-36); Mean Corpuscular Hemoglobin 28.4 PG (26-34); Mean Corpuscular Volume 84.4 fL (80-100); Platelet Count 420 X10^3/uL (150-400); Red Blood Cell Count 4.08 X10^6/uL (4.0-5.2); Red Cell Distribution Width 14.4 % (11.6-14.8); White Blood Cell Count 8.9 X10^3/uL (4.5-11.0)
[2020-10-26 06:57] LABS: BUN Creatinine Ratio 30.1 (6-22); Blood Urea Nitrogen 31 mg/dL (7-17); Calcium 8.6 mg/dL (8.4-10.2); Carbon Dioxide 25 mmol/L (22-32); Chloride 107 mmol/L (98-107); Estimated Glomerular Filt Rate 51.6 mL/min (>60); Glucose 112 mg/dL (80-110); HEMOLYSIS < 15 (0-50); Potassium 4.1 mmol/L (3.4-5.1); Sodium 137 mmol/L (137-145)
[2020-10-26] MEDS: HEPARIN 5,000 UNIT/ML VIAL 5000 UNIT SUBCUT (09:35)
[2020-10-26] MEDS: LOPERAMIDE 2 MG CAPSULE PO (11:19)
--- NOTE | 2020-10-26 13:14 | P.DS_ITS ---
History of Present Illness History of Present Illness Chief complaint: hard to breath, shallow breathing, cough, Narrative: Per Joann Casas: Patient is an 80-year-old female Catrachita Bellamy who presented to the ED today with 10 days of COVID symptoms. She states that she was in [place] which is were she thinks she was exposed she was not wearing a mask and someone there was diagnosed with COVID. She started having symptoms 10 days ago. She initially had a head cold, congestion, nasal drainage but has progressed into difficulty breathing. Patient denies chest pain, fever, body aches, chills, nausea, v omiting, abdominal pain, numbness, tingling, recent injury, illness, or trauma. Patient states that she has no medical history and takes no medications. Upon admit patient remains on O2 with states she has continued shortness of breath but improved from ED, no other complaints at this time. Patient's vitals were stable on admit with the exception of respiratory, temp 95.9?, BP 154/91, HR 67, slightly tachypneic RR 24, O2 saturation 78% on room air. Patient placed on O2, O2 saturation 93% on 2 L. Patient's CBC demonstrated mild anemia with no white count HGB 11.6, HCT 34, neutrophils 7600. Patient has mild hyponatremia Na 130, with LAURIE BUN 25, creatinine 1.29, GFR 39.8, glucose 129, lactate is negative, sofa score 3, creatinine clearance calculated 48. Patient's chest x-ray demonstrates nonspecific patchy bibasilar pulmonary atelectasis and infiltrates with underlying chronic interstitial changes. Patient admitted for acute respiratory failure with hypoxia due to COVID pneumonia, sepsis with LAURIE and mild hyponatremia. Discharge Providers Provider Date of admission: 10/22/20 19:41 Discharge Date: 10/26/20 Primary care physician: Edison Dowd DO Consults: 10/22/20 20:06 Consult to Respiratory Therapy Evaluate & Treat Comment: Covid pneumonia Physician Instructions: Evaluate and treat 10/24/20 22:01 Consult After Hours PICC Line RN Stat Comment: Discharge provider: Faustino Galvan MD Summary Hospital Course Discharge Diagnosis: 1. Acute hypoxemic respiratory failure secondary to COVID pneumonia 2. Acute kidney injury 3. Hyponatremia Hospital Course: Ms. Bellamy is an 80W with no significant PMH, and takes no medications presenting with hypoxemic respiratory failure secondary to COVID pneumonia. She did require nasal cannula oxygen. She was started on remdesivir and dexamethasone. She had good response to these medications. On day of discharge she was feeling much improved. She did desaturate to the 80s on pulse ox with ambulation. She felt good at rest. She was requesting to go home. She will be discharged with oxygen via nasal cannula for her hypoxemia. She was encouraged to isolate for another week. She is recommended to get the COVID vaccine as soon as she is asymptomatic. Exam Vital Signs (past 8 hours): - 10/26/20 08:00 10/26/20 09:00 Temperature 97.9 F Pulse Rate 70 Respiratory Rate 19 Blood Pressure 133/76 Pulse Oximetry 90 L 95 Oxygen Delivery Method Nasal Cannula Oxygen Flow Rate 2 Objective Labs Result Diagrams: 10/26/20 06:35 10/26/20 06:35 Labs: Laboratory Results - last 24 hr 10/26/20 10/26/20 06:35 06:35 WBC 8.9 RBC 4.08 Hgb 11.6 L Hct 34.4 L MCV 84.4 MCH 28.4 MCHC 33.6 RDW 14.4 Plt Count 420 H Sodium 137 Potassium 4.1 Chloride 107 Carbon Dioxide 25 BUN 31 H Creatinine 1.03 Estimated GFR 51.6 L BUN/Creatinine Ratio 30.1 H Glucose 112 H Calcium 8.6 PFSH Medical History Bilateral primary osteoarthritis of knee Establishing care with new doctor, encounter for Hammer toes, bilateral Intermittent diarrhea Restless leg syndrome Skin tag Wears glasses Surgical History Anesthesia Patellar fracture Status post bilateral knee replacements Status post hysterectomy (~1972) Family History Father Cancer Sister Diabetes mellitus Overweight Sister Diabetes mellitus Sister Arthritis Incontinence Other Family history non-contributory Social History household members: family Smoking Status: Never smoker alcohol intake: never Discharge Plan Discharge Plan Patient Disposition: Home Provider Discharge Comment: Ms. Bellamy came to the hospital with cough and shortness of breath. She was diagnosed with COVID pneumonia. She improved with treatment. She still desaturated and had mild shortness of breath with activity off oxygen. So she will be discharged with home oxygen. She should continue to isolate as much as possible for another week. She is recommended to get a vaccine for COVID as soon as she is no longer having symptoms. Discharge orders & Medications Prescriptions: Continued acetaminophen 325 mg tablet 650 mg PO QAM RF: 0 ibuprofen 200 mg capsule 600 mg PO .AM PRN (Reason: Inflammation) RF: 0 Follow up/Referrals: Edison Dowd DO [Primary Care Provider] - Diet/Activity/Treatments Diet: Regular Visit Report/Discharge Packet Instructions: DI for Hypoxia, DI for COVID-19 (Suspected or Confirmed ) Discharge Data Primary Care Provider: Edison Dowd Quality VTE Deep Vein Thrombosis/Pulmonary Embolism Present on Admission: No MIPS - DC The patient has current or prior documentation of left ventricular ejection fraction (LVEF) less than 40%, or moderate or severely depressed left ventricular systolic function.: No
--- NOTE | 2020-10-26 15:34 | PC.NURSE ---
Pt A&O x3. Pt reports feeling much improved today although still requiring 1-2L NC with activity and experiencing SOB with activity. VSS, afebrile. LS clear, diminished. Pt denies pain. Pt cleared for discharge today with home 02. Pt verbalizes understanding of discharge instructions, home 02, activity and follow up instructions. 02 tank arrived, per RT, and patient escorted via w/ch to private vehicle with sister and all of her belongings this afternoon approximatelly 1420.
--- NOTE | 2020-10-27 09:28 | CM.DPNOTE ---
DC Note Late Entry Patient DC 8.18.21, home w/sister to transport. No needs identified from this PROCESS SAFETY SPECIALIST by Dr Galvan and CAPRI BENAVIDES
== END 2020-10-26 14:20 | disposition home or self-care (01) | DRG 871 ==
LOC: ED 17:56 → AC 19:42
PROVIDERS: Emergency Medicine; Internal Medicine; Admitting Provider Nurse Practitioner Family; Emergency Provider Emergency Medicine; Family Provider Orthopaedic Surgery; PCP Family Medicine; Referring Provider Emergency Medicine; Visit Provider Nurse Practitioner Family
DX: A41.89 Other specified sepsis (principal); U07.1 COVID-19; J12.82 Pneumonia due to coronavirus disease 2019; J96.01 Acute respiratory failure with hypoxia; N17.9 Acute kidney failure, unspecified; E87.1 Hypo-osmolality and hyponatremia; R65.20 Severe sepsis without septic shock
CPT/HCPCS: 36415; 36592; 36600; 71045; 71275; 80048; 80053; 82805; 83605; 83735; 83880; 84145; 84484; 85025; 85027; 85379; 85610; 86140; 87635; 93005; 94618; 94667; 94760; 96365; 96375; 99284; 99285; C9803; A9270; J1100; J1642; J1644; Q9967

== ENCOUNTER → 2020-12-08 12:52 | Outpatient (CLI) | payer OTHER, SELFPAY ==
[2020-10-22 22:31] VITALS: BMI 33.0
[2020-12-09 15:08] LABS: Fecal Immunochemical Test Negative (Negative)
== END ==
PROVIDERS: Family Provider Orthopaedic Surgery; PCP Family Medicine; Referring Provider Family Medicine; Visit Provider Family Medicine
DX: Z12.11 Encounter for screening for malignant neoplasm of colon (principal)
CPT/HCPCS: 82274

== ENCOUNTER → 2021-01-05 11:04 | Outpatient (CLI) | payer OTHER, SELFPAY ==
[2020-10-22 22:31] VITALS: BMI 33.0
[2021-01-05 12:44] LABS: COVID19 -Nasal RAPID Negative (Negative)
== END ==
PROVIDERS: Family Provider Orthopaedic Surgery; PCP Family Medicine; Referring Provider Internal Medicine; Visit Provider Internal Medicine
DX: Z20.822 Contact with and (suspected) exposure to COVID-19 (principal)
CPT/HCPCS: 87635; C9803

== ENCOUNTER → 2021-01-06 06:51 | Outpatient (CLI) | payer OTHER, SELFPAY ==
[2020-10-22 22:31] VITALS: BMI 33.0
--- NOTE | 2021-01-11 08:28 | PM.PFT.1 ---
Pulmonary Function Test Referral & Results Date Patient Seen: 01/06/21 Indication: Post COVID Results: The spirometry demonstrates an FVC of 2.03 L which is 74% of predicted. The FEV1 was measured at 1.69 L which is 83% of predicted. The FEV1/FVC ratio was 83 which is 112% of predicted. Following the administration of bronchodilator there was no appreciable change. Lung volumes show an SVC of 2.02 L which is 73% of predicted. The diffusing capacity was measured at 9.44 which is 36% of predicted. No hemoglobin value was provided, so no correction for potential anemia could be made, if appropriate. The maximum voluntary ventilation was normal Interpretation: This study demonstrates possibly very mild obstructive lung disease based on reduction FEV1 although FEV1/FVC ratio is preserved, shape of flow volume loop does not support the presence of obstructive lung disease and there is no benefit post bronchodilator There is also a mild reduction in lung volumes suggesting mild restrictive lung disease present which may explain abnormality in FEV1 above There is a much more marked reduction diffusing capacity suggesting significant disease at the capillary alveolar level to the point where patient may well be hypoxic at times on room air Clinical correlation suggested
== END ==
PROVIDERS: Family Provider Orthopaedic Surgery; PCP Family Medicine; Referring Provider Family Medicine; Visit Provider Family Medicine
DX: R09.02 Hypoxemia (principal); Z86.16 Personal history of COVID-19
CPT/HCPCS: 94060; 94726; 94729

== ENCOUNTER 2021-03-21 09:58 | Outpatient (RCR) | payer OTHER, SELFPAY ==
[2020-10-22 22:31] VITALS: BMI 33.0
== END 2021-03-21 11:58 ==
LOC: PUL 09:58
PROVIDERS: Family Provider Orthopaedic Surgery; PCP Family Medicine; Referring Provider Family Medicine; Visit Provider Family Medicine
DX: Z86.16 Personal history of COVID-19 (principal); R09.02 Hypoxemia
CPT/HCPCS: G0237; G0238

== ENCOUNTER → 2021-05-01 13:20 | Outpatient (CLI) | payer OTHER, SELFPAY ==
[2020-10-22 22:31] VITALS: BMI 33.0
--- NOTE | 2021-05-01 13:21 | DI.RAD.S_ITS ---
PROCEDURE: XR KNEE RT 3V INDICATIONS: change in shape of knee replacement and pain TECHNIQUE: 3 views of the knee were acquired. COMPARISON: [facility], CR, XR KNEE RT 3V, 03/18/2018, 12:45. [facility] [place], CR, XR KNEE 1 OR 2 VIEWS RIGHT, 07/02/2018, 9:57. [facility] [place], CR, XR KNEE ARTHRITIC SERIES BI, 01/30/2019, 8:40. [facility] [place], CR, XR KNEE 1 OR 2 VIEWS RIGHT, 11/05/2018, 8:25. [facility], CR, XR KNEE RT 1TO2V, 04/02/2018, 19:46. FINDINGS: Bones: Right TKA again noted and there has been interval superior displacement of the patellar prosthetic component which is also rotated in a vertical fashion as is well seen on the lateral view. Prosthetic components otherwise are in expected unchanged positions. Bony fragment related to prior patellar fracture again seen over the mid knee joint. Soft tissues: Moderate joint effusion. No suspicious soft tissue calcifications. IMPRESSION: 1. Right TKA redemonstrated and there is superior displacement of the patellar prosthetic component which is now oriented in in a vertical fashion which has increased from prior examination dated 01/30/2019. The superior patellar osseous fragment is also displaced superiorly with the prosthesis. Dictated by: Henok MOYA Interpreted: Virgil Galo MD on 05/01/2021 at 13:32 Approved by: Virgil Galo M.D. on 05/01/2021 at 17:23
== END ==
PROVIDERS: Family Provider Orthopaedic Surgery; PCP Family Medicine; Referring Provider Family Medicine; Visit Provider Family Medicine
DX: M25.461 Effusion, right knee (principal); M25.561 Pain in right knee; Z96.651 Presence of right artificial knee joint
CPT/HCPCS: 73562

== ENCOUNTER → 2021-05-17 16:03 | Outpatient (CLI) | payer OTHER, SELFPAY ==
[2020-10-22 22:31] VITALS: BMI 33.0
[2021-05-17 16:49] LABS: Add Manual Diff / Slide Review NO; Appearance Urine UA CLEAR; Basophils Absolute Auto 100 /uL (0-100); Basophils Percent Auto 1.1 % (0-2); Bilirubin Urine UA NEGATIVE (NEGATIVE); Color Urine UA YELLOW; Eosinophils Absolute Auto 300 /uL (0-450); Eosinophils Percent Auto 5.4 % (2-4); Glucose Urine UA NEGATIVE (Negative); Hematocrit 39.3 % (36-46); Ketones Urine UA NEGATIVE (NEGATIVE); Leukocyte Esterase Urine UA TRACE (NEGATIVE); Lymphocytes Absolute Auto 1600 /uL (1100-4500); Lymphocytes Percent Auto 31.2 % (25-40); Mean Corpuscular HGB Conc 33.1 % (30-36); Mean Corpuscular Hemoglobin 27.9 PG (26-34); Mean Corpuscular Volume 84.3 fL (80-100); Monocytes Absolute Auto 500 /uL (0-900); Monocytes Percent Auto 9.9 % (3-14); Neutrophils Absolute Auto 2700 /uL (1500-7000); Neutrophils Percent Auto 52.4 % (50-75); Nitrite Urine UA NEGATIVE (Negative); Occult Blood Urine UA NEGATIVE (Negative); Platelet Count 260 X10^3/uL (150-400); Protein Urine UA NEGATIVE (Negative); Red Blood Cell Count 4.66 X10^6/uL (4.0-5.2); Red Cell Distribution Width 15.1 % (11.6-14.8); Specific Gravity Urine UA 1.015 (1.000-1.035); Urobilinogen Urine UA 0.2 E.U./dL (0.2); White Blood Cell Count 5.2 X10^3/uL (4.5-11.0)
[2021-05-17 17:08] LABS: Alanine Aminotransferase 16 IU/L (<35); Albumin 4.2 g/dL (3.5-5.0); Albumin Globulin Ratio 1.4 (1.0-2.8); Alkaline Phosphatase 53 U/L (38-126); Aspartate Aminotransferase 26 IU/L (14-36); BUN Creatinine Ratio 20.2 (6-22); Bilirubin Total 0.5 mg/dL (0.2-1.3); Blood Urea Nitrogen 21 mg/dL (7-17); Calcium 9.7 mg/dL (8.4-10.2); Carbon Dioxide 32 mmol/L (22-32); Chloride 105 mmol/L (98-107); Glucose 87 mg/dL (80-110); HEMOLYSIS < 15 (0-50); Sodium 140 mmol/L (137-145); Total Protein 7.2 g/dL (6.3-8.2)
[2021-05-17 17:10] LABS: Hemoglobin A1C% w Est Avg Glu 5.4 % (4.0-6.0)
[2021-05-17 17:16] LABS: RBC Urine None Seen (0-5/HPF)
[2021-05-17 17:17] LABS: Bacteria Urine Occasional (0-1); Culture Indicated Urine Specimen Cultured; Squamous Epithelial Cell Urine 0-1 /HPF (0-5/HPF); WBC Urine 1-5/HPF (0-5/HPF)
== END ==
PROVIDERS: Family Provider Orthopaedic Surgery; PCP Family Medicine; Referring Provider Orthopaedic Surgery; Visit Provider Orthopaedic Surgery
DX: Z01.818 Encounter for other preprocedural examination (principal); N39.0 Urinary tract infection, site not specified; R73.9 Hyperglycemia, unspecified; Z01.812 Encounter for preprocedural laboratory examination
CPT/HCPCS: 36415; 80053; 81001; 83036; 85025; 87086; 93005

== ENCOUNTER → 2021-05-31 11:55 | Outpatient (CLI) | payer OTHER, SELFPAY ==
[2020-10-22 22:31] VITALS: BMI 33.0
[2021-05-31 13:14] LABS: COVID19 -Nasal RAPID Negative (Negative)
== END ==
PROVIDERS: Family Provider Orthopaedic Surgery; PCP Family Medicine; Visit Provider Nurse Practitioner Family
DX: Z20.822 Contact with and (suspected) exposure to COVID-19 (principal)
CPT/HCPCS: 87635; C9803

== ENCOUNTER 2021-06-02 12:26 | Day surgery (SDC) | payer OTHER, SELFPAY ==
[2020-10-22 22:31] VITALS: BMI 33.0
[2021-05-30 15:11] VITALS: BMI 36.0
[2021-06-02] VITALS (10 sets, daily range): BP systolic 96–161; BP diastolic 46–79; PULSE 69–81; RESP 12–20; TEMP 36.2–37; O2SAT 96–100; BMI 36.0
[2021-06-02] MEDS: VANCOMYCIN 1,000 MG/200 ML PIGGYBACK 200 MG IV (13:09)
[2021-06-02] MEDS: LACTATED RINGERS 1,000 ML 42 ML IV (13:09)
--- NOTE | 2021-06-02 14:07 | PM.PREOP ---
Pre-operative Note COVID-19 COVID-19 status: Negative Interval Note History & Physical reviewed/Exam performed by Physician: Yes Changes to H&P: No
--- NOTE | 2021-06-02 14:15 | SUR.OPER ---
Supine on padded OR bed. Pillow under head, arms secured on padded armboards <90 degree abduction. Safety belt across torso. Non-operative leg secured with tape over blanket over lower leg. Operative leg secured in [employer] positioner. Foam padded brace at thigh of operative leg.
[2021-06-02] MEDS: CEFAZOLIN 2 GM/20 ML SYRINGE IV ×2 (15:00→22:41)
[2021-06-02] MEDS: ACETAMINOPHEN IV 1,000 MG/100 ML VIAL 400 MG IV (15:09)
[2021-06-02] MEDS: BUPIVACAINE 0.25% (PF) 30 ML, EPINEPHrine 0.15 MG INJ (15:11)
[2021-06-02] MEDS: BUPIVACAINE LIPOSOME 266 MG/20 ML VIAL INJ (15:12)
--- NOTE | 2021-06-02 16:16 | SUR.PHASEI ---
Requested that patient be admitted due to spinal and the fact that patient will be held in PACU for an unreasonable amount of time for her spinal to wear off and get home safely. Dr Bellamy in agreement.
--- NOTE | 2021-06-02 16:20 | P.OP_ITS ---
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 She went on to have a patellar nonunion. She has actually had reasonable function over the years but she does note that she is having progressive problems with a prominent bump on the anterior aspect of her knee which is her patellar component and is essentially tenting the skin. She is brought the operating room for a patellectomy and repair of quad and extensor mechanism is needed. She did not have a severe extensor lag preoperatively. Surgeon: Doris Bellamy Software Packager: Laura Quiros Anesthesia Type: Spinal Operative Notes Findings: Some bony ingrowth into her patellar component in the proximal pole, no ingrowth in the inferior aspect of the patella Closure Type: primary Specimen(s): none sent Prosthetic devices, grafts, tissues, transplants, or devices: Achilles tendon allograft Estimated Blood Loss (mL): 150 Blood products transfused: none Tourniquet time (min): 54 Procedure in detail: Patient is brought the operating room she underwent the induction of a spinal anesthesia. Her leg was prepped and draped standard sterile fashion. She was given IV antibiotics. A time-out was performed. Her right lower extremities prepped draped standard sterile fashion. A small midline incision was made through her previous incision dissection was carried out through skin and subcutaneous tissues. In the subcutaneous tissues her patellar component head spun perpendicular to her knee. It was quite prominent. The patellar component and the proximal pole of the patella was meticulously resected. The femoral com ponent was visualized through the hole in the extensor mechanism. There was bony ingrowth into the proximal pole fragment. Essentially a linear incision was made in the extensor mechanism. The extensor mechanism was then repaired using a combination of interrupted PDS side to side repair pulling residual extensor making over the femoral component. It was further reinforced with Achilles tendon allograft. It was a fairly large gap and a good quality graft was obtained and used to reinforce the residual [place] tissue. Patient was placed a range of motion gently avoiding high flexion. There appeared to be adequate tension on the graft. There was no leaking of fluid from the synovium or joint at that point. Marcaine and Exparel were carefully injected. The wound was closed with interrupted Vicryl and skin wiley. The wound was dressed with a sterile dressing. She tolerated the procedure well. Complications: none Post-operative Condition: stable Disposition: Acute Care Plan for aftercare: Weight-bearing as tolerated on the right lower extremity. Use brace most of the time in order to avoid falls and high flexion. Okay to have off for showering as long as she is seated and keeps her leg extended. Avoid high flexion.
[2021-06-02] MEDS: IBUPROFEN 400 MG TABLET PO (17:58)
[2021-06-02] MEDS: LACTATED RINGERS 1,000 ML 100 ML IV (17:58)
[2021-06-02] MEDS: ACETAMINOPHEN 325 MG TABLET 650 MG PO (20:31)
[2021-06-02] MEDS: ASPIRIN EC 81 MG TABLET PO (20:31)
[2021-06-03] MEDS: IBUPROFEN 400 MG TABLET PO ×2 (00:11→06:15)
[2021-06-03] MEDS: LACTATED RINGERS 1,000 ML 100 ML IV (00:11)
[2021-06-03 00:22] VITALS: BP 150/80; PULSE 85; RESP 16; TEMP 36.9; O2SAT 97
[2021-06-03 06:00] LABS: Hematocrit 35.9 % (36-46); Hemoglobin 12.3 g/dL (12.0-16.0)
[2021-06-03 06:01] VITALS: BP 157/78; PULSE 83; RESP 16; TEMP 36.6; O2SAT 96
[2021-06-03] MEDS: CEFAZOLIN 2 GM/20 ML SYRINGE IV (06:54)
[2021-06-03 07:35] VITALS: BP 144/79; PULSE 93; RESP 20; TEMP 36.9; O2SAT 98
[2021-06-03] MEDS: ASPIRIN EC 81 MG TABLET PO (08:05)
[2021-06-03] MEDS: ACETAMINOPHEN 325 MG TABLET 650 MG PO (08:05)
--- NOTE | 2021-06-03 08:30 | PM.DS.1 ---
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 She went on to have a patellar nonunion.? She has actually had reasonable function over the years but she does note that she is having progressive problems with a prominent bump on the anterior aspect of her knee which is her patellar component and is essentially tenting the skin.? She is brought the operating room for a patellectomy and repair of quad and extensor mechanism is needed.? She did not have a severe extensor lag preoperatively. Surgeon: Doris Bellamy Line Manager: Laura Quiros Anesthesia Type: Spinal Operative Notes Findings: Some bony ingrowth into her patellar component in the proximal pole, no ingrowth in the inferior aspect of the patella Closure Type: primary Specimen(s): none sent Prosthetic devices, grafts, tissues, transplants, or devices: Achilles tendon allograft Estimated Blood Loss (mL): 150 Blood products transfused: none Tourniquet time (min): 54 Discharge Providers Provider Discharge Date: 06/03/21 Primary care physician: Edison Dowd DO Consults: 06/02/21 09:05 Consult to Anesthesiology Routine Comment: Consulting Provider: Anesthesiologist Reason for consultation: Post operative pain managment 06/02/21 16:52 Consult to Discharge Planning Routine Comment: Consult to Physical Therapy Evaluate & Treat Comment: Physician Instructions: postop TKA protocol Consult to Respiratory Therapy Evaluate & Treat Comment: Physician Instructions: Evaluate and treat Discharge provider: Laura Quiros PA-C Summary Hospital Course Discharge Diagnosis: Patellar nonunion, s/p patellectomy and repair of quadriceps tendon Hospital Course: Ms Bellamy's hospital course was unremarkable. On POD#1 she was feeling well and wanted to go home. She was eating and voiding without difficulty and her pain was well-controlled with oral medication. She was evaluated by PT prior to discharge. Exam Vital Signs (past 8 hours): - 06/03/21 06:01 Temperature 97.9 F Pulse Rate 83 Respiratory Rate 16 Blood Pressure 157/78 H Pulse Oximetry 96 Oxygen Delivery Method Room Air Oxygen Flow Rate 0 Narrative Exam Narrative: 5/5 strength in DF, PF, EHL on R; hip flexors, quads, hamstrings not tested d/t bracing. Sensation to light touch intact throughout leg. Calves soft, compressible, nontender and without palpable cords or masses. Aquacel dressing CDI. Objective Labs Result Diagrams: 06/03/21 05:40 Labs: Laboratory Results - last 24 hr 06/03/21 05:40 Hgb 12.3 Hct 35.9 L PFSH Medical History (Updated 05/30/21 @ 15:17 by Luda Navas RN) Acute pain of right knee Bilateral primary osteoarthritis of knee Diarrhea Establishing care with new doctor, encounter for Hammer toes, bilateral History of severe acute respiratory syndrome coronavirus 2 (SARS-CoV-2) disease Hypoxia Intermittent diarrhea Multiple falls Osteoarthritis Restless leg syndrome Skin tag Wears glasses Surgical History (Updated 06/03/21 @ 08:33 by Laura Quiros PA-C) Anesthesia History of orthopedic surgery (04/01/18) History of right knee joint replacement Patellar fracture Status post bilateral knee replacements Status post hysterectomy (~1972) Family History Father Cancer Sister Diabetes mellitus Overweight Sister Diabetes mellitus Sister Arthritis Incontinence Other Family history non-contributory Social History household members: family Smoking Status: Never smoker alcohol intake: never Discharge Assessment & Plan Assessment and Plan Assessment: POD# 1 s/p patellectomy and quadriceps tendon repair. Plan of Treatment: Discharge home, multimodal pain management, ASA 81 mg BID x 6 weeks for VTE prophylaxis Discharge Plan Discharge Plan Patient Disposition: Home Discharge orders & Medications Discharge Orders: Discharge (Order); Ordered 06/03/21 Ordered By: Laura Quiros Prescriptions: New acetaminophen 325 mg Tablet 650 mg PO TID Qty: 180 2RF aspirin 81 mg Tablet,Delayed Release (Dr/Ec) 81 mg PO BID Qty: 90 0RF ibuprofen 400 mg Tablet 400 mg PO Q4HR Qty: 180 0RF oxycodone 5 mg Tablet 5 mg PO Q4H PRN (Reason: Pain,severe) Qty: 60 0RF Discontinued acetaminophen 325 mg tablet 650 mg PO QAM 0RF Follow up/Referrals: Doris Bellamy MD [Family Provider] - As previously scheduled (Follow up with Mary Iyer PA-C, on 06/14/2021 @ 2:00 pm at [facility] office in [place].) Edison Dowd DO [Primary Care Provider] - Diet/Activity/Treatments Diet: Diet as Tolerated Activity: Weight-bearing as tolerated on the right lower extremity. Use brace most of the time in order to avoid falls and high flexion. Okay to have off for showering as long as you are seated and keep your leg extended. Avoid high flexion (more than 45 degrees). Okay to have off to sleep as long as your leg is extended. Skin/Wound/Dressing Care Report to your healthcare provider any signs of infection, such as:: chills, fever, night sweats, increased pain, unusual drainage and unusual redness Dressing: You can take the vazquez wrap off and replace it with soft leggings or another wrap to keep the brace from rubbing. Leave the Aquacel dressing in place until your follow up visit. No bathing or otherwise soaking incision. Visit Report/Discharge Packet Stand Alone Forms: Surgery Discharge Discharge Data Primary Care Provider: Edison Dowd Attending Provider: Doris Bellamy Quality VTE Deep Vein Thrombosis/Pulmonary Embolism Present on Admission: No
[2021-06-03 09:01] VITALS: PULSE 103; RESP 14; O2SAT 98
--- NOTE | 2021-06-03 09:45 | PT.IIE ---
Current Diagnoses Displaced transverse fracture of right patella, subsequent encounter for closed fracture with delayed healing (06/02/21) Other specified postprocedural states (06/02/21) Surgery Performed Operation Date: 06/02/21 14:15 Actual Procedures p suture repair, tendon, patellar, secondary, w. reconstruction using tendon graft, patellectomy of knee(Right) - Doris Bellamy MD Surgical History (Last Updated 05/30/21 @ 15:17 by Luda Navas, RN) Anesthesia Patellar fracture Medical History (Last Updated 05/30/21 @ 15:17 by Luda Navas RN) Acute pain of right knee Bilateral primary osteoarthritis of knee Diarrhea Establishing care with new doctor, encounter for Hammer toes, bilateral History of severe acute respiratory syndrome coronavirus 2 (SARS-CoV-2) disease Hypoxia Intermittent diarrhea Multiple falls Osteoarthritis Restless leg syndrome Skin tag Wears glasses Physical Therapy Inpatient Evaluation/Re-Eval M1 PT/OT-IP Prior Functional Status Start: 06/03/21 12:56 Freq: NEEDED Status: Active Protocol: Document 06/03/21 09:45 AB (Rec[facility]03[facility]21 [email or web address] Medical Review Prior Functional Status Medical History Reviewed Yes Communication able to make needs known Mobility and Gait pt stated that she is independent with all mobilities and ambulation using SPC Social History Household Members family Living Arrangements House Number of Floors (Floors) One Floor Number of Stairs To Enter/Railing? 5 steps B rails to enter Home Environment High Toilet,Walk in Shower Home Equipment Front Wheel Walker,Straight Cane,Shower Seat with Backrest ,Hand Held Shower,Grab Bars Near Toilet Additional Social History Comment pt lives with her sister M2 PT-IP Current Condition Start: 06/03/21 12:56 Freq: NEEDED Status: Active Protocol: Document 06/03/21 09:45 AB (Rec: 06/03/21 13:07 AB [email or web address]) Physical Therapy Current Condition Current Condition Evaluation Date 06/03/21 Treatment Diagnosis s/p R knee patellectomy with quad tendon repair; difficulty in walking Onset Date 06/02/21 M3 PT-IP Subjective Start: 06/03/21 12:56 Freq: NEEDED Status: Active Protocol: Document 06/03/21 09:45 AB (Rec: 06/03/21 13:07 AB [id number]) Subjective Physical Therapy Visit Type Type Initial Evaluation Visit Start Time 09:45 Visit Stop Time 10:20 Total Visit Minutes 35 Number of HVAC SERVICE MANAGER Visits 0 Physical Therapy Visit Comments Patient Comments agreeable to do PT Therapy Pain Assessment Pain Present Pain Present Denied Pain M4 PT-IP Mobility and Gait Start: 06/03/21 12:56 Freq: NEEDED Status: Active Protocol: Document 06/03/21 09:45 AB (Rec: 06/03/21 13:07 AB [email or web address]) PT-Bed Mobility Assessment Supine to Sit Supine to Sit Standby Assistance PT-Transfer Assessment Sit to and From Stand Sit to and from Stand Standby Assistance Equipment Transfer Assistive Device Gait Belt,Front Wheeled Walker Orthotic/Prosthetic Devices or Brace: No Transfers Transfer Destination Chair Transfer Technique ambulated Transfer Ability Level of Assist Standby Assistance Comments Mobility Comments educated pt on R knee precautions and immobilizer management. knee immobilizer positioning adjusted. dial set at 0-40 locked. pt completed supine to sit SBA. sit to stand SBA and ambulated in room using FWW ~ 12 ft SBA . pt agreed to do stairs. completed sit to stand from chair SBA and ambulated ~ 125 ft using FWW SBA. completed up/down stairs using B rails SBA. pt ambulated back to her room using FWW SBA. agreed to sit up on chair and positioned. call light and table placed within reach. Gait Assessment Gait Gait Assistance Required: Standby Assistance Distance (Feet) 125 Able to Maintain Weight Bearing Status Yes During Gait Assistive Devices Assistive Device Gait Belt,Front Wheeled Walker Orthotic/Prosthetic Devices or Brace: No Gait Deviations General Gait Pattern Antalgic,Decreased Feet Clearance Factors Limiting Gait Function Factors Limiting Gait Function Decreased Activity Tolerance, Decreased Strength,Limited Range of Motion,Pain,Poor Balance,Poor Safety Awareness Stair Climbing Assessment Evaluation Level of Assist On Stairs Standby Assistance Devices Stair Climbing Assistive Devices Left Railing,Right Railing Technique/Endurance Stair Climbing Direction Ascend and Descend Stair Climbing Technique Step to Step Number of Steps Climbed 3 Query Text: Stair Climbing Set # Repetitions (reps) 1 PT-Balance Assessment Sitting Balance and Reactions Static Sitting Balance Ability Good Dynamic Sitting Balance Ability Good Standing Balance and Reactions Static Standing Balance Ability Fair Dynamic Standing Balance Ability Fair Device Used FWW M5 PT-IP Objective Assessments Start: 06/03/21 12:56 Freq: NEEDED Status: Active Protocol: Document 06/03/21 09:45 AB (Rec: 06/03/21 13:07 AB [email or web address]) Orientation Orientation/Cognition Level of Alertness Alert Orientation Name,Place,Situation Language Function Ability No Deficits Noted Safety Awareness Understands Safety Issues, Decreased Safety Awareness Memory Description No Deficits Noted Gross Range of Motion Lower Extremity ROM Impairments R knee immobilizer lock 0-40 deg Strength Lower Extremity Strength Assessment Right Impaired Coordination Assessment Gross Coordination Gross Coordination WNL Sensation Assessment Sensation Gross Sensation WNL Muscle Tone Muscle Tone WNL Yes M6 PT-IP Treatment Start: 06/03/21 12:56 Freq: NEEDED Status: Active Protocol: Document 06/03/21 09:45 AB (Rec: 06/03/21 13:07 AB [email or web address]) Physical Therapy Treatment Education Education Provided Precautions,Weight Bearing Status,Safety M7 PT-IP Assessment and Plan Start: 06/03/21 12:56 Freq: NEEDED Status: Active Protocol: Document 06/03/21 09:45 AB (Rec: 06/03/21 13:07 AB [email or web address]) PT Summary Assessment and Plan Potential Rehabilitation Potential Good Status of Condition at Evaluation Stable Summary Impairments Pain,ROM,Strength,Balance, Coordination,Sensation,Tone, Cognition,Bed Mobility, Transfers,Gait,Activity Tolerance Assessment Summary pt requiring SBA with mobility using FWW. pt stated that she had previous surgeries on the same knee and has used the immobilizer and is family with her precautions and use of immobilizer. pt lives with her sister and plans to go home today. pt may go home when medically stable. Goals Bed Mobility Goal Independent Transfer Goal Independent,Front Wheeled Walker Gait Goal Independent,Front Wheel Walker Gait Distance 250 Other Goals up/diown 5 steps B rails mod I Days to Meet Goals 3 Frequency of Treatment Frequency Of Treatment Twice a Day Treatment Plan Physical Therapy Treatment Plan Bed Mobility Training,Transfer Training,Gait Training, Therapeutic Exercise,Balance Retraining,Post Op Education, Discharge Planning,Hot or Cold Pack,Neuromuscular Re-ed, Coordination Retraining,Manual Therapy Precautions Brace R knee immobilizer locked: 0- 40 deg Other Precautions per Dr. Bellamy's note: Use brace most of the time in order to avoid falls and high flexion. Okay to have off for showering as long as she is seated and keeps her leg extended. Avoid high flexion. Weight Bearing Status Weight Bearing Status Weight Bear as Tolerated Allowed Weight Bearing Amount (enter % WBAT RLE or #) (%) Recommendations To Nursing Amount of Assist Needed 1 Person Assist Discharge Recommendations PT Discharge Recommendations Home with Assistance, Outpatient PT Transportation Needs at Discharge Private Vehicle
--- NOTE | 2021-06-03 12:52 | CM.IDA ---
Initial DCP Assessment Note Pt is an 80 yo female, resident of [place], now POD# 1 s/p patellectomy and quadriceps tendon repair by Dr Bellamy PCP: Edison Dowd Payer: Augustus MANRIQUEZ Reviewed chart, pt discussed in multidisciplinary rounds this morning. Therapy has cleared pt for return home w/family to assist and pt has planned for home, DC order from Ortho has already been initiated this morning. Met w/patient introduced role, patient was getting IV removed and eager to return home today. Denied needs from this GIZZARD PEELER No needs from DC planning team. Home w/family and close outpatient f/u ELDA Jamison
== END 2021-06-03 11:30 | disposition home or self-care (01) ==
LOC: OR 12:31 → AC 17:33
PROVIDERS: Family Provider Orthopaedic Surgery; PCP Family Medicine; Referring Provider Orthopaedic Surgery; Visit Provider Orthopaedic Surgery
PROC: 0QSD04Z Reposition Right Patella with Internal Fixation Device, Open Approach (ICD-10-PCS; CPT 27524; principal; 2021-06-02 14:15)
DX: S82.091K Other fracture of right patella, subsequent encounter for closed fracture with nonunion (principal); Z96.651 Presence of right artificial knee joint
CPT/HCPCS: 27381; 27350; 36415; 85014; 85018; 97161; C9290; J0131; J0171; J0690; J1100; J2250; J2405; J2704; J3010

== ENCOUNTER → 2022-12-28 13:52 | Outpatient (CLI) | payer OTHER, SELFPAY ==
[2022-12-14 12:31] VITALS: BMI 36.0
[2022-12-28 14:40] LABS: Add Manual Diff / Slide Review NO; Basophils Absolute Auto 0 /uL (0-100); Basophils Percent Auto 0.8 % (0-2); Eosinophils Absolute Auto 200 /uL (0-450); Eosinophils Percent Auto 4.5 % (2-4); Hemoglobin 13.1 g/dL (12.0-16.0); Lymphocytes Absolute Auto 1500 /uL (1100-4500); Lymphocytes Percent Auto 26.5 % (25-40); Mean Corpuscular HGB Conc 33.6 % (30-36); Mean Corpuscular Hemoglobin 28.7 PG (26-34); Mean Corpuscular Volume 85.4 fL (80-100); Monocytes Absolute Auto 500 /uL (0-900); Monocytes Percent Auto 8.7 % (3-14); Neutrophils Absolute Auto 3300 /uL (1500-7000); Neutrophils Percent Auto 59.5 % (50-75); Platelet Count 248 X10^3/uL (150-400); Red Blood Cell Count 4.56 X10^6/uL (4.0-5.2); Red Cell Distribution Width 14.8 % (11.6-14.8); White Blood Cell Count 5.5 X10^3/uL (4.5-11.0)
[2022-12-28 15:18] LABS: Alanine Aminotransferase 16 IU/L (<35); Albumin Globulin Ratio 1.4 (1.0-2.8); Alkaline Phosphatase 57 U/L (38-126); Aspartate Aminotransferase 25 IU/L (14-36); BUN Creatinine Ratio 19.7 (6-22); Bilirubin Total 0.5 mg/dL (0.2-1.3); Blood Urea Nitrogen 24 mg/dL (7-17); C-Reactive Protein Quant 0.9 mg/dL (<1.0); Calcium 9.7 mg/dL (8.4-10.2); Carbon Dioxide 27 mmol/L (22-32); Chloride 104 mmol/L (98-107); Estimated Glomerular Filt Rate 44 mL/min (>60); Globulin 2.8 g/dL (1.7-4.1); Glucose 95 mg/dL (80-110); HEMOLYSIS < 15 (0-50); Sodium 138 mmol/L (137-145); Total Protein 6.8 g/dL (6.3-8.2)
[2022-12-28 15:44] LABS: TSH w/ Reflex to FT4 2.71 uIU/mL (0.47-4.68)
[2022-12-29 19:57] LABS: Tissue Transglutaminase IgA <2 U/mL (0-3); Tissue Transglutaminase IgG 3 U/mL (0-5)
[2022-12-30 05:00] LABS: HIV 1 & 2 Ab/Ag 4th Gen Combo NEGATIVE (NEGATIVE)
== END ==
PROVIDERS: Family Provider Orthopaedic Surgery; PCP Family Medicine; Referring Provider Family Medicine; Visit Provider Family Medicine
DX: R15.9 Full incontinence of feces (principal); K52.9 Noninfective gastroenteritis and colitis, unspecified; Z00.00 Encounter for general adult medical examination without abnormal findings
CPT/HCPCS: 36415; 80053; 83516; 84443; 85025; 86140; 87389

== ENCOUNTER → 2023-01-01 11:07 | Outpatient (CLI) | payer OTHER, SELFPAY ==
[2022-12-14 12:31] VITALS: BMI 36.0
[2023-01-01 12:47] LABS: Occult Blood 1 Negative (Negative); Occult Blood 2 Negative (Negative); Occult Blood 3 Negative (Negative)
[2023-01-05 14:34] LABS: Calprotectin, Stool 144 ug/g (0-120)
== END ==
PROVIDERS: Family Provider Orthopaedic Surgery; PCP Family Medicine; Referring Provider Family Medicine; Visit Provider Family Medicine
DX: R15.9 Full incontinence of feces (principal); K52.9 Noninfective gastroenteritis and colitis, unspecified
CPT/HCPCS: 82270; 83993; 87045; 87177; 87899

== ENCOUNTER → 2023-03-07 12:48 | Outpatient (CLI) | payer OTHER, SELFPAY ==
[2022-12-14 12:31] VITALS: BMI 36.0
[2023-03-07 13:36] LABS: BUN Creatinine Ratio 21.6 (6-22); Blood Urea Nitrogen 24 mg/dL (7-17); Calcium 9.6 mg/dL (8.4-10.2); Carbon Dioxide 28 mmol/L (22-32); Chloride 105 mmol/L (98-107); Estimated Glomerular Filt Rate 50 mL/min (>60); Glucose 138 mg/dL (80-110); HEMOLYSIS < 15 (0-50); Potassium 4.6 mmol/L (3.4-5.1); Sodium 138 mmol/L (137-145)
== END ==
PROVIDERS: Family Provider Orthopaedic Surgery; PCP Family Medicine; Referring Provider Family Medicine; Visit Provider Family Medicine
DX: N18.9 Chronic kidney disease, unspecified (principal)
CPT/HCPCS: 36415; 80048

== ENCOUNTER → 2023-06-05 09:52 | Outpatient (CLI) | payer OTHER, SELFPAY ==
[2022-12-14 12:31] VITALS: BMI 36.0
--- NOTE | 2023-06-05 09:55 | DI.RAD.S_ITS ---
PROCEDURE: XR HIP W PEL IF DONE BILAT 2V INDICATIONS: Lower Back Pain TECHNIQUE: AP pelvis with lateral view(s) of the bilateral hip(s). COMPARISON: None. FINDINGS: Bones: No fractures or dislocations. Pelvic ring appears intact. No suspicious bony lesions. Moderate bilateral degenerative hip joint space narrowing. Small periarticular osteophytes are present. Degenerative changes are present within the lower lumbar spine. Soft tissues: The visualized bowel gas pattern is normal. No suspicious soft tissue calcifications. IMPRESSION: Arthritic changes within the hips as well as lower lumbar spine. Dictated by: Mis Bates M.D. on 06/05/2023 at 13:18 Approved by: Mis Bates M.D. on 06/05/2023 at 13:22
--- NOTE | 2023-06-05 09:55 | DI.RAD.S_ITS ---
PROCEDURE: XR LUMBAR SPINE 2-3V INDICATIONS: Lower Back Pain TECHNIQUE: 3 views of the lumbar spine were acquired. COMPARISON: None. FINDINGS: Bones: 5 [id number] vertebrae are present. Mild levoconvex curvature of the lower thoracic spine centered at T12 and dextroconvex curvature of the lower lumbar spine centered at L4. No vertebral body compression fractures. Moderate to severe multilevel degenerative changes with osteophytosis, disc height loss and facet arthropathy. There is moderate to severe osseous neural foraminal narrowing at L4-5 and L5-S1. No suspicious bony lesions. Soft tissues: Overlying bowel gas pattern is normal. No suspicious soft tissue calcifications. Calcification of the abdominal aorta. IMPRESSION: 1. No acute bony abnormality. 2. Moderate to severe degenerative changes of the lumbar spine, notably at L4-5 and L5-S1. Dictated by: Mello Brower M.D. on 06/05/2023 at 21:59 Approved by: Mello Broewr M.D. on 06/05/2023 at 22:02
== END ==
LOC: RAD 09:54
PROVIDERS: Family Provider Orthopaedic Surgery; PCP Family Medicine; Referring Provider Family Medicine; Visit Provider Family Medicine
DX: M54.50 Low back pain, unspecified (principal); G89.29 Other chronic pain; M47.816 Spondylosis without myelopathy or radiculopathy, lumbar region
CPT/HCPCS: 72100; 73521

== ENCOUNTER → 2024-03-19 12:56 | Outpatient (CLI) | payer OTHER, SELFPAY ==
[2022-12-14 12:31] VITALS: BMI 36.0
[2024-03-19 14:03] LABS: Hemoglobin 13.4 g/dL (12.0-16.0); Mean Corpuscular HGB Conc 33.5 % (30-36); Mean Corpuscular Hemoglobin 28.9 PG (26-34); Mean Corpuscular Volume 86.1 fL (80-100); Platelet Count 300 X10^3/uL (150-400); Red Blood Cell Count 4.65 X10^6/uL (4.0-5.2); Red Cell Distribution Width 14.1 % (11.6-14.8); White Blood Cell Count 7.1 X10^3/uL (4.5-11.0)
[2024-03-19 14:30] LABS: Alanine Aminotransferase 19 IU/L (<35); Albumin 4.2 g/dL (3.5-5.0); Albumin Globulin Ratio 1.8 (1.0-2.8); Alkaline Phosphatase 71 U/L (38-126); Aspartate Aminotransferase 27 IU/L (14-36); BUN Creatinine Ratio 16.9 (6-22); Bilirubin Total 0.5 mg/dL (0.2-1.3); Blood Urea Nitrogen 21 mg/dL (7-17); Carbon Dioxide 27 mmol/L (22-32); Chloride 104 mmol/L (98-107); Estimated Glomerular Filt Rate 43 mL/min (>60); Globulin 2.3 g/dL (1.7-4.1); Glucose 90 mg/dL (80-110); HEMOLYSIS < 15 (0-50); Magnesium 2.1 mg/dL (1.6-2.3); Potassium 4.7 mmol/L (3.4-5.1); Sodium 137 mmol/L (137-145); Total Protein 6.5 g/dL (6.3-8.2)
[2024-03-19 14:35] LABS: NT-proBNP (BNP-Adult 18+) 282 pg/mL (<450)
== END ==
LOC: LAB 12:57
PROVIDERS: Family Provider Orthopaedic Surgery; PCP Family Medicine; Referring Provider Family Medicine; Visit Provider Family Medicine
DX: R00.0 Tachycardia, unspecified (principal); R60.0 Localized edema
CPT/HCPCS: 36415; 80053; 83735; 83880; 85027

== ENCOUNTER → 2024-04-01 10:20 | Outpatient (CLI) | payer OTHER, SELFPAY ==
[2022-12-14 12:31] VITALS: BMI 36.0
== END ==
LOC: CAR 10:21
PROVIDERS: Family Provider Orthopaedic Surgery; PCP Family Medicine; Referring Provider Family Medicine; Visit Provider Family Medicine
DX: R00.2 Palpitations (principal)
CPT/HCPCS: 93246

== ENCOUNTER → 2024-04-16 08:07 | Outpatient (CLI) | payer OTHER, SELFPAY ==
[2022-12-14 12:31] VITALS: BMI 36.0
--- NOTE | 2024-04-16 08:08 | DI.ECHO.S_ITS ---
[facility] : : [address] : : [place] : : [address] : : Phone: [phone] Echocardiogram Report + + :Name: DEMOND CHRISTIANSON Study Date: 04/16/2024 Height: 64 in : :Hospital ReadingLocation: Weight: 202 lb : : Gender: Female BSA: 2.0 m2 : :: 1940 Age: 83 yrs BP: 129/82 mmHg: :Reason For Study: SYSTOLIC MURMUR : :Ordering Physician: DORY, : :VIANEY Cárdenas Performed By: Marsha Rodriguez : :Referring: VIANEY CONNORS : + + Interpretation Summary Normal biventricular size and systolic function. LVEF is 60-65% Normal atrial sizes. Mild MR and mild-moderate TR are noted. Mild pHTN is present. Other findings as below. No previous echo images are available for comparison. Procedure: A two-dimensional transthoracic echocardiogram with color flow and Doppler was performed. The study quality was technically adequate. There is no prior echocardiogram noted for this patient. The patient was in sinus rhythm with heart rates between 63-91 bpm during the exam. Left Ventricle: The left ventricle is normal in size and wall thickness. The ejection fraction is estimated to be 60-65%. Right Ventricle: The right ventricle is at the upper limits of normal in size. The right ventricular systolic function is normal. Atria: The left atrial size is normal. Right atrial size is normal. There is no Doppler evidence for an interatrial shunt. Mitral Valve: The mitral valve leaflets appear mildly thickened, but open well. There is mild mitral regurgitation. Aortic Valve: The aortic valve is trileaflet. The aortic valve opens well. There is no aortic valve stenosis. No aortic regurgitation is present. Tricuspid Valve: The tricuspid valve leaflets are thin and pliable. There is mild to moderate tricuspid regurgitation. The right ventricular systolic pressure is estimated to be at least 41 mmHg based on an estimated right atrial pressure of 3 mm Hg. Pulmonic Valve: The pulmonic valve leaflets are thin and pliable; valve motion is normal. There is trace pulmonic regurgitation. Great Vessels: The aortic root is normal size. The dimensions of the ascending aorta are normal. The IVC is of normal diameter and collapses greater than 50% with a sniff. This suggests a low right atrial pressure of 3 mm Hg. Pericardium/ Pleura There is no pericardial effusion. There is no pleural effusion. MMode/2D Measurements & Calculations LVIDd: 4.3 cm LVOT diam: 2.0 cm LVIDs: 2.7 cm Ao root diam: 2.7 cm FS: 37.1 % asc Aorta Diam: 3.1 cm EPSS: 0.87 cm Ao Arch Diam (Prox Trans): 3.0 cm IVSd: 0.84 cm LVPWd: 0.92 cm LV rodriguez. diameter/BSA (cm/m^2): 2.2 LV sys. diameter/BSA (cm/m^2): 1.4 LA A2 area: 16.3 cm2 RA long axis: 5.0 cm LA A4 area: 22.5 cm2 RA area: 17.9 cm2 LA length (vol): 5.5 cm RA vol: 54.0 ml LA vol: 56.4 ml RA : 27.5 ml/m2 LA vol index: 28.7 ml/m2 IVC diam: 1.5 cm RVD1 (basal): 4.0 cm RVD2 (mid): 3.2 cm TAPSE: 2.0 cm Doppler Measurements & Calculations Ao V2 max: 159.5 cm/sec LVOT Max Sammy: 93.4 cm/sec Ao V2 mean: 111.8 cm/sec LV V1 max P.5 mmHg Ao max P.2 mmHg LV V1 VTI: 19.1 cm Ao mean P.5 mmHg HARVEY(I,D): 1.6 cm2 Ao V2 VTI: 37.0 cm HARVEY(V,D): 1.9 cm2 sev ratio: 0.52 HARVEY indexed to BSA (cm^2/m^2): 0.83 MV E max sammy: 101.3 cm/sec TR max sammy: 308.1 cm/sec MV A max sammy: 110.8 cm/sec TR max P.0 mmHg MV E/A: 0.91 PA V2 max: 112.0 cm/sec Med Peak E' Sammy: 5.4 cm/sec PA V2 mean: 73.8 cm/sec E/E' med: 18.8 PA mean P.5 mmHg Lat Peak E' Sammy: 9.7 cm/sec PA pr(Accel): 36.2 mmHg E/E' lat: 10.5 E/e' average: 14.6 MV dec time: 0.22 sec SV(LVOT): 60.5 ml Reading Physician:02:06 PM
== END ==
LOC: ECHO 08:07
PROVIDERS: Family Provider Orthopaedic Surgery; PCP Family Medicine; Referring Provider Family Medicine; Visit Provider Family Medicine
DX: R01.1 Cardiac murmur, unspecified (principal); R06.09 Other forms of dyspnea; I08.1 Rheumatic disorders of both mitral and tricuspid valves
CPT/HCPCS: 93306

== ENCOUNTER → 2024-04-27 15:10 | Outpatient (CLI) | payer OTHER, SELFPAY ==
[2022-12-14 12:31] VITALS: BMI 36.0
--- NOTE | 2024-04-27 15:11 | DI.US.S_ITS ---
PROCEDURE: US VENOUS INSUFFICIENCY BILAT INDICATIONS: bilat leg edema TECHNIQUE: Real time scanning was performed of the lower extremity venous system, with imaging documentation, as well as Color and pulse Doppler interrogation. COMPARISON: None. FINDINGS: RIGHT LOWER EXTREMITY: The deep veins are normally compressible, and free of intraluminal thrombus. Color and pulse Doppler demonstrate normal intravascular flow. There is normal augmentation with distal compression maneuver. Greater saphenous vein (GSV): Normally 4 mm or less in diameter, with any reflux less than 0.5 seconds. Saphenofemoral junction (SFJ): 6 mm. Reflux present Proximal GSV: 5 mm. Reflux present Mid GSV: 3 mm. Reflux present Distal GSV: 3 mm. No reflux. Calf GSV: 2 mm, and no reflux. Anterior accessory GSV (AAGSV): Anatomic variant present with reflux in the proximal portion. Small saphenous vein (SSV): Posterior calf, draining into popliteal vein. Posterior calf: 2 mm. No reflux. Vein of Giacomini (posterior thigh connection between GSV and SSV): Anatomic variant not seen. LEFT LOWER EXTREMITY: The deep veins are normally compressible, and free of intraluminal thrombus. Color and pulse Doppler demonstrate normal intravascular flow. There is normal augmentation with distal compression maneuver. Greater saphenous vein (GSV): Normally 4 mm or less in diameter, with any reflux less than 0.5 seconds. Saphenofemoral junction (SFJ): 8 mm. Reflux present Proximal GSV: 3 mm. Reflux present Mid GSV: 3 mm. Reflux present Distal GSV: 3 mm. Reflux present Calf GSV: 3 mm. Reflux present. Anterior accessory GSV (AAGSV): Present, without reflux. Small saphenous vein (SSV): Posterior calf, draining into popliteal vein. Posterior calf: 1 mm. No reflux. Vein of Giacomini (posterior thigh connection between GSV and SSV): Anatomic variant not seen. IMPRESSION: In the right, there is reflux in the saphenofemoral junction, proximal GSV and mid GSV. Anatomic variant present, with reflux in the proximal portion period In the left, there is reflux in the saphenofemoral junction through the calf. Dictated by: Jai Hogan M.D. on 04/28/2024 at 12:01 Approved by: Jai Hogan M.D. on 04/28/2024 at 12:04
== END ==
PROVIDERS: Family Provider Orthopaedic Surgery; PCP Family Medicine; Referring Provider Family Medicine; Visit Provider Family Medicine
DX: I87.2 Venous insufficiency (chronic) (peripheral) (principal); R60.0 Localized edema
CPT/HCPCS: 93970

== ENCOUNTER 2024-06-03 13:00 | Outpatient (RCR) | payer OTHER, SELFPAY ==
[2022-12-14 12:31] VITALS: BMI 36.0
--- NOTE | 2024-05-25 17:00 | PT.OIE ---
Current Diagnoses Pain in right knee (05/25/24) Muscle weakness (generalized) (05/25/24) Other symptoms and signs involving the musculoskeletal system (05/25/24) Aftercare following joint replacement surgery (05/25/24) Past Medical History (Last Updated 06/10/23 @ 14:16 by Chase Wang MD) Bilateral primary osteoarthritis of knee COVID-19 Hammer toes, bilateral History of severe acute respiratory syndrome coronavirus 2 (SARS-CoV-2) disease Hypoxia Intermittent diarrhea Multiple falls Osteoarthritis Restless leg syndrome Skin tag Wears glasses Past Surgical History (Last Updated 04/21/24 @ 16:20 by Chase Wang MD) Anesthesia History of hysterectomy History of orthopedic surgery (04/01/18) History of right knee joint replacement Hx of cataract surgery (07/18/23) Patellar fracture Status post bilateral knee replacements Status post hysterectomy (~1972) Visit Care Team Role Provider Type Chase Wang MD Attending Provider Physician Family Provider Primary Care Provider Referring Provider Specialty: [facility] Address: [address] [place] [address] Email: [email or web address] Physical Therapy Initial Evaluation PT-OP-A Visit Information Start: 05/25/24 17:50 Freq: Status: Active Protocol: Document 05/25/24 16:15 DCW (Rec: 05/25/24 17:52 DCW [id number]) Out-Patient Physical Therapy Visit Information Visit Information Visit Type Initial Evaluation Visit Start Time 16:15 Visit Stop Time 17:00 Visit Number 1 Number of VACUUM SYSTEM TESTER Visits 0 Evaluation Information Evaluation Date 05/25/24 PT-OP-B Current Condition Start: 05/25/24 17:50 Freq: Status: Active Protocol: Document 05/25/24 16:15 DCW (Rec: 05/26/24 12:13 DCW [id number]) Current Condition History of Current Condition Onset Date Multi-year history Current Complaints R knee pain, weakness, repeated falls History of Current Condition Pt is an 83 year old female presenting with complaints of right knee pain/weakness, which has resulted in multiple falls. 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 Reports then in 2016 or 2017, had a fall directly on her right knee, which resulted in a substantial fracture to her patella. Had multiple surgeries over the years to attempt to help decrease knee pain and mobility, with minimal effect. Finally had surgery to remove all the little pieces of her patella. Since then, pt notes her right knee has been quite weak . Knee jose carlos occasionally, uses a cane just in case. Has plans for a trip to [place] in July, hoping to build up strength and stability in her knee before hand. Is considering taking a walker on her trip for stability. Reports she is able to walk two blocks, but unable to walk a mile, experiences increased pain. Prior Treatments and Tests R knee x-ray: IMPRESSION: 1. Right TKA redemonstrated and there is superior displacement of the patellar prosthetic component which is now oriented in in a vertical fashion which has increased from prior examination dated 01/30/2019. The superior patellar osseous fragment is also displaced superiorly with the prosthesis. per Henok Siddiqi RRA Interpreted: Virgil Galo MD on 05/01/2021 PT-OP-C Subjective Start: 05/25/24 17:50 Freq: Status: Active Protocol: Document 05/25/24 16:15 DCW (Rec: 05/26/24 12:13 DCW [id number]) OP-PT Subjective Patient Comments Patient Comments I really want to be able to have a good time in [place] without worrying about my knee . Patient Questionnaires Lower Extremity Functional Scale LEFS Score 31/80 = 38.75% LEFS Impairment 60 to 79% Impaired (Score 17- 31) OP-PT Pain Assessment Location Right Knee Intensity 3 Scale Used Numeric (0 - 10) PT-OP-E Functional Tests Start: 05/25/24 17:50 Freq: Status: Active Protocol: Document 05/25/24 16:15 DCW (Rec: 05/26/24 12:13 DCW [id number]) Functional Tests Dynamic Gait Index (DGI) Score 16/24 DGI Impairment Rating 20 to <40% Impaired (Score 15- 19) Five Times Sit to Stand Test Score 17.70 Comments Use of UEs PT-OP-M Strength Start: 05/25/24 17:50 Freq: Status: Active Protocol: Document 05/25/24 16:15 DCW (Rec: 05/26/24 12:13 DCW [id number]) Hip Strength Hip Manual Muscle Testing Right Flexion (L2) 4 Good Abduction 4 Good Adduction 4- Good- External Rotation 4 Good Internal Rotation 4 Good Left Flexion (L2) 4 Good Abduction 4 Good Adduction 4- Good- External Rotation 4 Good Internal Rotation 4 Good Knee Strength Knee Manual Muscle Testing Right Flexion (S2) 5 Normal Extension (L3) 3+ Fair+ Left Flexion (S2) 5 Normal Extension (L3) 5 Normal Ankle/Foot Strength Ankle and Foot Manual Muscle Testing Right Dorsiflexion (L4) 4+ Good+ Left Dorsiflexion (L4) 4+ Good+ PT-OP-Q Treatments Start: 05/25/24 17:50 Freq: Status: Active Protocol: Document 05/25/24 16:15 DCW (Rec: 05/25/24 17:52 DCW [id number]) Therapeutic Exercises Standing Exercises TKE Standing Exercise Name TKE Side right Resistance Lv 2 PT-OP-T Assessment and Plan Start: 05/25/24 17:50 Freq: Status: Active Protocol: Document 05/25/24 16:15 DCW (Rec: 05/26/24 13:48 DCW [id number]) Physical Therapy Assessment Rehab Potential Rehabilitation Potential Fair Evaluation Complexity Number of Personal Factors/Comorbidities 3 or More Number of Body Systems Impaired 4 or More Clinical Presentation at Evaluation Unstable Impairments Impairments Activity Tolerance,Balance, Functional Activities, Functional Mobility,Gait,Pain, Soft Tissue Mobility,Strength Goals Three Impairment DGI score of 16/24 indicates increased risk of falls Hand Knitter Goal (LTG) Pt to improve DGI score by at least four points to 20/24 in order to demonstrate decreased risk of falls. LTG Duration 08/23/24 Two Impairment Pt exhibits right knee extension weakness (3+/5) Care Home Goal (LTG) Pt to demonstrate improved right knee extension MMT to at least 4/5 in order to improve joint stability and decrease risk of knee buckling LTG Duration 08/23/24 One Impairment Pt does not have an appropriate HEP Short Term Goal (STG) Pt to be independent and compliant with an appropriate HEP STG Duration 06/25/24 Assessment Summary Assessment Pt presents with signs and symptoms consistent with referring diagnosis. Pt demonstrates fairly significant loss of functional strength with right knee extension, likely secondary to change in forces on patella tendon insertion secondary to damage of patella, resulting in quad contraction causing a superior pull on the tibia instead of an anterior pull. Pt should benefit from skilled therapy focusing on LE/quad strengthening, balance challenges, gait training, and increased activity tolerance in order to decrease falls risk and improve pt's ability to participate in her upcoming vacation to [place]. Physical Therapy Plan Frequency and Duration Frequency of Treatment 2x/Week Plan of Care Start Date 05/25/24 Plan of Care End Date 08/23/24 Therapeutic Interventions Therapeutic Interventions Balance Training,Coordination Training,Gait Training,Home Exercise Program,Joint Mobilizations,Manual Therapy, Neuromuscular Re-education, Patient/Caregiver Education, Self-Care/Home Management,Soft Tissue Mobilization,Taping, Therapeutic Activities, Therapeutic Exercises Next Visit Focus/Plan Next Note Type Treatment Note Next Visit Plan Quad strengthening, dynamic/ static balance challenges
--- NOTE | 2024-05-28 16:55 | PT.OTN ---
Current Diagnoses Pain in right knee (05/28/24) Muscle weakness (generalized) (05/28/24) Other symptoms and signs involving the musculoskeletal system (05/28/24) Aftercare following joint replacement surgery (05/28/24) Physical Therapy Treatment Note PT-OP-A Visit Information Start: 05/25/24 17:50 Freq: Status: Active Protocol: Document 05/28/24 16:15 DCW (Rec: 05/28/24 16:55 DCW [id number]) Out-Patient Physical Therapy Visit Information Visit Information Visit Type Treatment Note Visit Start Time 16:15 Visit Stop Time 17:00 Visit Number 2 Number of CAR SHAGGER Visits 0 Evaluation Information Evaluation Date 05/25/24 PT-OP-B Current Condition Start: 05/25/24 17:50 Freq: Status: Active Protocol: Document 05/25/24 16:15 DCW (Rec: 05/26/24 12:13 DCW [id number]) Current Condition History of Current Condition Onset Date Multi-year history Current Complaints R knee pain, weakness, repeated falls History of Current Condition Pt is an 83 year old female presenting with complaints of right knee pain/weakness, which has resulted in multiple falls. 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 Reports then in 2015 or 2016, had a fall directly on her right knee, which resulted in a substantial fracture to her patella. Had multiple surgeries over the years to attempt to help decrease knee pain and mobility, with minimal effect. Finally had surgery to remove all the little pieces of her patella. Since then, pt notes her right knee has been quite weak . Knee jose carlos occasionally, uses a cane just in case. Has plans for a trip to [place] in July, hoping to build up strength and stability in her knee before hand. Is considering taking a walker on her trip for stability. Reports she is able to walk two blocks, but unable to walk a mile, experiences increased pain. Prior Treatments and Tests R knee x-ray: IMPRESSION: 1. Right TKA redemonstrated and there is superior displacement of the patellar prosthetic component which is now oriented in in a vertical fashion which has increased from prior examination dated 01/30/2019. The superior patellar osseous fragment is also displaced superiorly with the prosthesis. per Henok Siddiqi RREvelin Interpreted: Virgil Galo MD on 05/01/2021 PT-OP-C Subjective Start: 05/25/24 17:50 Freq: Status: Active Protocol: Document 05/28/24 16:15 DCW (Rec: 05/28/24 16:55 DCW [id number]) OP-PT Subjective Patient Comments Patient Comments Pt feeling alright today, no new complaints. PT-OP-E Functional Tests Start: 05/25/24 17:50 Freq: Status: Active Protocol: Document 05/25/24 16:15 DCW (Rec: 05/26/24 12:13 DCW [id number]) Functional Tests Dynamic Gait Index (DGI) Score 1624 DGI Impairment Rating 20 to <40% Impaired (Score 15- 19) Five Times Sit to Stand Test Score 17.70 Comments Use of UEs PT-OP-M Strength Start: 05/25/24 17:50 Freq: Status: Active Protocol: Document 05/25/24 16:15 DCW (Rec: 05/26/24 12:13 DCW [id number]) Hip Strength Hip Manual Muscle Testing Right Flexion (L2) 4 Good Abduction 4 Good Adduction 4- Good- External Rotation 4 Good Internal Rotation 4 Good Left Flexion (L2) 4 Good Abduction 4 Good Adduction 4- Good- External Rotation 4 Good Internal Rotation 4 Good Knee Strength Knee Manual Muscle Testing Right Flexion (S2) 5 Normal Extension (L3) 3+ Fair+ Left Flexion (S2) 5 Normal Extension (L3) 5 Normal Ankle/Foot Strength Ankle and Foot Manual Muscle Testing Right Dorsiflexion (L4) 4+ Good+ Left Dorsiflexion (L4) 4+ Good+ PT-OP-Q Treatments Start: 05/25/24 17:50 Freq: Status: Active Protocol: Document 05/28/24 16:15 DCW (Rec: 05/28/24 16:55 DCW [id number]) Cardio Equipment Recumbent Stepper (Sci-Fit) Duration (Minutes) 5 Resistance 3 Seat Position 11 Gym Equipment Shuttle Recovery Unilateral Squats Resistance 37# Shuttle Recovery Platform Stable Bilateral Squats Resistance 62# Shuttle Recovery Platform Stable Therapeutic Exercises Sitting Exercises LAQ Sitting Exercise Name LAQ Side bilateral Resistance 5# Standing Exercises Hamstring Curls Standing Exercise Name Hamstring Curls Side bilateral Resistance 5# Step-ups Standing Exercise Name Step-ups Side bilateral Equipment Used 4 step Other Exercises Resisted Ambulation Other Exercise Name Resisted side-stepping Resistance Lv 2 loop Neuro Re-Education Treatment Balance Activities Hurdles Details Hurdles Equipment // bars Comments Fwd, side-stepping PT-OP-T Assessment and Plan Start: 05/25/24 17:50 Freq: Status: Active Protocol: Document 05/28/24 16:15 DCW (Rec: 05/28/24 16:55 DCW [id number]) Physical Therapy Assessment Impairments Impairments Activity Tolerance,Balance, Functional Activities, Functional Mobility,Gait,Pain, Soft Tissue Mobility,Strength Goals Three Impairment DGI score of 16/24 indicates increased risk of falls Senior Quality Analyst Goal (LTG) Pt to improve DGI score by at least four points to 20/24 in order to demonstrate decreased risk of falls. LTG Duration 08/23/24 Two Impairment Pt exhibits right knee extension weakness (3+/5) Senior Quality Analyst Goal (LTG) Pt to demonstrate improved right knee extension MMT to at least 4/5 in order to improve joint stability and decrease risk of knee buckling LTG Duration 08/23/24 One Impairment Pt does not have an appropriate HEP Short Term Goal (STG) Pt to be independent and compliant with an appropriate HEP STG Duration 06/25/24 Assessment Summary Assessment Pt tolerated very well, was quite fatigued by end of session, but able to fully participate and denied need for rest break multiple times. Showing good functional mobility, continue to focus on right quad strengthening, knee stabilization, activity tolerance, and balance. Physical Therapy Plan Frequency and Duration Frequency of Treatment 2x/Week Plan of Care Start Date 05/25/24 Plan of Care End Date 08/23/24 Therapeutic Interventions Therapeutic Interventions Balance Training,Coordination Training,Gait Training,Home Exercise Program,Joint Mobilizations,Manual Therapy, Neuromuscular Re-education, Patient/Caregiver Education, Self-Care/Home Management,Soft Tissue Mobilization,Taping, Therapeutic Activities, Therapeutic Exercises Next Visit Focus/Plan Next Note Type Treatment Note Next Visit Plan Quad strengthening, dynamic/ static balance challenges
--- NOTE | 2024-06-01 13:00 | PT.OTN ---
Current Diagnoses Pain in right knee (06/01/24) Muscle weakness (generalized) (06/01/24) Other symptoms and signs involving the musculoskeletal system (06/01/24) Aftercare following joint replacement surgery (06/01/24) Physical Therapy Treatment Note PT-OP-A Visit Information Start: 05/25/24 17:50 Freq: Status: Active Protocol: Document 06/01/24 12:15 DCW (Rec: 06/01/24 13:00 DCW [id number]) Out-Patient Physical Therapy Visit Information Visit Information Visit Type Treatment Note Visit Start Time 12:15 Visit Stop Time 13:00 Visit Number 3 Number of DENTAL HYGIENE INSTRUCTOR Visits 0 Evaluation Information Evaluation Date 05/25/24 PT-OP-B Current Condition Start: 05/25/24 17:50 Freq: Status: Active Protocol: Document 05/25/24 16:15 DCW (Rec: 05/26/24 12:13 DCW [id number]) Current Condition History of Current Condition Onset Date Multi-year history Current Complaints R knee pain, weakness, repeated falls History of Current Condition Pt is an 83 year old female presenting with complaints of right knee pain/weakness, which has resulted in multiple falls. 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 Reports then in 2015 or 2016, had a fall directly on her right knee, which resulted in a substantial fracture to her patella. Had multiple surgeries over the years to attempt to help decrease knee pain and mobility, with minimal effect. Finally had surgery to remove all the little pieces of her patella. Since then, pt notes her right knee has been quite weak . Knee jose carlos occasionally, uses a cane just in case. Has plans for a trip to [place] in July, hoping to build up strength and stability in her knee before hand. Is considering taking a walker on her trip for stability. Reports she is able to walk two blocks, but unable to walk a mile, experiences increased pain. Prior Treatments and Tests R knee x-ray: IMPRESSION: 1. Right TKA redemonstrated and there is superior displacement of the patellar prosthetic component which is now oriented in in a vertical fashion which has increased from prior examination dated 01/30/2019. The superior patellar osseous fragment is also displaced superiorly with the prosthesis. per Henok Siddiqi RREvelin Interpreted: Virgil Galo MD on 05/01/2021 PT-OP-C Subjective Start: 05/25/24 17:50 Freq: Status: Active Protocol: Document 06/01/24 12:15 DCW (Rec: 06/01/24 13:00 DCW [id number]) OP-PT Subjective Patient Comments Patient Comments I surprisingly wasn't stiff and sore after that workout last week. PT-OP-E Functional Tests Start: 05/25/24 17:50 Freq: Status: Active Protocol: Document 05/25/24 16:15 DCW (Rec: 05/26/24 12:13 DCW [id number]) Functional Tests Dynamic Gait Index (DGI) Score 16 DGI Impairment Rating 20 to <40% Impaired (Score 15- 19) Five Times Sit to Stand Test Score 17.70 Comments Use of UEs PT-OP-M Strength Start: 05/25/24 17:50 Freq: Status: Active Protocol: Document 05/25/24 16:15 DCW (Rec: 05/26/24 12:13 DCW [id number]) Hip Strength Hip Manual Muscle Testing Right Flexion (L2) 4 Good Abduction 4 Good Adduction 4- Good- External Rotation 4 Good Internal Rotation 4 Good Left Flexion (L2) 4 Good Abduction 4 Good Adduction 4- Good- External Rotation 4 Good Internal Rotation 4 Good Knee Strength Knee Manual Muscle Testing Right Flexion (S2) 5 Normal Extension (L3) 3+ Fair+ Left Flexion (S2) 5 Normal Extension (L3) 5 Normal Ankle/Foot Strength Ankle and Foot Manual Muscle Testing Right Dorsiflexion (L4) 4+ Good+ Left Dorsiflexion (L4) 4+ Good+ PT-OP-Q Treatments Start: 05/25/24 17:50 Freq: Status: Active Protocol: Document 06/01/24 12:15 DCW (Rec: 06/01/24 13:00 DCW [id number]) Cardio Equipment Recumbent Stepper (Sci-Fit) Duration (Minutes) 5 Resistance 3 Seat Position 11 Gym Equipment Shuttle Recovery Unilateral Squats Resistance 37# Shuttle Recovery Platform Stable Bilateral Squats Resistance 75# Shuttle Recovery Platform Stable Therapeutic Exercises Standing Exercises Mini Squats Standing Exercise Name Mini Squats Side bilateral Equipment Used // bars Hip Extension Standing Exercise Name Hip Extension Side bilateral Resistance Green loop Step-ups Standing Exercise Name Step-ups/downs Side bilateral Equipment Used 4 step Other Exercises Resisted Ambulation Other Exercise Name Resisted side-stepping Resistance Green loop Neuro Re-Education Treatment Balance Activities SLS Details SLS Surface AirEx Comments UE support Tilt Board Details Tilt Board Comments Lateral weight-shift PT-OP-T Assessment and Plan Start: 05/25/24 17:50 Freq: Status: Active Protocol: Document 06/01/24 12:15 DCW (Rec: 06/01/24 13:00 DCW [id number]) Physical Therapy Assessment Impairments Impairments Activity Tolerance,Balance, Functional Activities, Functional Mobility,Gait,Pain, Soft Tissue Mobility,Strength Goals Three Impairment DGI score of 16/24 indicates increased risk of falls Newscast Producer Goal (LTG) Pt to improve DGI score by at least four points to 20/24 in order to demonstrate decreased risk of falls. LTG Duration 08/23/24 Two Impairment Pt exhibits right knee extension weakness (3+/5) Newscast Producer Goal (LTG) Pt to demonstrate improved right knee extension MMT to at least 4/5 in order to improve joint stability and decrease risk of knee buckling LTG Duration 08/23/24 One Impairment Pt does not have an appropriate HEP Short Term Goal (STG) Pt to be independent and compliant with an appropriate HEP STG Duration 06/25/24 Assessment Summary Assessment Continues to respond well to treatment, able to demonstrate fairly good control with ascending stairs, does struggle more with eccentric control. Continue to focus on quad/knee strengthening and joint stability. Physical Therapy Plan Frequency and Duration Frequency of Treatment 2x/Week Plan of Care Start Date 05/25/24 Plan of Care End Date 08/23/24 Therapeutic Interventions Therapeutic Interventions Balance Training,Coordination Training,Gait Training,Home Exercise Program,Joint Mobilizations,Manual Therapy, Neuromuscular Re-education, Patient/Caregiver Education, Self-Care/Home Management,Soft Tissue Mobilization,Taping, Therapeutic Activities, Therapeutic Exercises Next Visit Focus/Plan Next Note Type Treatment Note Next Visit Plan Quad strengthening, dynamic/ static balance challenges
--- NOTE | 2024-06-03 13:45 | PT.OTN ---
Current Diagnoses Pain in right knee (06/03/24) Muscle weakness (generalized) (06/03/24) Other symptoms and signs involving the musculoskeletal system (06/03/24) Aftercare following joint replacement surgery (06/03/24) Physical Therapy Treatment Note PT-OP-A Visit Information Start: 05/25/24 17:50 Freq: Status: Active Protocol: Document 06/03/24 13:04 SP (Rec: 06/03/24 13:46 SP [id number]) Out-Patient Physical Therapy Visit Information Visit Information Visit Type Treatment Note Visit Note Pt in bathroom after arrived. Visit Start Time 13:06 Visit Stop Time 13:45 Visit Number 4 Number of [employer] MEMBER Visits 1 Evaluation Information Evaluation Date 05/25/24 PT-OP-B Current Condition Start: 05/25/24 17:50 Freq: Status: Active Protocol: Document 05/25/24 16:15 DCW (Rec: 05/26/24 12:13 DCW [id number]) Current Condition History of Current Condition Onset Date Multi-year history Current Complaints R knee pain, weakness, repeated falls History of Current Condition Pt is an 83 year old female presenting with complaints of right knee pain/weakness, which has resulted in multiple falls. 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 Reports then in 2015 or 2016, had a fall directly on her right knee, which resulted in a substantial fracture to her patella. Had multiple surgeries over the years to attempt to help decrease knee pain and mobility, with minimal effect. Finally had surgery to remove all the little pieces of her patella. Since then, pt notes her right knee has been quite weak . Knee jose carlos occasionally, uses a cane just in case. Has plans for a trip to [place] in July, hoping to build up strength and stability in her knee before hand. Is considering taking a walker on her trip for stability. Reports she is able to walk two blocks, but unable to walk a mile, experiences increased pain. Prior Treatments and Tests R knee x-ray: IMPRESSION: 1. Right TKA redemonstrated and there is superior displacement of the patellar prosthetic component which is now oriented in in a vertical fashion which has increased from prior examination dated 01/30/2019. The superior patellar osseous fragment is also displaced superiorly with the prosthesis. per Henok Siddiqi RRA Interpreted: Virgil Galo MD on 05/01/2021 PT-OP-C Subjective Start: 05/25/24 17:50 Freq: Status: Active Protocol: Document 06/03/24 13:04 SP (Rec: 06/03/24 13:46 SP [id number]) OP-PT Subjective Patient Comments Patient Comments Pt reported only doing 1 stretch for home, wants more strengthening for home, hoping not to be doing PT for very long. PT-OP-E Functional Tests Start: 05/25/24 17:50 Freq: Status: Active Protocol: Document 05/25/24 16:15 DCW (Rec: 05/26/24 12:13 DCW [id number]) Functional Tests Dynamic Gait Index (DGI) Score 16/24 DGI Impairment Rating 20 to <40% Impaired (Score 15- 19) Five Times Sit to Stand Test Score 17.70 Comments Use of UEs PT-OP-M Strength Start: 05/25/24 17:50 Freq: Status: Active Protocol: Document 05/25/24 16:15 DCW (Rec: 05/26/24 12:13 DCW [id number]) Hip Strength Hip Manual Muscle Testing Right Flexion (L2) 4 Good Abduction 4 Good Adduction 4- Good- External Rotation 4 Good Internal Rotation 4 Good Left Flexion (L2) 4 Good Abduction 4 Good Adduction 4- Good- External Rotation 4 Good Internal Rotation 4 Good Knee Strength Knee Manual Muscle Testing Right Flexion (S2) 5 Normal Extension (L3) 3+ Fair+ Left Flexion (S2) 5 Normal Extension (L3) 5 Normal Ankle/Foot Strength Ankle and Foot Manual Muscle Testing Right Dorsiflexion (L4) 4+ Good+ Left Dorsiflexion (L4) 4+ Good+ PT-OP-Q Treatments Start: 05/25/24 17:50 Freq: Status: Active Protocol: Document 06/03/24 13:04 SP (Rec: 06/03/24 13:46 SP [id number]) Gym Equipment Shuttle Recovery Unilateral Squats Resistance 37# 1 navy band Shuttle Recovery Platform Stable Reps/Time x15 Bilateral Squats Resistance 75# 3 navy band Shuttle Recovery Platform Stable Reps/Time x15 Therapeutic Exercises Sitting Exercises LAQ Sitting Exercise Name LAQ Side bilateral Resistance TB#2 aroun 1 ankle, under other foot Reps/Minutes x10 Comments cued TKE, no pain good tiring challenge Standing Exercises Mini Squats Standing Exercise Name Mini Squats- added to HEp with HO Side bilateral Equipment Used rail Hip Extension Standing Exercise Name Hip Extension- added toHEp with HO Side bilateral Resistance Green loop inPT (Teal home) Equipment Used rail support Reps/Minutes x10 each LE Comments cued knee straight Hamstring Curls Standing Exercise Name Hamstring Curls- added to HEP with HO Side bilateral Resistance 5# leg wt in PT (teal loop around ankles) Equipment Used rail support Reps/Minutes x10 each LE Comments cued knee bend range can, good HS tiring Neuro Re-Education Treatment Balance Activities Foam Details WBOS, NBOS, Stride Stance Equipment marble foam near rail Comments HTs: WBOS, Stride stance EC: wbos 30 sec Strice Stance: L ft fwd30 sec, R ft fwd 27 sec Hurdles Details Hurdles Equipment PRN rail Reps/Duration 2 laps Comments Fwd receiprocal stepping, CGA/ min A with GB PT-OP-T Assessment and Plan Start: 05/25/24 17:50 Freq: Status: Active Protocol: Document 06/03/24 13:04 SP (Rec: 06/03/24 13:46 SP [id number]) Physical Therapy Assessment Goals Three Impairment DGI score of 16/24 indicates increased risk of falls Canvas Worker Goal (LTG) Pt to improve DGI score by at least four points to 20/24 in order to demonstrate decreased risk of falls. LTG Duration 08/23/24 Two Impairment Pt exhibits right knee extension weakness (3+/5) Canvas Worker Goal (LTG) Pt to demonstrate improved right knee extension MMT to at least 4/5 in order to improve joint stability and decrease risk of knee buckling LTG Duration 08/23/24 One Impairment Pt does not have an appropriate HEP Short Term Goal (STG) Pt to be independent and compliant with an appropriate HEP STG Duration 06/25/24 Assessment Summary Assessment Pt good tolerance use of teal theraband during ther ex for carryover home and provided HOs for review and self compliance. Progressed balance activities today with less UE support, CG/Min A as needed cues for posture, TA & Rhomboid and wt shift over stance LE decreased UE support . Physical Therapy Plan Frequency and Duration Frequency of Treatment 2x/Week Plan of Care Start Date 05/25/24 Plan of Care End Date 08/23/24 Therapeutic Interventions Therapeutic Interventions Balance Training,Coordination Training,Gait Training,Home Exercise Program,Joint Mobilizations,Manual Therapy, Neuromuscular Re-education, Patient/Caregiver Education, Self-Care/Home Management,Soft Tissue Mobilization,Taping, Therapeutic Activities, Therapeutic Exercises Next Visit Focus/Plan Next Note Type Treatment Note Next Visit Plan REcheck HEP as needed, ask tolerance TB home. POC: Quad strengthening, dynamic/static balance challenges
--- NOTE | 2024-06-15 15:00 | PT.OPDS ---
Current Diagnoses Pain in right knee (06/03/24) Muscle weakness (generalized) (06/03/24) Other symptoms and signs involving the musculoskeletal system (06/03/24) Aftercare following joint replacement surgery (06/03/24) Visit Care Team Role Provider Type Chase Wang MD Attending Provider Physician Family Provider Primary Care Provider Referring Provider Specialty: [facility] Address: [address] [place] [address], [facility] Email: [email or web address] Visit Number Visit Number 4 Discharge Summary PT-OP-B Current Condition Start: 05/25/24 17:50 Freq: Status: Active Protocol: Document 05/25/24 16:15 DCW (Rec: 05/26/24 12:13 DCW [id number]) Current Condition History of Current Condition Onset Date Multi-year history Current Complaints R knee pain, weakness, repeated falls History of Current Condition Pt is an 83 year old female presenting with complaints of right knee pain/weakness, which has resulted in multiple falls. 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 Reports then in 2015 or 2016, had a fall directly on her right knee, which resulted in a substantial fracture to her patella. Had multiple surgeries over the years to attempt to help decrease knee pain and mobility, with minimal effect. Finally had surgery to remove all the little pieces of her patella. Since then, pt notes her right knee has been quite weak . Knee jose carlos occasionally, uses a cane just in case. Has plans for a trip to [place] in July, hoping to build up strength and stability in her knee before hand. Is considering taking a walker on her trip for stability. Reports she is able to walk two blocks, but unable to walk a mile, experiences increased pain. Prior Treatments and Tests R knee x-ray: IMPRESSION: 1. Right TKA redemonstrated and there is superior displacement of the patellar prosthetic component which is now oriented in in a vertical fashion which has increased from prior examination dated 01/30/2019. The superior patellar osseous fragment is also displaced superiorly with the prosthesis. per Henok Siddiqi RRA Interpreted: Virgil Galo MD on 05/01/2021 PT-OP-C Subjective Start: 05/25/24 17:50 Freq: Status: Active Protocol: Document 06/03/24 13:04 SP (Rec: 06/03/24 13:46 SP [id number]) OP-PT Subjective Patient Comments Patient Comments Pt reported only doing 1 stretch for home, wants more strengthening for home, hoping not to be doing PT for very long. PT-OP-E Functional Tests Start: 05/25/24 17:50 Freq: Status: Active Protocol: Document 05/25/24 16:15 DCW (Rec: 05/26/24 12:13 DCW [id number]) Functional Tests Dynamic Gait Index (DGI) Score 16/24 DGI Impairment Rating 20 to <40% Impaired (Score 15- 19) Five Times Sit to Stand Test Score 17.70 Comments Use of UEs PT-OP-M Strength Start: 05/25/24 17:50 Freq: Status: Active Protocol: Document 05/25/24 16:15 DCW (Rec: 05/26/24 12:13 DCW [id number]) Hip Strength Hip Manual Muscle Testing Right Flexion (L2) 4 Good Abduction 4 Good Adduction 4- Good- External Rotation 4 Good Internal Rotation 4 Good Left Flexion (L2) 4 Good Abduction 4 Good Adduction 4- Good- External Rotation 4 Good Internal Rotation 4 Good Knee Strength Knee Manual Muscle Testing Right Flexion (S2) 5 Normal Extension (L3) 3+ Fair+ Left Flexion (S2) 5 Normal Extension (L3) 5 Normal Ankle/Foot Strength Ankle and Foot Manual Muscle Testing Right Dorsiflexion (L4) 4+ Good+ Left Dorsiflexion (L4) 4+ Good+ PT-OP-T Assessment and Plan Start: 05/25/24 17:50 Freq: Status: Active Protocol: Document 06/15/24 14:59 DCW (Rec: 06/15/24 15:00 DCW [id number]) Physical Therapy Assessment Assessment Summary Assessment Pt phoned clinic to cancel remaining appointments, reports she is good to go for independent HEP. Discharge from skilled PT at this time. Physical Therapy Plan Discharge Physical Therapy Discharge Reasons Patient Request Next Visit Focus/Plan Next Note Type Discharge Summary
== END 2024-06-19 12:49 | disposition home or self-care (01) ==
LOC: PHYS 13:00
PROVIDERS: Family Provider Family Medicine; PCP Family Medicine; Referring Provider Family Medicine; Visit Provider Family Medicine
DX: R29.898 Other symptoms and signs involving the musculoskeletal system (principal); M25.561 Pain in right knee; M62.81 Muscle weakness (generalized); Z47.1 Aftercare following joint replacement surgery
CPT/HCPCS: 97110; 97112; 97140; 97163

== ENCOUNTER 2024-12-25 17:11 | Emergency (ER) | payer OTHER, SELFPAY ==
[2022-12-14 12:31] VITALS: BMI 36.0
[2024-12-25] VITALS (10 sets, daily range): BP systolic 131–153; BP diastolic 63–92; PULSE 75–171; RESP 22–42; TEMP 36.9; O2SAT 94–97; BMI 36.9
--- NOTE | 2024-12-25 17:16 | EKG_ITS ---
[facility] [address] [place] [address] Test Date: 2024-12-25 Pat Name: Catrachita Bellamy Department: [facility] Room: Gender: Female Mental Health Coordinator: [facility] [place] : 1940 Requested By: Order Number: [id number] Reading MD: David Us MD Measurements Intervals [place] Rate: 156 P: MA: QRS: 32 QRSD: 80 T: 171 QT: 298 QTc: 480 Interpretive Statements Critical Test Result: High HR Supraventricular tachycardia Marked ST abnormality, possible lateral subendocardial injury Electronically Signed On 12-26-2024 8:49:55 PDT by David Us MD
--- NOTE | 2024-12-25 17:16 | DI.RAD.S_ITS ---
PROCEDURE: XR CHEST 1V INDICATIONS: Chest Pain TECHNIQUE: One view of the chest was acquired. COMPARISON: [facility], CR, XR CHEST 1V, 10/22/2020, 16:56. FINDINGS: Surgical changes and devices: None. Lungs and pleura: Lungs are clear. No pleural effusions or pneumothorax. Mediastinum: Mediastinal contours appear normal. Heart size is prominent. Bones and chest wall: No suspicious bony lesions. Overlying soft tissues appear unremarkable. IMPRESSION: No acute pulmonary process. Dictated by: Mis Bates M.D. on 12/25/2024 at 18:04 Approved by: Mis Bates M.D. on 12/25/2024 at 18:05
--- NOTE | 2024-12-25 17:31 | EKG_ITS ---
[address] [address] Test Date: 2024-12-25 Pat Name: Catrachita Bellamy Department: [facility] Room: Gender: Female Electronic Prepress System Operator: [facility] [place] : 1940 Requested By: Order Number: [id number] Reading MD: David Us MD Measurements Intervals [place] Rate: 95 P: 49 MA: 184 QRS: 7 QRSD: 84 T: 25 QT: 352 QTc: 442 Interpretive Statements Normal sinus rhythm Electronically Signed On 12-26-2024 8:49:56 PDT by David Us MD
--- NOTE | 2024-12-25 17:39 | PC.NURSE ---
prior to giving medications, patient self converted herself to a normal sinus rhythm. Provider aware. new EKG given
[2024-12-25 17:40] LABS: Add Manual Diff / Slide Review NO; Hematocrit 39.9 % (36-46); Hemoglobin 13.2 g/dL (12.0-16.0); Lymphocytes Absolute Auto 2500 /uL (1100-4500); Mean Corpuscular HGB Conc 33.1 % (30-36); Mean Corpuscular Hemoglobin 28.7 PG (26-34); Mean Corpuscular Volume 86.5 fL (80-100); Platelet Count 260 X10^3/uL (150-400)
[2024-12-25 17:48] LABS: INR 0.9 (0.9-1.3); Prothrombin Time 10.4 SECONDS (9.4-12.5)
[2024-12-25 17:50] LABS: PTT Partial Thromboplastin Tim 34 SECONDS (25.1-36.5)
[2024-12-25 17:53] LABS: Alanine Aminotransferase 19 IU/L (<35); Albumin 4.4 g/dL (3.5-5.0); Albumin Globulin Ratio 1.6 (1.0-2.8); Alkaline Phosphatase 57 U/L (38-126); Blood Urea Nitrogen 29 mg/dL (7-17); Calcium 9.4 mg/dL (8.4-10.2); Carbon Dioxide 24 mmol/L (22-32); Chloride 105 mmol/L (98-107); Creatine Kinase 76 U/L (30-135); Estimated Glomerular Filt Rate 38 mL/min (>60); Globulin 2.8 g/dL (1.7-4.1); Glucose 125 mg/dL (70-99); HEMOLYSIS < 15 (0-50); Lipase 146 U/L (23-300); Magnesium 2.1 mg/dL (1.6-2.3); Potassium 4.3 mmol/L (3.4-5.1); Sodium 138 mmol/L (137-145); Total Protein 7.2 g/dL (6.3-8.2)
[2024-12-25 18:04] LABS: NT-proBNP (BNP-Adult 18+) 425 pg/mL (<450); Troponin I 0.013 ng/mL (0.01-0.034)
--- NOTE | 2024-12-25 19:32 | ED.ARRPALP ---
HPI - Arrhythmia/Palpitations General Chief Complaint: Arrhythmia/Palpitations Stated Complaint: racing HR above 166 when symptoms noticed Time Seen by Provider: 12/25/24 17:19 Source: patient Mode of arrival: Ambulatory History of Present Illness HPI narrative: 84-year-old woman with minimal medical problems, currently on no significant medications presents with acute onset palpitations with heart rate in the 160s. She has had this happened previously and it usually spontaneously resolves within minutes. This has been ongoing for a couple of hours. She says she has fairly regular exertional dyspnea that is not any worse with this couple of hours of significant tachycardia. Otherwise no chest pain, nausea, vomiting, lower extremity edema, orthopnea. Related Data Previous Rx's ?Medication ?Instructions ?Recorded acetaminophen 325 mg tablet 650 mg (2 x 325 mg) PO TID #180 06/03/21 tabs Disabled Parking See Rx Instructions .Route 06/05/23 .COMPLEX #365 days Allergies Allergy/AdvReac Type Severity Reaction Status Date / Time Sulfa (Sulfonamide AdvReac Nausea Verified 12/25/24 17:30 Antibiotics) Review of Systems Review of Systems Narrative: Pertinent positive and negative findings as per HPI Patient History Medical History COVID-19 Multiple falls Osteoarthritis History of severe acute respiratory syndrome coronavirus 2 (SARS-CoV-2) disease Hypoxia Wears glasses Restless leg syndrome Skin tag Intermittent diarrhea Hammer toes, bilateral Bilateral primary osteoarthritis of knee Surgical History History of hysterectomy Hx of cataract surgery (07/18/23) History of orthopedic surgery (04/01/18) History of right knee joint replacement Anesthesia Patellar fracture Status post hysterectomy (~1972) Status post bilateral knee replacements Family History Father Cancer Sister Diabetes mellitus Overweight Sister Diabetes mellitus Sister Arthritis Incontinence Other Family history non-contributory Social History household members: family Smoking Status: Never smoker alcohol intake: never Smoking Status: Never smoker alcohol intake frequency: 0-2 drinks per day Exam Initial Vital Signs Initial Vital Signs: Vital Signs Pulse Rate 120 H 12/25/24 17:19 Pulse Oximetry 94 12/25/24 17:19 General: Healthy appearing, in no acute distress. Able to give a complete and coherent history. Well-nourished well-developed HEENT: Moist mucous membranes, normal sclera with reactive pupils, Neck: No JVD, Respiratory: Lungs are clear to auscultation, no wheezing no rales no rhonchi. Full and symmetrical air movement Cardiac: Regular tachycardia at 160 beats per minute Abdomen: Soft, nontender, no rebound or guarding, no flank pain Skin: Warm and dry, no rashes Neurologic: Grossly neurologically intact with no obvious asymmetries or abnormalities Extremities: No trauma, well perfused, no lower extremity edema Psych: Cooperative, appropriate insight and affect Course Orders Ordered: ED Orders 12/25/24 17:16 XR chest 1V Stat EKG-12 Lead Stat 12/25/24 17:30 Complete Blood Count AUTO DIFF Stat Comprehensive Metabolic Panel Stat Lipase Stat Magnesium Stat NT-proBNP (BNP-Adult 18+) Stat PTT Partial Thromboplastin Shane Stat Prothrombin Time INR Stat Troponin & CK Cardiac Panel Stat Discontinued Medications Adenosine (Adenosine 6 Mg/2 Ml Vial) 6 mg IV NOW ONE Stop: 12/25/24 17:30 Last Admin: 12/25/24 17:37 Dose: Not Given Documented By: DEV Adenosine (Adenosine 6 Mg/2 Ml Vial) 12 mg IV NOW ONE Stop: 12/25/24 17:30 Last Admin: 12/25/24 17:37 Dose: Not Given Documented By: DEV Aspirin (Aspirin 81 Mg Chew Tab) 324 mg PO NOW ONE Stop: 12/25/24 17:17 Last Admin: 12/25/24 17:36 Dose: Not Given Documented By: LAUROF Vital Signs Vital signs: Vital Signs - 8 hr 12/25/24 17:19 12/25/24 17:20 12/25/24 17:20 Temperature Pulse Rate 120 H 169 H Respiratory Rate Blood Pressure 153/92 H Pulse Oximetry 94 96 Oxygen Delivery Method 12/25/24 17:27 12/25/24 17:30 12/25/24 17:30 Temperature 98.5 F Pulse Rate 171 H 101 H Respiratory Rate 26 H 42 H Blood Pressure 153/92 H 147/71 H Pulse Oximetry 97 96 Oxygen Delivery Method Room Air 12/25/24 17:45 12/25/24 17:45 12/25/24 18:00 Temperature Pulse Rate 92 H Respiratory Rate 24 Blood Pressure 142/63 H 134/63 Pulse Oximetry 97 Oxygen Delivery Method 12/25/24 18:00 12/25/24 18:15 12/25/24 18:15 Temperature Pulse Rate 87 82 Respiratory Rate 22 22 Blood Pressure 132/65 Pulse Oximetry 97 97 Oxygen Delivery Method 12/25/24 18:30 12/25/24 18:30 12/25/24 18:45 Temperature Pulse Rate 78 Respiratory Rate 23 Blood Pressure 131/66 137/70 Pulse Oximetry 97 Oxygen Delivery Method 12/25/24 18:45 12/25/24 19:00 Temperature Pulse Rate 86 75 Respiratory Rate 25 H 29 H Blood Pressure Pulse Oximetry 97 97 Oxygen Delivery Method MDM - Arrhythmia/Palpitations Lab Data 12/25/24 17:30 12/25/24 17:30 Labs: Lab Results 12/25/24 Range/Units 17:30 WBC 7.0 (4.5-11.0) X10^3/uL RBC 4.61 (4.0-5.2) X10^6/uL Hgb 13.2 (12.0-16.0) g/dL Hct 39.9 (36-46) % MCV 86.5 (80-100) fL MCH 28.7 (26-34) PG MCHC 33.1 (30-36) % RDW 14.7 (11.6-14.8) % Plt Count 260 (150-400) X10^3/uL Neut % (Auto) 48.0 L (50-75) % Lymph % (Auto) 35.1 (25-40) % [place] % (Auto) 12.0 (3-14) % Eos % (Auto) 3.9 (2-4) % Baso % (Auto) 1.0 (0-2) % Neut # (Auto) 3400 (6128-4083) /uL Lymph # (Auto) 2500 (7942-3053) /uL [place] # (Auto) 800 (0-900) /uL Eos # (Auto) 300 (0-450) /uL Baso # (Auto) 100 (0-100) /uL PT 10.4 (9.4-12.5) SECONDS INR 0.9 (0.9-1.3) APTT 34 (25.1-36.5) SECONDS Sodium 138 (137-145) mmol/L Potassium 4.3 (3.4-5.1) mmol/L Chloride 105 (98-107) mmol/L Carbon Dioxide 24 (22-32) mmol/L BUN 29 H (7-17) mg/dL Creatinine 1.36 H (0.52-1.04) mg/dL Estimated GFR 38 L (>60) mL/min BUN/Creatinine Ratio 21.3 (6-22) Glucose 125 H (70-99) mg/dL Calcium 9.4 (8.4-10.2) mg/dL Magnesium 2.1 (1.6-2.3) mg/dL Total Bilirubin 0.4 (0.2-1.3) mg/dL AST 28 (14-36) IU/L ALT 19 (<35) IU/L Alkaline Phosphatase 57 (38-126) U/L Total Creatine Kinase 76 (30-135) U/L Troponin I 0.013 (0.01-0.034) ng/mL NT-Pro-B Natriuret Pep 425 (<450) pg/mL Total Protein 7.2 (6.3-8.2) g/dL Albumin 4.4 (3.5-5.0) g/dL Globulin 2.8 (1.7-4.1) g/dL Albumin/Globulin Ratio 1.6 (1.0-2.8) Lipase 146 (23-300) U/L MDM Narrative Medical decision making narrative: CC: 4 hours of significant tachycardia Complicating co-morbidities: Arthritis, no history of atrial fibrillation, there is a note of SVT in her chart Data collected from: patient, grandson Social determinants of health that may influence the patients condition: Patient lives on [facility] Medical records reviewed: Primary care notes from April of 2024 are reviewed Differential considered: SVT, atrial fibrillation with rapid ventricular response, stable V-tach, Exam documented above, pertinent findings include: Aside from her tachycardic exam is otherwise unremarkable Lab Test results independently reviewed as above. Pertinent findings: CBC is reassuring Metabolic panel shows no acute changes with stable renal function Troponin is not elevated BNP is not elevated Independently reviewed EKG: EKG on arrival shows SVT at a rate of 156. Significant ST-T abnormalities throughout At 5:30 p.m. patient spontaneously converted to sinus rhythm. Repeat EKG shows sinus rhythm at a rate of 95 with no ischemic changes Imaging studies independently reviewed: Chest x-ray is unremarkable Treatments: Attempted Valsalva maneuver with elevating the legs, this did not break her SVT Re-evaluations: Patient is feeling much better no complaints requesting discharge Discussion: 84-year-old woman with a history of SVT typically lasting minutes today has been for hours. She is noticing that her heart is going fast but got have any pain. No change to her chronic exertional dyspnea. Labs are unremarkable. We attempted vagal maneuvers in the emergency department that were unsuccessful. However with starting her IV she converted back to sinus rhythm. No additional medical interventions were required. At this point there was no indication for further workup, advanced imaging or hospitalization she is safe for discharge Discharge Plan Departure Patient Disposition: Home Clinical Impression: Nonsustained supraventricular tachycardia Instructions: DI for Paroxysmal Supraventricular Tachycardia Activity Restrictions/Additional Instructions: Thank you for coming in today You do have supraventricular tachycardia. this typically is a heart rhythm that will go fast and will usually fix itself. When it lasts for hours, as it did today, it is absolutely appropriate to come to the emergency department. You converted to sinus rhythm from the supraventricular tachycardia shortly after arriving in the emergency department without any additional treatment through an IV. Your blood work was all reassuring. There was no evidence of heart failure, electrolyte abnormalities or heart attack There is nothing that you need to change do differently at this point. I would recommend a follow up with your primary care physician after your ER visit today. Prescriptions: No Action Disabled Parking See Rx Instructions .ROUTE .COMPLEX Qty: 365 0RF Rx Instructions: I find this patient to be medically disabled and qualified for Disabled Parking as indicated and signed on the accompanying Disabled Parking Application for Individuals acetaminophen 325 mg Tablet 650 mg PO TID Qty: 180 2RF Referrals: Chase Wang MD [Primary Care Provider, [facility]] Stand Alone Forms: Patient Portal/API
== END 2024-12-25 19:37 | disposition home or self-care (01) ==
PROVIDERS: Emergency Provider Emergency Medicine; Family Provider Family Medicine; PCP Family Medicine
DX: I47.10 Supraventricular tachycardia, unspecified (principal)
CPT/HCPCS: 36415; 71045; 80053; 82550; 83690; 83735; 83880; 84484; 85025; 85610; 85730; 93005; 99283; 99284